=== PATIENT | female | born 1960 | race Caucasian/White ===

== ENCOUNTER → 2017-07-17 | Day surgery (SDC) | payer OTHER, MEDICAID, SELFPAY | END | disposition home or self-care (01) | PROVIDERS: Family Provider Family Medicine; PCP Family Medicine; Visit Provider Surgery | DX: Z12.11 Encounter for screening for malignant neoplasm of colon (principal); K57.30 Diverticulosis of large intestine without perforation or abscess without bleeding; K64.0 First degree hemorrhoids | CPT/HCPCS: 45378; 99152; 99153; J2250; J3010 ==

== ENCOUNTER → 2018-01-02 06:58 | Outpatient (CLI) | payer OTHER, MEDICAID, SELFPAY ==
[2018-01-02 08:19] LABS: Add Manual Diff / Slide Review NO; Basophils Percent Auto 0.8 % (0-2); Eosinophils Percent Auto 1.2 % (2-4); Hematocrit 39.1 % (36-46); Hemoglobin 13.4 g/dL (12.0-16.0); Lymphocytes Percent Auto 47.1 % (25-40); Mean Corpuscular HGB Conc 34.3 % (30-36); Mean Corpuscular Hemoglobin 33.6 PG (26-34); Mean Corpuscular Volume 97.9 fL (80-100); Monocytes Percent Auto 13.5 % (3-14); Neutrophils Absolute Auto 1300 /uL (3000-5900); Neutrophils Percent Auto 37.4 % (50-75); Platelet Count 150 X10^3/uL (150-400); Red Blood Cell Count 3.99 X10^6/uL (4.0-5.2); Red Cell Distribution Width 13.4 % (11.6-14.8); White Blood Cell Count 3.4 X10^3/uL (4.5-11.0)
[2018-01-02 09:14] LABS: Alanine Aminotransferase 34 IU/L (9-52); Albumin 4.7 g/dL (3.5-5.0); Albumin Globulin Ratio 1.7 (1.0-2.8); Alkaline Phosphatase 46 U/L (38-126); Aspartate Aminotransferase 26 IU/L (14-36); BUN Creatinine Ratio 41.4 (6-22); Bilirubin Total 0.5 mg/dL (0.2-1.3); Blood Urea Nitrogen 29 mg/dL (7-17); Calcium 9.4 mg/dL (8.4-10.2); Carbon Dioxide 27 mmol/L (22-32); Chloride 97 mmol/L (98-107); Cholesterol 160 mg/dL (140-199); Estimated Glomerular Filt Rate > 60.0 mL/min (>60); Globulin 2.7 g/dL (1.7-4.1); Glucose 91 mg/dL (70-100); HDL Cholesterol 70 mg/dL (40-60); HEMOLYSIS < 15 (0-50); LDL Cholesterol Calculated 76 mg/dL (<100); Potassium 4.2 mmol/L (3.4-5.1); Sodium 134 mmol/L (137-145); Total Protein 7.4 g/dL (6.3-8.2); Triglycerides 72 mg/dL (35-150)
[2018-01-02 09:57] LABS: Thyroid Stimulating Hormone 4.47 uIU/mL (0.47-4.68)
== END ==
PROVIDERS: PCP Family Medicine; Visit Provider Family Medicine
DX: R60.9 Edema, unspecified (principal)
CPT/HCPCS: 36415; 80053; 80061; 84443; 85025

== ENCOUNTER 2018-01-07 13:00 | Emergency (ER) | payer OTHER, MEDICAID, SELFPAY ==
[2018-01-07 13:03] VITALS: BP 143/82; PULSE 84; RESP 16; TEMP 37; O2SAT 98; BMI 19.5
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
--- NOTE | 2018-01-07 13:41 | PC.NURSE ---
rock worker aware of need for resources. Will be down shortly.
[2018-01-07 13:44] LABS: Add Manual Diff / Slide Review NO; Basophils Percent Auto 0.9 % (0-2); Eosinophils Percent Auto 0.7 % (2-4); Hematocrit 39.5 % (36-46); Hemoglobin 13.2 g/dL (12.0-16.0); Lymphocytes Percent Auto 35.3 % (25-40); Mean Corpuscular HGB Conc 33.3 % (30-36); Mean Corpuscular Hemoglobin 32.8 PG (26-34); Mean Corpuscular Volume 98.3 fL (80-100); Monocytes Percent Auto 16.7 % (3-14); Neutrophils Absolute Auto 1800 /uL (3000-5900); Neutrophils Percent Auto 46.4 % (50-75); Platelet Count 147 X10^3/uL (150-400); Red Blood Cell Count 4.02 X10^6/uL (4.0-5.2)
[2018-01-07 13:59] LABS: Acetaminophen < 10 ug/mL (10-30); Alanine Aminotransferase 57 IU/L (9-52); Albumin 4.5 g/dL (3.5-5.0); Albumin Globulin Ratio 1.6 (1.0-2.8); Alkaline Phosphatase 55 U/L (38-126); Aspartate Aminotransferase 73 IU/L (14-36); Bilirubin Total 0.3 mg/dL (0.2-1.3); Blood Urea Nitrogen 17 mg/dL (7-17); Calcium 8.3 mg/dL (8.4-10.2); Carbon Dioxide 29 mmol/L (22-32); Chloride 107 mmol/L (98-107); Estimated Glomerular Filt Rate > 60.0 mL/min (>60); Globulin 2.8 g/dL (1.7-4.1); Glucose 89 mg/dL (70-100); HEMOLYSIS < 15 (0-50); Potassium 3.9 mmol/L (3.4-5.1); Sodium 153 mmol/L (137-145); Total Protein 7.3 g/dL (6.3-8.2)
[2018-01-07 14:00] LABS: Salicylate < 1.0 mg/dL (<20)
[2018-01-07 14:12] LABS: Ethanol (ETOH) 467 mg/dL
--- NOTE | 2018-01-07 15:13 | PC.NURSE ---
director of social media marketing at bedside.
[2018-01-07] MEDS: MULTIVITAMIN 1 TABLET 1 TAB PO (15:28)
[2018-01-07] MEDS: THIAMINE 100 MG TABLET PO (15:28)
--- NOTE | 2018-01-07 16:35 | PC.NURSE ---
pt given food, and three cups of water.
--- NOTE | 2018-01-07 17:36 | PC.NURSE ---
Spoke w/ pt brother Silviano is coming to get patient and will take responsibility for her. She is ambulatory, speech is clear, taking po fluids / food. Tearful but easily calmed verbally.
[2018-01-07 17:43] VITALS: BP 132/77; PULSE 93; RESP 17; O2SAT 100
[2018-01-07 19:32] VITALS: BP 128/78; PULSE 78; RESP 14; O2SAT 98
--- NOTE | 2018-01-07 19:33 | PC.NURSE ---
Cleared for discharge. Pt clear mentation, steady gait, tolerating po fluids, clear speech. Home via cab.
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
== END 2018-01-07 19:35 | disposition home or self-care (01) ==
PROVIDERS: Emergency Provider Nurse Practitioner Family
DX: F10.929 Alcohol use, unspecified with intoxication, unspecified (principal)
CPT/HCPCS: 36415; 80053; 80320; 80329; 82075; 85025; 99283; G0480

== ENCOUNTER 2018-07-23 16:10 | Emergency (ER) | payer OTHER, MEDICAID, SELFPAY ==
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
--- NOTE | 2018-07-23 16:11 | DI.CT.S_ITS ---
PROCEDURE: CT CERVICAL SPINE WO CON INDICATIONS: ETOH right sided pain TECHNIQUE: Noncontrast 3 mm thick sections acquired from the skull base to the T4 level. Sagittal and coronal reformats were then constructed. For radiation dose reduction, the following was used: automated exposure control, adjustment of mA and/or kV according to patient size. COMPARISON: None. FINDINGS: Image quality: Excellent. Bones: No fractures or dislocations. Visualized superior ribs are intact. Spine degenerative disc disease and facet arthropathy. Soft tissues: Prevertebral soft tissues are normal in thickness. No paravertebral hematomas. No apical pneumothoraces. IMPRESSION: No fracture. No acute osseous lesion. If symptoms and/or clinical suspicion for pathology persists, evaluation with MRI may be helpful for further assessment. Dictated by: Juliane Harris MD, PhD on 07/23/2018 at 16:30 Approved by: Juliane Harris MD, PhD on 07/23/2018 at 16:45
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
[2018-07-23 16:17] VITALS: BP 140/89; PULSE 95; RESP 18; TEMP 36.6; O2SAT 97
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
[2018-07-23 16:34] VITALS: BP 140/89; PULSE 95; RESP 18; TEMP 36.6; O2SAT 97
--- NOTE | 2018-07-23 16:41 | PC.NURSE ---
eye ph tested. 7.0, neutral.
--- NOTE | 2018-07-23 17:24 | PC.NURSE ---
Pt ambulatory from ED. Per Doctor Leon, pt has been discharged. Pt left with out papers Primary RN notified.
--- NOTE | 2018-07-23 18:18 | PC.NURSE ---
cervical collar added on arrival, [address] head [address] neck [address]
== END 2018-07-23 18:19 | disposition home or self-care (01) ==
PROVIDERS: Emergency Provider Emergency Medicine; Family Provider Family Medicine; PCP Family Medicine
DX: S16.1XXA Strain of muscle, fascia and tendon at neck level, initial encounter (principal); V43.52XA Car driver injured in collision with other type car in traffic accident, initial encounter
CPT/HCPCS: 70450; 71045; 72125; 99282; 99284

== ENCOUNTER 2019-09-26 11:19 | Inpatient (IN) | payer OTHER, MEDICAID, SELFPAY ==
[2019-09-26] VITALS (38 sets, daily range): BP systolic 100–172; BP diastolic 64–94; PULSE 75–189; RESP 12–32; TEMP 36.5–37.3; O2SAT 88–100; BMI 19.9
--- NOTE | 2019-09-26 11:23 | ED.ALCOHOL ---
HPI - Alcohol General Chief Complaint: Trauma Stated Complaint: Detox Time Seen by Provider: 09/26/19 11:23 History of Present Illness HPI narrative: CC: alcohol intoxication, agitated questionable withdrawal HPI: The patient is a 59-year-old female who is a known chronic alcoholic. The patient just prior to arrival was found on the floor by her father and brother. The patient was initially unresponsive. The patient has become agitated since then flailing her arms around. With diffuse tremor. There has been no apparent seizure activity. It is unknown whether not the patient has had alcoholic delirium tremens or alcoholic withdrawal seizures in the past. She has multiple bruises over her right chin and face neck arms knees and legs. The patient is unable at this time to provide any history of her own. Because of the patient's flailing and agitation 2 mg of Ativan has been administered IV. The patient at this time does not appear to be having an active seizure but appears to be acutely delirious. Related Data Home Medications Medication Instructions Recorded Confirmed No Known Home Medications 12/12/17 11/06/18 Allergies Allergy/AdvReac Type Severity Reaction Status Date / Time No Known Allergies Allergy Verified 11/06/18 10:51 Review of Systems Review of Systems Narrative: At this time because of the patient's mental status we are unable to obtain review of systems. Patient History Medical History (Updated 09/26/19 @ 16:31 by Osmin Andrade DO) Alcohol abuse (Acute 06/05/15) Alcohol withdrawal delirium (Acute) Social History Smoking Status: Never smoker Smoking Status: Never smoker alcohol intake frequency: 0-2 drinks per day Substance Use Type: does not use Exam Narrative Exam Narrative: PHYSICAL EXAM: CONSTITUTIONAL: The patient is acutely delirious, thrashing about throwing her arms around. She does not answer any questions. She questionably may be seizing. She has rhythm at a cool motions of her eyes and her mouth. She is staring straight ahead. HEAD: AT/NC except for extensive bruising of her right cheek and chin and neck with a combination of violaceous and yellow brown bruising which questionably indicates more than at acute bruising. EENT: PERRL, NOSE:No epistaxis or nasal drainage MOUTH: The patient's has brownish discoloration around her lips. She does not cooperate or follow directions and open her mouth. NECK: Supple, no obvious JVD, Trachea is midline without stridor, no palpable LN. SPINE: Palpation of the cervical, Thoracic, Lumbar or Sacral spine reveals no gross deformity or tenderness. No CVA tenderness. No bruising of her chest costovertebral angle pelvis or sacrum on rolling the patient over. THORAX: No deformity, retractions, chest wall tenderness. LUNGS: Clear symmetrical spontaneous respirations. HEART: Regular rhythm and rate with distant heart tones no murmur. ABDOMEN: Soft, non-tender, no guarding, rebound, rigidity or palpable mass. LYMPHATIC: no palpable lymph nodes or spleen. EXTREMITIES: No edema, deformity, tenderness or cyanosis. The patient has multiple scattered bruises over her knee he says with a few abrasions over her anterior legs and her dorsal surface of her feet. SKIN: No rash, NEURO: Cranial nerves appear to be symmetrical without facial asymmetry. She moves all 4 extremities in withdrawal to noxious stimuli. The patient has been sedated with a total of 4 mg of Ativan IV and 500 mg of Keppra. MENTAL HEALTH: Acute delirium with agitation secondary to acute alcohol withdrawal. Initial Vital Signs Initial Vital Signs: Vital Signs Temperature 99.1 F 09/26/19 11:28 Pulse Rate 122 H 09/26/19 11:28 Respiratory Rate 22 09/26/19 11:28 Blood Pressure 157/84 H 09/26/19 11:28 Pulse Oximetry 96 09/26/19 11:28 Course Course Course Narrative: 1139: The patient was administered 2 mg of Ativan which partially helped to calm her agitation down. However now she is moving her jaw arithmetic Ce arm biting up and down as though she may be seizing. The other question is whether not this is a tardive dyskinetic motion. The patient will be administered 25 mg of Benadryl IV. 12:11 the patient's lactic acid is elevated at 5.5. She has a white blood count of 11.5. A cath urinalysis reveals that she has a urinary tract infection. Is the patient's lactic acid elevated because she is dehydrated, did she have a alcohol withdrawal seizure or is it elevated because she is septic secondary to urinary tract infection the patient has been ordered 2 L of normal saline as a bolus rehydration after which a repeat lactate will be checked. Do blood cultures have been ordered on the patient and she will be administered 2 g of cefepime. 1255: The patient's WBC is 11.5, hemoglobin 14.9, hematocrit 44.0, platelets 38103, protime 11.2, INR 1.0, PTT 26 seconds, sodium 147, potassium low at 3.3, chloride 104, CO2 21, BUN 61, glucose 115, creatinine 1.03, GFR 55. Lactic acid is 5.4, bilirubin is 2.4, AST 1 1116, ALT 316, alk-phos 75, urine drug screen is negative. CPK is 50,155 consistent with rhabdomyolysis troponin is 0.014. The patient's EtOH remains pending as well as serum ammonia. Chest x-ray reveals no acute cardiopulmonary pathology no evidence of aspiration. CT of the patient's cervical spine reveals no acute cervical spine fracture malalignment however there is cervical spondylosis. CT of the patient's head reveals greater than expected parenchymal volume loss. However there is no evidence of an acute stroke hemorrhage mass effect. The patient will need to be transferred to a facility that has dialysis capabilities. I will call [facility] to discuss transferring the patient. 1313: The patient's alcohol is 0. I believe the patient is going through alcohol withdrawal and it is unknown how long she was down on the floor in her residence. 1345: Serum ammonia is 11 1408: I discussed the patient with the automatic door mechanic on-call at [facility] and he felt that the patient does not need immediate transfer to be seen by a automatic door mechanic at this time her original creatinine was 0.5 with a normal GFR. Today her creatinine is 1.05 with a GFR of 55. He states that they would do nothing more than to continue to hydrate the patient for the next 24-48 hours and after that if her renal function deteriorated he would be more than willing to arm consult and except the patient in transfer. I am going to repeat the patient's creatinine and GFR as well as CPK and discuss the patient with the [facility] hospitalist on-call. 1468 I discussed the patient with the hospitalist Dr. Andrade who requested that I repeat the patient's liver function tests and obtain a salicylate level and acetaminophen level. To be sure that this is all secondary to acute alcohol withdrawal and acute alcoholism rather than a toxic exposure acetaminophen, salicylate or other drugs. 1500: After 2 L of fluid rehydration the patient's lactic acid is down to 0.7 from 5.5 suggesting that the patient may have had an alcohol withdrawal seizure. Her CPK is significantly improved and is down to 30,739. A salicylate level and acetaminophen level remain pending at this time. The rest of the patient's urine drug screen was negative for any other drugs. 1546: The patient has been admitted to the intensive care unit for delirium tremens and alcohol withdrawal to the care of . The patient's AST he has dropped to 706 ALT is 216 an acetaminophen is less than 10 and salicylate is 1. The patient's abnormal liver functions appear to be all secondary to her chronic alcoholism. Orders Ordered: ED Orders 09/26/19 11:05 Complete Blood Count AUTO DIFF Stat Comprehensive Metabolic Panel Stat Ethanol (ETOH) Stat Magnesium Stat Partial Thromboplastin Time Stat Prothrombin Time INR Stat Troponin & CK Cardiac Panel Stat 09/26/19 11:27 CT head/brain wo con Stat XR chest 1V Stat 09/26/19 11:29 CT cervical spine wo con Stat 09/26/19 11:35 Ictotest Urine Stat Lactate (Lactic Acid) Stat Type and Screen Stat Urinalysis and Microscopic Stat Urine Culture Stat Urine Drug Screen, Rapid Stat EKG-12 Lead Stat 09/26/19 11:45 Arterial Blood Gas Stat 09/26/19 12:45 Blood Culture Stat 09/26/19 13:20 Ammonia (NH3) Stat 09/26/19 14:20 Acetaminophen Stat CKMB Panel (CK + CKMB) Stat Creatinine & eGFR Stat Hepatic (Liver) Panel Stat Salicylate Stat Acetaminophen (Tylenol) 650 mg PO Q6HR PRN PRN Reason: Fever/Mild Pain (1-3) Folic Acid (Folic Acid) 1 mg PO DAILY INEZ Dextrose (Dextrose 5% Water) 1,000 mls @ 150 mls/hr IV CONT INEZ Last Admin: 09/26/19 16:42 Dose: 150 mls/hr Documented by: MSTEWART Ceftriaxone Sodium/Dextrose (Rocephin) 1 gm in 50 mls @ 100 mls/hr IV Q24H INEZ Lorazepam (Ativan) 0 mg IV CIWAPRN PRN; Protocol PRN Reason: Alcohol Withdrawal Multivitamins (Tab-A-Thompson) 1 tab PO DAILY INEZ Naloxone HCl (Narcan) 0.2 mg IV Q2MIN PRN PRN Reason: Opiate Reversal Ondansetron HCl (Zofran) 4 mg IV Q8HR PRN PRN Reason: Nausea And Vomiting Last Admin: 09/26/19 16:42 Dose: 4 mg Documented by: SAVANNA Discontinued Medications Diphenhydramine HCl (Benadryl) 25 mg IV NOW ONE Stop: 09/26/19 11:42 Last Admin: 09/26/19 11:52 Dose: 25 mg Documented by: DYAN Sodium Chloride (Normal Saline 0.9%) 1,000 mls @ 2,000 mls/hr IV BOLUS PRN PRN Reason: Fluid replacement Last Infusion: 09/26/19 13:35 Dose: 0 mls/hr Documented by: Admin: 09/26/19 11:41 Dose: 2,000 mls/hr Documented by: DYAN Levetiracetam 500 mg/ Sodium (Chloride) 105 mls @ 420 mls/hr IV NOW ONE Stop: 09/26/19 11:39 Last Infusion: 09/26/19 12:15 Dose: 0 mls/hr Documented by: Admin: 09/26/19 11:46 Dose: 420 mls/hr Documented by: DYAN Cefepime HCl 2 gm/ Sodium (Chloride) 100 mls @ 200 mls/hr IV NOW ONE Stop: 09/26/19 12:14 Last Infusion: 09/26/19 13:36 Dose: 0 mls/hr Documented by: Admin: 09/26/19 12:53 Dose: 200 mls/hr Documented by: WENDY Sodium Chloride (Normal Saline 0.9%) 1,000 mls @ 150 mls/hr IV CONT INEZ Last Infusion: 09/26/19 15:39 Dose: 0 mls/hr Documented by: Admin: 09/26/19 13:44 Dose: 150 mls/hr Documented by: WENDY Lorazepam (Ativan) 2 mg IV NOW ONE Stop: 09/26/19 11:24 Last Admin: 09/26/19 11:40 Dose: 2 mg Documented by: DYAN Lorazepam (Ativan) 2 mg IV NOW ONE Stop: 09/26/19 11:38 Last Admin: 09/26/19 12:47 Dose: Not Given Documented by: TAL Phenobarbital Sodium (Phenobarbital Sodium) 65 mg IV NOW ONE Stop: 09/26/19 16:16 Thiamine HCl (Vitamin B-1) 100 mg IV NOW ONE Stop: 09/26/19 11:31 Last Admin: 09/26/19 11:40 Dose: 100 mg Documented by: DYAN Vital Signs Vital signs: Vital Signs - 8 hr 09/26/19 11:28 09/26/19 11:35 09/26/19 11:50 Temperature 99.1 F Pulse Rate 122 H 96 H 92 H Respiratory Rate 22 18 19 Blood Pressure 157/84 H 151/70 H Pulse Oximetry 96 99 98 09/26/19 12:00 09/26/19 12:22 09/26/19 12:30 Temperature Pulse Rate 90 189 H 85 Respiratory Rate 20 20 32 H Blood Pressure 116/74 Pulse Oximetry 98 88 L 100 09/26/19 12:34 09/26/19 12:45 09/26/19 13:00 Temperature Pulse Rate 87 80 84 Respiratory Rate 24 18 19 Blood Pressure 170/93 H 143/86 H 147/89 H Pulse Oximetry 100 99 99 09/26/19 13:15 09/26/19 13:30 09/26/19 13:45 Temperature Pulse Rate 85 83 82 Respiratory Rate 17 15 12 Blood Pressure 125/76 121/72 134/75 Pulse Oximetry 98 99 100 09/26/19 14:00 09/26/19 14:15 09/26/19 14:36 Temperature Pulse Rate 82 80 95 H Respiratory Rate 15 14 21 Blood Pressure 125/74 125/72 172/94 H Pulse Oximetry 100 99 100 09/26/19 14:45 Temperature Pulse Rate 95 H Respiratory Rate 23 Blood Pressure 155/82 H Pulse Oximetry 99 MDM - Alcohol Medical Records Attestation: I reviewed the patient's medical records. Lab Data Attestation: I reviewed the patient's lab results. Result diagrams: 09/26/19 11:05 09/26/19 14:20 Labs: Lab Results 09/26/19 09/26/19 09/26/19 Range/Units 11:05 11:05 11:05 WBC 11.5 H (4.5-11.0) X10^3/uL RBC 4.48 (4.0-5.2) X10^6/uL Hgb 14.9 (12.0-16.0) g/dL Hct 44.3 (36-46) % MCV 98.8 (80-100) fL MCH 33.2 (26-34) PG MCHC 33.6 (30-36) % RDW 13.3 (11.6-14.8) % Plt Count 87 L (150-400) X10^3/uL Neut % (Auto) 78.3 H (50-75) % Lymph % (Auto) 7.2 L (25-40) % Allen % (Auto) 14.4 H (3-14) % Eos % (Auto) 0.0 L (2-4) % Baso % (Auto) 0.1 (0-2) % Neut # (Auto) 9000 H (0773-4474) /uL Lymph # (Auto) 800 L (7284-5610) /uL Allen # (Auto) 1700 H (0-900) /uL Eos # (Auto) 0 (0-450) /uL Baso # (Auto) 0 (0-100) /uL PT 11.2 (10.1-12.7) SECONDS INR 1.0 (0.9-1.3) APTT 26 L (26.4-36.2) SECONDS ABG pH (7.35-7.45) ABG pCO2 (35-45) mmHg ABG pO2 (80-100) mmHg ABG HCO3 (22-26) mmol/L ABG Total CO2 (21-31) mmol/L ABG O2 Saturation (95-100) % ABG Base Excess (-2-2) mmol/L FiO2 Sodium 147 H (137-145) mmol/L Potassium 3.3 L (3.4-5.1) mmol/L Chloride 104 (98-107) mmol/L Carbon Dioxide 21 L (22-32) mmol/L BUN 61 H (7-17) mg/dL Creatinine 1.03 (0.52-1.04) mg/dL Estimated GFR 55.0 L (>60) mL/min BUN/Creatinine Ratio 59.2 H (6-22) Glucose 115 H (70-100) mg/dL Lactate (0.7-2.1) mmol/L Calcium 11.1 H (8.4-10.2) mg/dL Magnesium (1.6-2.3) mg/dL Total Bilirubin 2.4 H (0.2-1.3) mg/dL Conjugated Bilirubin (0.0-0.3) md/dL Unconjugated Bilirubin (0.0-1.1) mg/dL AST 1116 H (14-36) IU/L ALT 316 H (<35) IU/L Alkaline Phosphatase 75 (38-126) U/L Ammonia (9-30) umol/L Total Creatine Kinase 87406 H (30-135) U/L CK-MB (CK-2) 32.90 H (<2.37) ng/mL CK-MB (CK-2) Rel Index 0.1 L (1.5-5.0) % Troponin I 0.014 (0.01-0.034) ng/mL Total Protein 9.4 H (6.3-8.2) g/dL Albumin 5.3 H (3.5-5.0) g/dL Globulin 4.1 (1.7-4.1) g/dL Albumin/Globulin Ratio 1.3 (1.0-2.8) Urine Color Urine Appearance Urine pH (4.5-8.0) Ur Specific [place] (1.000-1.035) Urine Protein (Negative) Urine Glucose (UA) (Negative) g/dL Urine Ketones (NEGATIVE) Urine Occult Blood (Negative) Urine Nitrate (Negative) Urine Bilirubin (NEGATIVE) Ur Bilirubin Confirm (Negative) Urine Urobilinogen (0.2) E.U./dL Ur Leukocyte Esterase (NEGATIVE) Urine RBC (0-5/HPF) Urine WBC (0-5/HPF) Urine Bacteria (None) Hyaline Casts (None) Urine Mucus (Negative) Ur Culture Indicated? Salicylates (<20) mg/dL U Opiates 300ng/mL cut (Negative) Ur Oxycodone Screen (Negative) Urine Methadone Screen (Negative) Acetaminophen (10-30) ug/mL Ur Barbiturates Screen (Negative) U Tricyclic Antidepress (Negative) Ur Phencyclidine Scrn (Negative) Ur Amphetamines Screen (Negative) U Methamphetamines Scrn (Negative) Ur MDMA Scrn (Ecstasy) (Negative) U Benzodiazepines Scrn (Negative) Urine Cocaine Screen (Negative) U Marijuana (THC) Screen (Negative) Ethyl Alcohol < 10 ( - 10) mg/dL COVID-19 PCR (Negative) Blood Type Antibody Screen 09/26/19 09/26/19 09/26/19 Range/Units 11:05 11:05 11:35 WBC (4.5-11.0) X10^3/uL RBC (4.0-5.2) X10^6/uL Hgb (12.0-16.0) g/dL Hct (36-46) % MCV (80-100) fL MCH (26-34) PG MCHC (30-36) % RDW (11.6-14.8) % Plt Count (150-400) X10^3/uL Neut % (Auto) (50-75) % Lymph % (Auto) (25-40) % Allen % (Auto) (3-14) % Eos % (Auto) (2-4) % Baso % (Auto) (0-2) % Neut # (Auto) (1337-9773) /uL Lymph # (Auto) (7941-5849) /uL Allen # (Auto) (0-900) /uL Eos # (Auto) (0-450) /uL Baso # (Auto) (0-100) /uL PT (10.1-12.7) SECONDS INR (0.9-1.3) APTT (26.4-36.2) SECONDS ABG pH (7.35-7.45) ABG pCO2 (35-45) mmHg ABG pO2 (80-100) mmHg ABG HCO3 (22-26) mmol/L ABG Total CO2 (21-31) mmol/L ABG O2 Saturation (95-100) % ABG Base Excess (-2-2) mmol/L FiO2 Sodium (137-145) mmol/L Potassium (3.4-5.1) mmol/L Chloride (98-107) mmol/L Carbon Dioxide (22-32) mmol/L BUN (7-17) mg/dL Creatinine (0.52-1.04) mg/dL Estimated GFR (>60) mL/min BUN/Creatinine Ratio (6-22) Glucose (70-100) mg/dL Lactate 5.4 H* (0.7-2.1) mmol/L Calcium (8.4-10.2) mg/dL Magnesium 2.5 H (1.6-2.3) mg/dL Total Bilirubin (0.2-1.3) mg/dL Conjugated Bilirubin (0.0-0.3) md/dL Unconjugated Bilirubin (0.0-1.1) mg/dL AST (14-36) IU/L ALT (<35) IU/L Alkaline Phosphatase (38-126) U/L Ammonia (9-30) umol/L Total Creatine Kinase (30-135) U/L CK-MB (CK-2) (<2.37) ng/mL CK-MB (CK-2) Rel Index (1.5-5.0) % Troponin I (0.01-0.034) ng/mL Total Protein (6.3-8.2) g/dL Albumin (3.5-5.0) g/dL Globulin (1.7-4.1) g/dL Albumin/Globulin Ratio (1.0-2.8) Urine Color Urine Appearance Urine pH (4.5-8.0) Ur Specific [place] (1.000-1.035) Urine Protein (Negative) Urine Glucose (UA) (Negative) g/dL Urine Ketones (NEGATIVE) Urine Occult Blood (Negative) Urine Nitrate (Negative) Urine Bilirubin (NEGATIVE) Ur Bilirubin Confirm (Negative) Urine Urobilinogen (0.2) E.U./dL Ur Leukocyte Esterase (NEGATIVE) Urine RBC (0-5/HPF) Urine WBC (0-5/HPF) Urine Bacteria (None) Hyaline Casts (None) Urine Mucus (Negative) Ur Culture Indicated? Salicylates (<20) mg/dL U Opiates 300ng/mL cut (Negative) Ur Oxycodone Screen (Negative) Urine Methadone Screen (Negative) Acetaminophen (10-30) ug/mL Ur Barbiturates Screen (Negative) U Tricyclic Antidepress (Negative) Ur Phencyclidine Scrn (Negative) Ur Amphetamines Screen (Negative) U Methamphetamines Scrn (Negative) Ur MDMA Scrn (Ecstasy) (Negative) U Benzodiazepines Scrn (Negative) Urine Cocaine Screen (Negative) U Marijuana (THC) Screen (Negative) Ethyl Alcohol Cancelled ( - 10) mg/dL COVID-19 PCR (Negative) Blood Type Antibody Screen 09/26/19 09/26/1909/25/20 Range/Units 11:35 11:35 11:35 WBC (4.5-11.0) X10^3/uL RBC (4.0-5.2) X10^6/uL Hgb (12.0-16.0) g/dL Hct (36-46) % MCV (80-100) fL MCH (26-34) PG MCHC (30-36) % RDW (11.6-14.8) % Plt Count (150-400) X10^3/uL Neut % (Auto) (50-75) % Lymph % (Auto) (25-40) % Allen % (Auto) (3-14) % Eos % (Auto) (2-4) % Baso % (Auto) (0-2) % Neut # (Auto) (1712-5456) /uL Lymph # (Auto) (5283-6866) /uL Allen # (Auto) (0-900) /uL Eos # (Auto) (0-450) /uL Baso # (Auto) (0-100) /uL PT (10.1-12.7) SECONDS INR (0.9-1.3) APTT (26.4-36.2) SECONDS ABG pH (7.35-7.45) ABG pCO2 (35-45) mmHg ABG pO2 (80-100) mmHg ABG HCO3 (22-26) mmol/L ABG Total CO2 (21-31) mmol/L ABG O2 Saturation (95-100) % ABG Base Excess (-2-2) mmol/L FiO2 Sodium (137-145) mmol/L Potassium (3.4-5.1) mmol/L Chloride (98-107) mmol/L Carbon Dioxide (22-32) mmol/L BUN (7-17) mg/dL Creatinine (0.52-1.04) mg/dL Estimated GFR (>60) mL/min BUN/Creatinine Ratio (6-22) Glucose (70-100) mg/dL Lactate (0.7-2.1) mmol/L Calcium (8.4-10.2) mg/dL Magnesium (1.6-2.3) mg/dL Total Bilirubin (0.2-1.3) mg/dL Conjugated Bilirubin (0.0-0.3) md/dL Unconjugated Bilirubin (0.0-1.1) mg/dL AST (14-36) IU/L ALT (<35) IU/L Alkaline Phosphatase (38-126) U/L Ammonia (9-30) umol/L Total Creatine Kinase (30-135) U/L CK-MB (CK-2) (<2.37) ng/mL CK-MB (CK-2) Rel Index (1.5-5.0) % Troponin I (0.01-0.034) ng/mL Total Protein (6.3-8.2) g/dL Albumin (3.5-5.0) g/dL Globulin (1.7-4.1) g/dL Albumin/Globulin Ratio (1.0-2.8) Urine Color Yellow Urine Appearance Sl cloudy Urine pH 6.5 (4.5-8.0) Ur Specific [place] 1.020 (1.000-1.035) Urine Protein 3+ H (Negative) Urine Glucose (UA) Negative (Negative) g/dL Urine Ketones 1+ H (NEGATIVE) Urine Occult Blood 3+ H (Negative) Urine Nitrate Positive H (Negative) Urine Bilirubin 1+ H (NEGATIVE) Ur Bilirubin Confirm Negative (Negative) Urine Urobilinogen 0.2 (0.2) E.U./dL Ur Leukocyte Esterase 1+ H (NEGATIVE) Urine RBC 1-5/hpf (0-5/HPF) Urine WBC 30-100/hpf H (0-5/HPF) Urine Bacteria Many (>30) H (None) Hyaline Casts 0-1/lpf (None) Urine Mucus 2+ H (Negative) Ur Culture Indicated? Specimen cultured Salicylates (<20) mg/dL U Opiates 300ng/mL cut Negative (Negative) Ur Oxycodone Screen Negative (Negative) Urine Methadone Screen Negative (Negative) Acetaminophen (10-30) ug/mL Ur Barbiturates Screen Negative (Negative) U Tricyclic Antidepress Negative (Negative) Ur Phencyclidine Scrn Negative (Negative) Ur Amphetamines Screen Negative (Negative) U Methamphetamines Scrn Negative (Negative) Ur MDMA Scrn (Ecstasy) Negative (Negative) U Benzodiazepines Scrn Negative (Negative) Urine Cocaine Screen Negative (Negative) U Marijuana (THC) Screen Negative (Negative) Ethyl Alcohol ( - 10) mg/dL COVID-19 PCR (Negative) Blood Type A Positive Antibody Screen Negative 09/26/19 09/26/19 09/26/19 Range/Units 11:45 13:20 13:35 WBC (4.5-11.0) X10^3/uL RBC (4.0-5.2) X10^6/uL Hgb (12.0-16.0) g/dL Hct (36-46) % MCV (80-100) fL MCH (26-34) PG MCHC (30-36) % RDW (11.6-14.8) % Plt Count (150-400) X10^3/uL Neut % (Auto) (50-75) % Lymph % (Auto) (25-40) % Allen % (Auto) (3-14) % Eos % (Auto) (2-4) % Baso % (Auto) (0-2) % Neut # (Auto) (9882-4717) /uL Lymph # (Auto) (9227-0693) /uL Allen # (Auto) (0-900) /uL Eos # (Auto) (0-450) /uL Baso # (Auto) (0-100) /uL PT (10.1-12.7) SECONDS INR (0.9-1.3) APTT (26.4-36.2) SECONDS ABG pH 7.38 (7.35-7.45) ABG pCO2 30.4 L (35-45) mmHg ABG pO2 84 (80-100) mmHg ABG HCO3 18 L (22-26) mmol/L ABG Total CO2 19 L (21-31) mmol/L ABG O2 Saturation 96 (95-100) % ABG Base Excess -7.0 L (-2-2) mmol/L FiO2 21 Sodium (137-145) mmol/L Potassium (3.4-5.1) mmol/L Chloride (98-107) mmol/L Carbon Dioxide (22-32) mmol/L BUN (7-17) mg/dL Creatinine (0.52-1.04) mg/dL Estimated GFR (>60) mL/min BUN/Creatinine Ratio (6-22) Glucose (70-100) mg/dL Lactate (0.7-2.1) mmol/L Calcium (8.4-10.2) mg/dL Magnesium (1.6-2.3) mg/dL Total Bilirubin (0.2-1.3) mg/dL Conjugated Bilirubin (0.0-0.3) md/dL Unconjugated Bilirubin (0.0-1.1) mg/dL AST (14-36) IU/L ALT (<35) IU/L Alkaline Phosphatase (38-126) U/L Ammonia 11 (9-30) umol/L Total Creatine Kinase (30-135) U/L CK-MB (CK-2) (<2.37) ng/mL CK-MB (CK-2) Rel Index (1.5-5.0) % Troponin I (0.01-0.034) ng/mL Total Protein (6.3-8.2) g/dL Albumin (3.5-5.0) g/dL Globulin (1.7-4.1) g/dL Albumin/Globulin Ratio (1.0-2.8) Urine Color Urine Appearance Urine pH (4.5-8.0) Ur Specific [place] (1.000-1.035) Urine Protein (Negative) Urine Glucose (UA) (Negative) g/dL Urine Ketones (NEGATIVE) Urine Occult Blood (Negative) Urine Nitrate (Negative) Urine Bilirubin (NEGATIVE) Ur Bilirubin Confirm (Negative) Urine Urobilinogen (0.2) E.U./dL Ur Leukocyte Esterase (NEGATIVE) Urine RBC (0-5/HPF) Urine WBC (0-5/HPF) Urine Bacteria (None) Hyaline Casts (None) Urine Mucus (Negative) Ur Culture Indicated? Salicylates (<20) mg/dL U Opiates 300ng/mL cut (Negative) Ur Oxycodone Screen (Negative) Urine Methadone Screen (Negative) Acetaminophen (10-30) ug/mL Ur Barbiturates Screen (Negative) U Tricyclic Antidepress (Negative) Ur Phencyclidine Scrn (Negative) Ur Amphetamines Screen (Negative) U Methamphetamines Scrn (Negative) Ur MDMA Scrn (Ecstasy) (Negative) U Benzodiazepines Scrn (Negative) Urine Cocaine Screen (Negative) U Marijuana (THC) Screen (Negative) Ethyl Alcohol ( - 10) mg/dL COVID-19 PCR Negative (Negative) Blood Type Antibody Screen 09/26/19 09/26/1909/25/20 Range/Units 14:00 14:20 14:20 WBC (4.5-11.0) X10^3/uL RBC (4.0-5.2) X10^6/uL Hgb (12.0-16.0) g/dL Hct (36-46) % MCV (80-100) fL MCH (26-34) PG MCHC (30-36) % RDW (11.6-14.8) % Plt Count (150-400) X10^3/uL Neut % (Auto) (50-75) % Lymph % (Auto) (25-40) % Allen % (Auto) (3-14) % Eos % (Auto) (2-4) % Baso % (Auto) (0-2) % Neut # (Auto) (8022-3603) /uL Lymph # (Auto) (7001-7325) /uL Allen # (Auto) (0-900) /uL Eos # (Auto) (0-450) /uL Baso # (Auto) (0-100) /uL PT (10.1-12.7) SECONDS INR (0.9-1.3) APTT (26.4-36.2) SECONDS ABG pH (7.35-7.45) ABG pCO2 (35-45) mmHg ABG pO2 (80-100) mmHg ABG HCO3 (22-26) mmol/L ABG Total CO2 (21-31) mmol/L ABG O2 Saturation (95-100) % ABG Base Excess (-2-2) mmol/L FiO2 Sodium (137-145) mmol/L Potassium (3.4-5.1) mmol/L Chloride (98-107) mmol/L Carbon Dioxide (22-32) mmol/L BUN (7-17) mg/dL Creatinine 0.78 (0.52-1.04) mg/dL Estimated GFR > 60.0 (>60) mL/min BUN/Creatinine Ratio (6-22) Glucose (70-100) mg/dL Lactate 0.7 (0.7-2.1) mmol/L Calcium (8.4-10.2) mg/dL Magnesium (1.6-2.3) mg/dL Total Bilirubin 1.3 (0.2-1.3) mg/dL Conjugated Bilirubin 0.0 (0.0-0.3) md/dL Unconjugated Bilirubin 1.1 (0.0-1.1) mg/dL AST 706 H (14-36) IU/L ALT 216 H (<35) IU/L Alkaline Phosphatase 38 (38-126) U/L Ammonia (9-30) umol/L Total Creatine Kinase 35101 H (30-135) U/L CK-MB (CK-2) 22.20 H (<2.37) ng/mL CK-MB (CK-2) Rel Index 0.1 L (1.5-5.0) % Troponin I (0.01-0.034) ng/mL Total Protein 6.3 (6.3-8.2) g/dL Albumin 3.5 (3.5-5.0) g/dL Globulin 2.8 (1.7-4.1) g/dL Albumin/Globulin Ratio 1.3 (1.0-2.8) Urine Color Urine Appearance Urine pH (4.5-8.0) Ur Specific [place] (1.000-1.035) Urine Protein (Negative) Urine Glucose (UA) (Negative) g/dL Urine Ketones (NEGATIVE) Urine Occult Blood (Negative) Urine Nitrate (Negative) Urine Bilirubin (NEGATIVE) Ur Bilirubin Confirm (Negative) Urine Urobilinogen (0.2) E.U./dL Ur Leukocyte Esterase (NEGATIVE) Urine RBC (0-5/HPF) Urine WBC (0-5/HPF) Urine Bacteria (None) Hyaline Casts (None) Urine Mucus (Negative) Ur Culture Indicated? Salicylates 1.0 (<20) mg/dL U Opiates 300ng/mL cut (Negative) Ur Oxycodone Screen (Negative) Urine Methadone Screen (Negative) Acetaminophen < 10 L (10-30) ug/mL Ur Barbiturates Screen (Negative) U Tricyclic Antidepress (Negative) Ur Phencyclidine Scrn (Negative) Ur Amphetamines Screen (Negative) U Methamphetamines Scrn (Negative) Ur MDMA Scrn (Ecstasy) (Negative) U Benzodiazepines Scrn (Negative) Urine Cocaine Screen (Negative) U Marijuana (THC) Screen (Negative) Ethyl Alcohol ( - 10) mg/dL COVID-19 PCR (Negative) Blood Type Antibody Screen 09/26/19 Range/Units 14:20 WBC (4.5-11.0) X10^3/uL RBC (4.0-5.2) X10^6/uL Hgb (12.0-16.0) g/dL Hct (36-46) % MCV (80-100) fL MCH (26-34) PG MCHC (30-36) % RDW (11.6-14.8) % Plt Count (150-400) X10^3/uL Neut % (Auto) (50-75) % Lymph % (Auto) (25-40) % [place] % (Auto) (3-14) % Eos % (Auto) (2-4) % Baso % (Auto) (0-2) % Neut # (Auto) (1407-8380) /uL Lymph # (Auto) (5198-2525) /uL Allen # (Auto) (0-900) /uL Eos # (Auto) (0-450) /uL Baso # (Auto) (0-100) /uL PT (10.1-12.7) SECONDS INR (0.9-1.3) APTT (26.4-36.2) SECONDS ABG pH (7.35-7.45) ABG pCO2 (35-45) mmHg ABG pO2 (80-100) mmHg ABG HCO3 (22-26) mmol/L ABG Total CO2 (21-31) mmol/L ABG O2 Saturation (95-100) % ABG Base Excess (-2-2) mmol/L FiO2 Sodium 149 H (137-145) mmol/L Potassium 3.6 (3.4-5.1) mmol/L Chloride 117 H (98-107) mmol/L Carbon Dioxide 22 (22-32) mmol/L BUN 48 H (7-17) mg/dL Creatinine 0.80 (0.52-1.04) mg/dL Estimated GFR > 60.0 (>60) mL/min BUN/Creatinine Ratio 60.0 H (6-22) Glucose 94 (70-100) mg/dL Lactate (0.7-2.1) mmol/L Calcium 8.4 (8.4-10.2) mg/dL Magnesium (1.6-2.3) mg/dL Total Bilirubin (0.2-1.3) mg/dL Conjugated Bilirubin (0.0-0.3) md/dL Unconjugated Bilirubin (0.0-1.1) mg/dL AST (14-36) IU/L ALT (<35) IU/L Alkaline Phosphatase (38-126) U/L Ammonia (9-30) umol/L Total Creatine Kinase (30-135) U/L CK-MB (CK-2) (<2.37) ng/mL CK-MB (CK-2) Rel Index (1.5-5.0) % Troponin I (0.01-0.034) ng/mL Total Protein (6.3-8.2) g/dL Albumin (3.5-5.0) g/dL Globulin (1.7-4.1) g/dL Albumin/Globulin Ratio (1.0-2.8) Urine Color Urine Appearance Urine pH (4.5-8.0) Ur Specific [place] (1.000-1.035) Urine Protein (Negative) Urine Glucose (UA) (Negative) g/dL Urine Ketones (NEGATIVE) Urine Occult Blood (Negative) Urine Nitrate (Negative) Urine Bilirubin (NEGATIVE) Ur Bilirubin Confirm (Negative) Urine Urobilinogen (0.2) E.U./dL Ur Leukocyte Esterase (NEGATIVE) Urine RBC (0-5/HPF) Urine WBC (0-5/HPF) Urine Bacteria (None) Hyaline Casts (None) Urine Mucus (Negative) Ur Culture Indicated? Salicylates (<20) mg/dL U Opiates 300ng/mL cut (Negative) Ur Oxycodone Screen (Negative) Urine Methadone Screen (Negative) Acetaminophen (10-30) ug/mL Ur Barbiturates Screen (Negative) U Tricyclic Antidepress (Negative) Ur Phencyclidine Scrn (Negative) Ur Amphetamines Screen (Negative) U Methamphetamines Scrn (Negative) Ur MDMA Scrn (Ecstasy) (Negative) U Benzodiazepines Scrn (Negative) Urine Cocaine Screen (Negative) U Marijuana (THC) Screen (Negative) Ethyl Alcohol ( - 10) mg/dL COVID-19 PCR (Negative) Blood Type Antibody Screen Point of Care Testing Glucose POC 103 ABG Data ABG results: The patient's ABGs on room air revealed a pH is 7.383 a pCO2 of 30.4 a PO2 of 84 and oxygen saturation of 96% a bicarb of 18.1 a total CO2 of 19 Attestation: I personally reviewed and interpreted this ABG as follows: ECG Data Attestation: I personally reviewed and interpreted this ECG as follows: Interpretation: 1155: The patient's EKG obtained at 11:5 2:31 a.m. reveals a sinus rhythm with what appears to be a short p.r. interval. The IN interval is 110 milliseconds. Ventricular rate is 91. QRS is normal duration at 84 milliseconds QTC is prolonged at 514 indicating the patient has a prolonged QT interval. [place] is normal. The patient has no acute diagnostic ST segment changes. T-wave is inverted in V1. The patient has nonspecific slight ST segment depressions in leads V3 through V6 and I. Discharge Plan Departure Patient Disposition: Admitted As Inpatient Clinical Impression: Alcohol dependence with withdrawal with complication, Alcohol abuse, Acute UTI, Acidosis, lactic, Abnormal liver function tests, Alcohol withdrawal delirium Rhabdomyolysis Qualifiers: Rhabdomyolysis type: traumatic Encounter type: initial encounter Qualified Code(s): T79.6XXA - Traumatic ischemia of muscle, initial encounter Discharge Date/Time: 09/26/19 15:40 Referrals: Javier Miles MD [Primary Care Provider] - Admit Date/Time: 09/26/19 15:09 Admit Provider: Osmin Andrade
--- NOTE | 2019-09-26 11:27 | DI.CT.S_ITS ---
PROCEDURE: CT HEAD/BRAIN WO CON INDICATIONS: multiple bruises, unwitnessed suspected fall, confused, alco TECHNIQUE: Noncontrast 4.5 mm thick angled axial sections acquired from the foramen magnum to the vertex, with coronal and sagittal reformats. For radiation dose reduction, the following was used: automated exposure control, adjustment of mA and/or kV according to patient size. COMPARISON: 07/23/18. FINDINGS: Image quality: Excellent. CSF spaces: Basal cisterns are patent. No extra-axial fluid collections. The ventricles are symmetric in size and shape. Brain: No intracranial bleeds or masses. Again noted is is greater than expected cerebral volume loss for age, with resultant ventricular and sulcal prominence. There are periventricular and deep white matter chronic small vessel ischemic changes. There is intracranial internal carotid artery atherosclerosis. Skull and face: Calvarium and visualized facial bones appear intact, without suspicious lesions. Sinuses: Visualized sinuses and mastoids are clear. IMPRESSION: 1. Greater than expected volume loss for patient age. 2. No evidence acute stroke, hemorrhage, or mass. Dictated by: Lamont Carmona M.D. on 09/26/2019 at 11:29 Approved by: Lamont Carmona M.D. on 09/26/2019 at 11:30
--- NOTE | 2019-09-26 11:27 | DI.RAD.S_ITS ---
PROCEDURE: XR CHEST 1V INDICATIONS: unresponsive, alcohol withdrawal, agitation TECHNIQUE: One view of the chest was acquired. COMPARISON: None. FINDINGS: Surgical changes and devices: None. Lungs and pleura: Lungs are clear. No pleural effusions or pneumothorax. Mediastinum: Mediastinal contours appear normal. Heart size is normal. Bones and chest wall: No suspicious bony lesions. Overlying soft tissues appear unremarkable. IMPRESSION: No evidence acute pulmonary process. Dictated by: Lamont Carmona M.D. on 09/26/2019 at 11:28 Approved by: Lamont Carmona M.D. on 09/26/2019 at 11:28
--- NOTE | 2019-09-26 11:29 | DI.CT.S_ITS ---
PROCEDURE: CT CERVICAL SPINE WO CON INDICATIONS: found on floor, multiple contusions and bruises TECHNIQUE: Noncontrast 3 mm thick sections acquired from the skull base to the T4 level. Sagittal and coronal reformats were then constructed. For radiation dose reduction, the following was used: automated exposure control, adjustment of mA and/or kV according to patient size. COMPARISON: 07/23/18. FINDINGS: Image quality: Patient motion artifact somewhat degrades image quality. Bones: No fractures or dislocations. Visualized superior ribs are intact. Again noted is diffuse cervical spondylitic change. Trace degenerative retrolisthesis of C5 on C6 and anterolisthesis of C3 on C4. Multilevel facet arthropathy. Right foraminal narrowing at C5-C6. Soft tissues: Prevertebral soft tissues are normal in thickness. No paravertebral hematomas. No apical pneumothoraces. IMPRESSION: 1. No evidence acute cervical fracture or dislocation. 2. Cervical spondylosis. Dictated by: Lamont Carmona M.D. on 09/26/2019 at 11:31 Approved by: Lamont Carmona M.D. on 09/26/2019 at 11:34
[2019-09-26] MEDS: LORazepam 2 MG/ML INJ (11:30)
[2019-09-26] MEDS: THIAMINE 200 MG/2 ML VIAL 100 MG IV (11:40)
[2019-09-26] MEDS: LORazepam 2 MG/ML INJ IV ×3 (11:40→23:34)
[2019-09-26] MEDS: SODIUM CHLORIDE 0.9% 1,000 ML 2000 ML IV (11:41)
[2019-09-26 11:43] LABS: Add Manual Diff / Slide Review NO; Basophils Absolute Auto 0 /uL (0-100); Basophils Percent Auto 0.1 % (0-2); Eosinophils Absolute Auto 0 /uL (0-450); Hematocrit 44.3 % (36-46); Hemoglobin 14.9 g/dL (12.0-16.0); Lymphocytes Absolute Auto 800 /uL (1100-4500); Lymphocytes Percent Auto 7.2 % (25-40); Mean Corpuscular HGB Conc 33.6 % (30-36); Mean Corpuscular Hemoglobin 33.2 PG (26-34); Mean Corpuscular Volume 98.8 fL (80-100); Monocytes Absolute Auto 1700 /uL (0-900); Monocytes Percent Auto 14.4 % (3-14); Neutrophils Absolute Auto 9000 /uL (1500-7000); Neutrophils Percent Auto 78.3 % (50-75); Platelet Count 87 X10^3/uL (150-400); Red Blood Cell Count 4.48 X10^6/uL (4.0-5.2); Red Cell Distribution Width 13.3 % (11.6-14.8); White Blood Cell Count 11.5 X10^3/uL (4.5-11.0)
[2019-09-26] MEDS: levETIRAcetam 500 MG in SODIUM CHLORIDE 0.9% 100 ML 420 ML IV (11:46)
[2019-09-26 11:49] LABS: Alanine Aminotransferase 316 IU/L (<35); Albumin 5.3 g/dL (3.5-5.0); Albumin Globulin Ratio 1.3 (1.0-2.8); Alkaline Phosphatase 75 U/L (38-126); BUN Creatinine Ratio 59.2 (6-22); Bilirubin Total 2.4 mg/dL (0.2-1.3); Blood Urea Nitrogen 61 mg/dL (7-17); Calcium 11.1 mg/dL (8.4-10.2); Carbon Dioxide 21 mmol/L (22-32); Chloride 104 mmol/L (98-107); Ethanol (ETOH) < 10 mg/dL; Globulin 4.1 g/dL (1.7-4.1); Glucose 115 mg/dL (70-100); Potassium 3.3 mmol/L (3.4-5.1); Sodium 147 mmol/L (137-145); Total Protein 9.4 g/dL (6.3-8.2)
[2019-09-26 11:50] LABS: Appearance Urine UA SL CLOUDY; Bilirubin Urine UA 1+ (NEGATIVE); Color Urine UA YELLOW; Glucose Urine UA NEGATIVE (Negative); Ketones Urine UA 1+ (NEGATIVE); Leukocyte Esterase Urine UA 1+ (NEGATIVE); Nitrite Urine UA POSITIVE (Negative); Occult Blood Urine UA 3+ (Negative); Protein Urine UA 3+ (Negative); Urobilinogen Urine UA 0.2 E.U./dL (0.2)
[2019-09-26] MEDS: diphenhydrAMINE 50 MG/ML VIAL 25 MG IV (11:52)
[2019-09-26 11:55] LABS: HEMOLYSIS < 15 (0-50)
[2019-09-26 11:56] LABS: Aspartate Aminotransferase 1116 IU/L (14-36)
[2019-09-26 11:57] LABS: UR Morphine/Opiate cutoff 300 Negative (Negative); Ur Creatinine Normal (Normal); Ur Specific Gravity Normal (Normal); Urine Amphetamines Negative (Negative); Urine Barbiturates Negative (Negative); Urine Benzodiazepines Negative (Negative); Urine Cocaine Negative (Negative); Urine MDMA Negative (Negative); Urine Methadone Negative (Negative); Urine Methamphetamines Negative (Negative); Urine Oxycodone Negative (Negative); Urine Phencyclidine Negative (Negative); Urine Tetrahydrocannabinol Negative (Negative); Urine Tricyclic Antidepressant Negative (Negative); Urine pH Normal (Normal)
[2019-09-26 11:58] LABS: pH Urine UA 6.5 (4.5-8.0)
[2019-09-26 12:00] LABS: Troponin I 0.014 ng/mL (0.01-0.034)
[2019-09-26 12:04] LABS: Prothrombin Time 11.2 SECONDS (10.1-12.7)
[2019-09-26 12:07] LABS: PTT Partial Thromboplastin Tim 26 SECONDS (26.4-36.2)
[2019-09-26 12:09] LABS: Ictotest Urine Negative (Negative); RBC Urine 1-5/HPF (0-5/HPF); WBC Urine 30-100/HPF (0-5/HPF)
[2019-09-26 12:10] LABS: Bacteria Urine Many (>30); Culture Indicated Urine Specimen Cultured; Hyaline Casts Urine 0-1/LPF; Mucus Urine 2+ (Negative)
[2019-09-26 12:13] LABS: Lactate (Lactic Acid) 5.4 mmol/L (0.7-2.1)
[2019-09-26 12:29] LABS: pH ABG 7.38 (7.35-7.45)
[2019-09-26 12:30] LABS: HCO3 ABG 18 mmol/L (22-26); PCO2 ABG 30.4 mmHg (35-45); PO2 ABG 84 mmHg (80-100); TCO2 ABG 19 mmol/L (21-31)
[2019-09-26 12:31] LABS: Fractionated Inspired Oxygen 21; Oxygen Saturation ABG 96 % (95-100)
[2019-09-26 12:33] LABS: Creatine Kinase 50155 U/L (30-135)
[2019-09-26 12:46] LABS: CKMB % Relative Index 0.1 % (1.5-5.0)
[2019-09-26] MEDS: CEFEPIME 2 GM in SODIUM CHLORIDE 0.9% 100 ML 200 ML IV (12:53)
[2019-09-26 13:03] LABS: Magnesium 2.5 mg/dL (1.6-2.3)
[2019-09-26 13:37] LABS: Ammonia (NH3) 11 umol/L (9-30)
[2019-09-26 13:42] LABS: Reflexed Lactate in 2 Hours Y
[2019-09-26] MEDS: SODIUM CHLORIDE 0.9% 1,000 ML 150 ML IV (13:44)
[2019-09-26 14:19] LABS: Lactate 2HR (Lactic Acid Rflx) 0.7 mmol/L (0.7-2.1)
[2019-09-26 14:40] LABS: COVID19 -Nasal RAPID Negative (Negative)
[2019-09-26 14:46] LABS: Creatine Kinase 30739 U/L (30-135)
[2019-09-26 14:47] LABS: Estimated Glomerular Filt Rate > 60.0 mL/min (>60)
[2019-09-26 14:54] LABS: CKMB % Relative Index 0.1 % (1.5-5.0)
[2019-09-26 15:02] LABS: Acetaminophen < 10 ug/mL (10-30); Alanine Aminotransferase 216 IU/L (<35); Albumin 3.5 g/dL (3.5-5.0); Albumin Globulin Ratio 1.3 (1.0-2.8); Alkaline Phosphatase 38 U/L (38-126); Aspartate Aminotransferase 706 IU/L (14-36); Bilirubin Total 1.3 mg/dL (0.2-1.3); Bilirubin Unconjugated 1.1 mg/dL (0.0-1.1); Globulin 2.8 g/dL (1.7-4.1); HEMOLYSIS < 15 (0-50); Total Protein 6.3 g/dL (6.3-8.2)
[2019-09-26 15:46] LABS: Blood Urea Nitrogen 48 mg/dL (7-17); Calcium 8.4 mg/dL (8.4-10.2); Carbon Dioxide 22 mmol/L (22-32); Chloride 117 mmol/L (98-107); Estimated Glomerular Filt Rate > 60.0 mL/min (>60); Glucose 94 mg/dL (70-100); HEMOLYSIS < 15 (0-50); Potassium 3.6 mmol/L (3.4-5.1); Sodium 149 mmol/L (137-145)
--- NOTE | 2019-09-26 15:49 | P.HP_ITS ---
History of Present Illness History of Present Illness Date Patient Seen: 09/26/19 Time Patient Seen: 15:49 Chief complaint: Detox Narrative: Markell Crow is a 59-year-old female with past medical history of alcohol abuse (prior documentation of liters of hard liquor daily, hx of DTs per chart review) who was found on the floor of her room naked by her father this morning. History was obtained via chart review as well as with discussion with the patient's father. During the interview, patient kept referring to various events throughout the year and was confused. She lives in the same house as her father, but has her own room. Her father is elderly and is unable to do much himself. He reports that Gracia has been an alcoholic for very long time. He had last seen her 2 days ago, but she frequently goes into her room and watches TV and does not come out for long periods of time. He began to get worried this morning when he had not heard anything over the prior 2 days and forced himself into her room this morning which is when he found her naked and laying on the floor with her clothes scattered about. He called his son to help, who found about 150 bottles of vodka underneath her bed after cleaning her room. He did not think that she had intentionally tried to stop drinking, but rather thinks that she may have run out and been unable to obtain more. In the emergency room, patient was initially hypertensive and tachycardic. Other vital signs were unremarkable. She was agitated and confused. She was given 2 mg of Ativan initially which partially helped to calm her down. After this 2 mg she began to have a possible seizure-like movements with rhythmic motion her jaw. She was given additional 2 mg of Ativan and Benadryl IV. [facility] evaluation showed despite concentrated labs a platelet count of 87, but otherwise unremarkable CBC. Her sodium was 147, potassium 3.3, creatinine 1.03 from a baseline of 0.5, glucose 115. Lactic acid initially was 5.4, and CK was 50,000. Her AST was markedly elevated at 1116, ALT of 316. Alcohol level is negative. Salicylates level is 1, and Tylenol level is negative. UA was grossly positive with 30-100 white blood cells, nitrites, and leuk esterase. Patient was given 2 L of normal saline bolus and put on a normal saline infusion. Her creatinine did down trend to 0.78, lactic acid improved to normal at 0.7. After IV fluids other labs began to improve as well with creat inine down to 0.78, CK down to 30,000, and AST down to 707. EKG showed sinus rhythm with a prolonged QTC at 514, and a short as needed interval. But no evidence of ischemia. Her chest x-ray is negative, head CT showed greater than expected volume loss, but no acute abnormalities. Neck CT was also negative. Upon arrival to the medicine floor, patient had a brief episode again of rhythmic contractions of her RUE as well as unresponsiveness, consistent with seizure activity. This stopped after a few seconds, but the patient was tremulous and had tongue fasciculation she was given additional Ativan which made her calm, sleepy, but arousable. Phenobarb is ordered if symptoms recur. She is admitted to the ICU with alcohol withdrawal with possible seizure and possible delirium tremens, as well as rhabdomyolysis, and hypernatremia. Patient History Medical History (Updated 09/26/19 @ 16:31 by Osmin Andrade DO) Alcohol abuse (Acute 06/05/15) Alcohol withdrawal delirium (Acute) Family & Social History Safety & Behavioral: Feels Safe in Current Unwilling to Answer Environment Been Physically Hurt or Unwilling to Answer Threatened By a Person Tobacco & Substance use: Smoking Status Never smoker alcohol intake frequency 0-2 drinks per day Substance Use Type does not use Meds Home Medications and Allergies Home Medications Medication Instructions Recorded Confirmed Type No Known Home Medications 12/12/17 11/06/18 History Allergies Allergy/AdvReac Type Severity Reaction Status Date / Time No Known Allergies Allergy Verified 11/06/18 10:51 Review of Systems Review of Systems ROS: Yes unobtainable due to mental status Exam Vital Signs (past 8 hours): - 09/26/19 11:28 09/26/19 11:35 09/26/19 11:50 Temperature 99.1 F Pulse Rate 122 H 96 H 92 H Respiratory Rate 22 18 19 Blood Pressure 157/84 H 151/70 H Pulse Oximetry 96 99 98 09/26/19 12:00 09/26/19 12:22 09/26/19 12:30 Temperature Pulse Rate 90 189 H 85 Respiratory Rate 20 20 32 H Blood Pressure 116/74 Pulse Oximetry 98 88 L 100 09/26/19 12:34 09/26/19 12:45 09/26/19 13:00 Temperature Pulse Rate 87 80 84 Respiratory Rate 24 18 19 Blood Pressure 170/93 H 143/86 H 147/89 H Pulse Oximetry 100 99 99 09/26/19 13:15 09/26/19 13:30 09/26/19 13:45 Temperature Pulse Rate 85 83 82 Respiratory Rate 17 15 12 Blood Pressure 125/76 121/72 134/75 Pulse Oximetry 98 99 100 09/26/19 14:00 09/26/19 14:15 09/26/19 14:36 Temperature Pulse Rate 82 80 95 H Respiratory Rate 15 14 21 Blood Pressure 125/74 125/72 172/94 H Pulse Oximetry 100 99 100 09/26/19 14:45 Temperature Pulse Rate 95 H Respiratory Rate 23 Blood Pressure 155/82 H Pulse Oximetry 99 Oxygen Delivery Method Room Air Narrative Exam Narrative: GENERAL APPEARANCE: Chronically ill-appearing, disheveled, female. Confused. SKIN: Inspection of the skin reveals no rashes, ulcerations or petechiae. There are scattered ecchymoses, largest over her right eye, there are some small scratch oakley on her bilateral lower extremities. HEENT: Normocephalic, extraocular muscles are intact, crusting over her lips, her oral mucosa is very dry. There is no evidence tongue bites. There is mild erythema over her neck, which the patient is scratching frequently. NECK: Supple and symmetric. There was no thyroid enlargement, and no tenderness, or masses were felt. CHEST: Normal AP diameter and normal contour without any kyphoscoliosis. LUNGS: Auscultation of the lungs revealed no wheezes, rhonchi, or rales. CARDIOVASCULAR: There was a regular rate and rhythm without any murmurs, gallops, rubs. Peripheral pulses were 2+ and symmetric. ABDOMEN: Soft and nontender with normal bowel sounds. No ascites was noted. MUSCULOSKELETAL: There was no tenderness or effusions noted. Muscle strength was normal, slight rigidity, but able to relax on command. EXTREMITIES: No cyanosis, clubbing or edema. muscle wasting in her lower extremities. NEUROLOGIC: Alert and oriented to name and hospital only. Tremulousness and + tongue fasciculations. Gait was not assessed. No focal deficits to sensation, or with weakness. Objective ECG Impression: Sinus rhythm, short TX interval, prolonged QTC. No ST or T-wave abnormalities. Imaging Chest x-ray: My impression: No acute cardiopulmonary process. Radiologist's impression: IMPRESSION: No evidence acute pulmonary process. CT scan - head: Radiologist's impression: CSF spaces: Basal cisterns are patent. No extra-axial fluid collections. The ventricles are symmetric in size and shape. Brain: No intracranial bleeds or masses. Again noted is is greater than expected cerebral volume loss for age, with resultant ventricular and sulcal prominence. There are periventricular and deep white matter chronic small vessel ischemic changes. There is intracranial internal carotid artery atherosclerosis. Skull and face: Calvarium and visualized facial bones appear intact, without suspicious lesions. Sinuses: Visualized sinuses and mastoids are clear. IMPRESSION: 1. Greater than expected volume loss for patient age. 2. No evidence acute stroke, hemorrhage, or mass. CT- C spine: Radiologist's impression: Image quality: Patient motion artifact somewhat degrades image quality. Bones: No fractures or dislocations. Visualized superior ribs are intact. Again noted is diffuse cervical spondylitic change. Trace degenerative retrolisthesis of C5 on C6 and anterolisthesis of C3 on C4. Multilevel facet arthropathy. Right foraminal narrowing at C5-C6. Soft tissues: Prevertebral soft tissues are normal in thickness. No paravertebral hematomas. No apical pneumothoraces. IMPRESSION: 1. No evidence acute cervical fracture or dislocati Labs Result Diagrams: 09/26/19 11:05 09/26/19 14:20 Labs: Laboratory Results - last 24 hr 09/26/19 09/26/19 09/26/19 11:05 11:05 11:05 WBC 11.5 H RBC 4.48 Hgb 14.9 Hct 44.3 MCV 98.8 MCH 33.2 MCHC 33.6 RDW 13.3 Plt Count 87 L Neut % (Auto) 78.3 H Lymph % (Auto) 7.2 L [place] % (Auto) 14.4 H Eos % (Auto) 0.0 L Baso % (Auto) 0.1 Neut # (Auto) 9000 H Lymph # (Auto) 800 L [place] # (Auto) 1700 H Eos # (Auto) 0 Baso # (Auto) 0 PT 11.2 INR 1.0 APTT 26 L ABG pH ABG pCO2 ABG pO2 ABG HCO3 ABG Total CO2 ABG O2 Saturation ABG Base Excess FiO2 Sodium 147 H Potassium 3.3 L Chloride 104 Carbon Dioxide 21 L BUN 61 H Creatinine 1.03 Estimated GFR 55.0 L BUN/Creatinine Ratio 59.2 H Glucose 115 H Lactate Calcium 11.1 H Magnesium Total Bilirubin 2.4 H Conjugated Bilirubin Unconjugated Bilirubin AST 1116 H ALT 316 H Alkaline Phosphatase 75 Ammonia Total Creatine Kinase 49558 H CK-MB (CK-2) 32.90 H CK-MB (CK-2) Rel Index 0.1 L Troponin I 0.014 Total Protein 9.4 H Albumin 5.3 H Globulin 4.1 Albumin/Globulin Ratio 1.3 Urine Color Urine Appearance Urine pH Ur Specific [place] Urine Protein Urine Glucose (UA) Urine Ketones Urine Occult Blood Urine Nitrate Urine Bilirubin Ur Bilirubin Confirm Urine Urobilinogen Ur Leukocyte Esterase Urine RBC Urine WBC Urine Bacteria Hyaline Casts Urine Mucus Ur Culture Indicated? Salicylates U Opiates 300ng/mL cut Ur Oxycodone Screen Urine Methadone Screen Acetaminophen Ur Barbiturates Screen U Tricyclic Antidepress Ur Phencyclidine Scrn Ur Amphetamines Screen U Methamphetamines Scrn Ur MDMA Scrn (Ecstasy) U Benzodiazepines Scrn Urine Cocaine Screen U Marijuana (THC) Screen Ethyl Alcohol < 10 COVID-19 PCR Blood Type Antibody Screen 09/26/19 09/26/19 09/26/19 11:05 11:05 11:35 WBC RBC Hgb Hct MCV MCH MCHC RDW Plt Count Neut % (Auto) Lymph % (Auto) [place] % (Auto) Eos % (Auto) Baso % (Auto) Neut # (Auto) Lymph # (Auto) [place] # (Auto) Eos # (Auto) Baso # (Auto) PT INR APTT ABG pH ABG pCO2 ABG pO2 ABG HCO3 ABG Total CO2 ABG O2 Saturation ABG Base Excess FiO2 Sodium Potassium Chloride Carbon Dioxide BUN Creatinine Estimated GFR BUN/Creatinine Ratio Glucose Lactate 5.4 H* Calcium Magnesium 2.5 H Total Bilirubin Conjugated Bilirubin Unconjugated Bilirubin AST ALT Alkaline Phosphatase Ammonia Total Creatine Kinase CK-MB (CK-2) CK-MB (CK-2) Rel Index Troponin I Total Protein Albumin Globulin Albumin/Globulin Ratio Urine Color Urine Appearance Urine pH Ur Specific [place] Urine Protein Urine Glucose (UA) Urine Ketones Urine Occult Blood Urine Nitrate Urine Bilirubin Ur Bilirubin Confirm Urine Urobilinogen Ur Leukocyte Esterase Urine RBC Urine WBC Urine Bacteria Hyaline Casts Urine Mucus Ur Culture Indicated? Salicylates U Opiates 300ng/mL cut Ur Oxycodone Screen Urine Methadone Screen Acetaminophen Ur Barbiturates Screen U Tricyclic Antidepress Ur Phencyclidine Scrn Ur Amphetamines Screen U Methamphetamines Scrn Ur MDMA Scrn (Ecstasy) U Benzodiazepines Scrn Urine Cocaine Screen U Marijuana (THC) Screen Ethyl Alcohol Cancelled COVID-19 PCR Blood Type Antibody Screen 09/26/19 09/26/19 09/26/19 11:35 11:35 11:35 WBC RBC Hgb Hct MCV MCH MCHC RDW Plt Count Neut % (Auto) Lymph % (Auto) [place] % (Auto) Eos % (Auto) Baso % (Auto) Neut # (Auto) Lymph # (Auto) [place] # (Auto) Eos # (Auto) Baso # (Auto) PT INR APTT ABG pH ABG pCO2 ABG pO2 ABG HCO3 ABG Total CO2 ABG O2 Saturation ABG Base Excess FiO2 Sodium Potassium Chloride Carbon Dioxide BUN Creatinine Estimated GFR BUN/Creatinine Ratio Glucose Lactate Calcium Magnesium Total Bilirubin Conjugated Bilirubin Unconjugated Bilirubin AST ALT Alkaline Phosphatase Ammonia Total Creatine Kinase CK-MB (CK-2) CK-MB (CK-2) Rel Index Troponin I Total Protein Albumin Globulin Albumin/Globulin Ratio Urine Color Yellow Urine Appearance Sl cloudy Urine pH 6.5 Ur Specific [place] 1.020 Urine Protein 3+ H Urine Glucose (UA) Negative Urine Ketones 1+ H Urine Occult Blood 3+ H Urine Nitrate Positive H Urine Bilirubin 1+ H Ur Bilirubin Confirm Negative Urine Urobilinogen 0.2 Ur Leukocyte Esterase 1+ H Urine RBC 1-5/hpf Urine WBC 30-100/hpf H Urine Bacteria Many (>30) H Hyaline Casts 0-1/lpf Urine Mucus 2+ H Ur Culture Indicated? Specimen cultured Salicylates U Opiates 300ng/mL cut Negative Ur Oxycodone Screen Negative Urine Methadone Screen Negative Acetaminophen Ur Barbiturates Screen Negative U Tricyclic Antidepress Negative Ur Phencyclidine Scrn Negative Ur Amphetamines Screen Negative U Methamphetamines Scrn Negative Ur MDMA Scrn (Ecstasy) Negative U Benzodiazepines Scrn Negative Urine Cocaine Screen Negative U Marijuana (THC) Screen Negative Ethyl Alcohol COVID-19 PCR Blood Type A Positive Antibody Screen Negative 09/26/19 09/26/19 09/26/19 11:45 13:20 13:35 WBC RBC Hgb Hct MCV MCH MCHC RDW Plt Count Neut % (Auto) Lymph % (Auto) [place] % (Auto) Eos % (Auto) Baso % (Auto) Neut # (Auto) Lymph # (Auto) [place] # (Auto) Eos # (Auto) Baso # (Auto) PT INR APTT ABG pH 7.38 ABG pCO2 30.4 L ABG pO2 84 ABG HCO3 18 L ABG Total CO2 19 L ABG O2 Saturation 96 ABG Base Excess -7.0 L FiO2 21 Sodium Potassium Chloride Carbon Dioxide BUN Creatinine Estimated GFR BUN/Creatinine Ratio Glucose Lactate Calcium Magnesium Total Bilirubin Conjugated Bilirubin Unconjugated Bilirubin AST ALT Alkaline Phosphatase Ammonia 11 Total Creatine Kinase CK-MB (CK-2) CK-MB (CK-2) Rel Index Troponin I Total Protein Albumin Globulin Albumin/Globulin Ratio Urine Color Urine Appearance Urine pH Ur Specific [place] Urine Protein Urine Glucose (UA) Urine Ketones Urine Occult Blood Urine Nitrate Urine Bilirubin Ur Bilirubin Confirm Urine Urobilinogen Ur Leukocyte Esterase Urine RBC Urine WBC Urine Bacteria Hyaline Casts Urine Mucus Ur Culture Indicated? Salicylates U Opiates 300ng/mL cut Ur Oxycodone Screen Urine Methadone Screen Acetaminophen Ur Barbiturates Screen U Tricyclic Antidepress Ur Phencyclidine Scrn Ur Amphetamines Screen U Methamphetamines Scrn Ur MDMA Scrn (Ecstasy) U Benzodiazepines Scrn Urine Cocaine Screen U Marijuana (THC) Screen Ethyl Alcohol COVID-19 PCR Negative Blood Type Antibody Screen 09/26/19 09/26/19 09/26/19 14:00 14:20 14:20 WBC RBC Hgb Hct MCV MCH MCHC RDW Plt Count Neut % (Auto) Lymph % (Auto) [place] % (Auto) Eos % (Auto) Baso % (Auto) Neut # (Auto) Lymph # (Auto) [place] # (Auto) Eos # (Auto) Baso # (Auto) PT INR APTT ABG pH ABG pCO2 ABG pO2 ABG HCO3 ABG Total CO2 ABG O2 Saturation ABG Base Excess FiO2 Sodium Potassium Chloride Carbon Dioxide BUN Creatinine 0.78 Estimated GFR > 60.0 BUN/Creatinine Ratio Glucose Lactate 0.7 Calcium Magnesium Total Bilirubin 1.3 Conjugated Bilirubin 0.0 Unconjugated Bilirubin 1.1 AST 706 H ALT 216 H Alkaline Phosphatase 38 Ammonia Total Creatine Kinase 48434 H CK-MB (CK-2) 22.20 H CK-MB (CK-2) Rel Index 0.1 L Troponin I Total Protein 6.3 Albumin 3.5 Globulin 2.8 Albumin/Globulin Ratio 1.3 Urine Color Urine Appearance Urine pH Ur Specific [place] Urine Protein Urine Glucose (UA) Urine Ketones Urine Occult Blood Urine Nitrate Urine Bilirubin Ur Bilirubin Confirm Urine Urobilinogen Ur Leukocyte Esterase Urine RBC Urine WBC Urine Bacteria Hyaline Casts Urine Mucus Ur Culture Indicated? Salicylates 1.0 U Opiates 300ng/mL cut Ur Oxycodone Screen Urine Methadone Screen Acetaminophen < 10 L Ur Barbiturates Screen U Tricyclic Antidepress Ur Phencyclidine Scrn Ur Amphetamines Screen U Methamphetamines Scrn Ur MDMA Scrn (Ecstasy) U Benzodiazepines Scrn Urine Cocaine Screen U Marijuana (THC) Screen Ethyl Alcohol COVID-19 PCR Blood Type Antibody Screen Assessment & Plan Assessment & Plan narrative: Markell Crow is a 59-year-old female with past medical history of alcohol abuse (prior documentation of liters of hard liquor daily, hx of DTs per chart review) who was found on the floor of her room naked by her father this morning. She is admitted to the ICU for likely alcohol withdrawal seizure with possible delirium tremens, hypernatremia, acute cystitis, rhabdomyolysis, and severely elevated liver enzymes. 1. Alcohol withdrawal seizure with possible delirium tremens, acute, present on admission -patient reportedly drinks over 1 L of hard liquor daily, prefers vodka. Patient was found with 150 bottles of vodka underneath her bed. She lives at home with her father who had not heard her move around for the previous 2 days, and decided to check on her which is when he found her on the floor. He does not think she was intentionally trying to stop drinking, but rather ran out of alcohol and was unable to obtain more. -patient's alcohol level on admission was negative. During previous ER visit she has been coherent with an alcohol level of greater than 400. -differential includes primary seizure, but this seems unlikely given presenting history. Further differential includes toxic metabolic enephalopathy (secondary to several possible factors including sepsis), acute hepatitis, or could be multifactorial secondary to a combination of all of these. Hepatic encephalopathy is deemed less likely at this time given ammonia of 11 on admission, however this does not completely rule out this is an etiology. -patient reportedly with a history of delirium tremens, but no known seizures. -patient currently with disorientation and confusion, unclear chronicity given history by her father. 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 -continue CIWA protocol with as needed Ativan and phenobarb. Seizure precautions. Requires ICU level of care at this time as she has had at least 2 seizures since arrival to the emergency room. -elevated lactate of 5.4 improved to 0.7 after fluid hydration may be indicative of seizure activity as well. -have ordered dietitian consultation -monitor end tidal CO2 given need for multiple doses of medications and possible seizure activity. 2. Hypernatremia, acute, present on admission -likely secondary to severe dehydration as evidence by concentrated labs and rhabdomyolysis. -patient's initial sodium of 147 increased to 149 after patient was given normal saline boluses in the emergency room. Have stopped normal saline, and switch to D5W at a rate of 150 at this time. -continue to follow BMP. 3. Rhabdomyolysis, acute, present on admission -admission CK over 50,000, improved after initial fluid resuscitation to 30,000 -continue IV fluids as noted above under hypernatremia -patient had mild TONY given that her baseline creatinine appears to be 0.5, on admission it was 1.0 and has already improved to 0.8. -likely nontraumatic, could be related to possible seizure, or severe dehyd ration given presenting history. 4. Acute kidney injury, present on admission, resolved -as noted above baseline creatinine of 0.5, admission creatinine was 1.0 and has improved to 0.8 after fluid resuscitation. -will continue IV fluids as noted above -abdominal ultrasound ordered as noted below. 5. Acute cystitis, present on admission -UA grossly positive on admission with 30-100 white blood cells, positive nitrates, and 1+ leuk esterase. Specimen was sent for culture. -patient was given cefepime in the emergency room. Will continue ceftriaxone 1 g every 24 hours starting this evening. -will adjust based on cultures -no other evidence of sepsis at this time given known alcoholism, but this is in the differential. She is not currently febrile. 6. Alcoholic hepatitis, acute, present on admission -severely elevated liver enzymes with an AST of 1116 on admission, ALT of 316. Both of these improved with fluid hydration to 707, and 216 respectively. Likely further elevation of AST in the setting of rhabdomyolysis as well. -initial bilirubin was 1.3, coags are currently pending. However do not expect to be significantly elevated, although will calculate a discriminant function a nd see if steroids are needed. -have ordered a complete abdominal ultrasound to evaluate her liver as well as spleen, and kidneys given TONY. -continue to follow liver enzymes -tylenol level negative. Salicylate level 1.0 (negative). urine drug screen unremarkable. 7. Thrombocytopenia, unknown chronicity, present on admission -likely secondary to chronic alcoholism, but cannot rule out sepsis as noted below given acute cystitis. Suspect that her platelet count of 78 is relatively increased given her severe dehydration upon admission. -continue to follow platelet count 8. Rule out sepsis -patient has acute cystitis, and multiple other reasons to have abnormal lab abnormalities, but this does not preclude sepsis at this time. -continue to monitor for fever, follow-up abdominal ultrasound, and urine cultures -patient was given fluid resuscitation, and antibiotics with cefepime upon arrival to the emergency room. Will continue ceftriaxone for acute cystitis as noted above. -severely elevated lactate of 5.4 on admission has improved very quickly to 0.7 after fluid resuscitation. -COVID-19 testing was negative in the emergency room. Chest x-ray was unremarkable. -blood cultures x2 were drawn in the ER. I spent 35 minutes providing critical care management this patient. This exclu sylvia time spent in performing separately billed procedures. Code: Full, unable to discuss directly with patient at this time. Father is a listed emergency contact. Dispo: Admit to the ICU DVT: Hold given thrombocytopenia
[2019-09-26] MEDS: ONDANSETRON 4 MG/2 ML INJ IV (16:42)
[2019-09-26] MEDS: DEXTROSE 5% WATER 1,000 ML 150 ML IV (16:42)
[2019-09-26] MEDS: LORazepam 2 MG/ML INJ 4 MG (16:42)
[2019-09-26 17:12] LABS: PTT Partial Thromboplastin Tim 24 SECONDS (26.4-36.2)
--- NOTE | 2019-09-26 18:17 | PC.NURSE ---
Addendum entered by Judy Wick R.N. 09/27/19 00:59: 0100 Recheck of glucose is 127, much improved from the 80 at 0000, will continue to monitor. Addendum entered by Judy Wick R.N. 09/27/19 00:21: 0000 Pt awake and able to have conversation, swallow study completed and pt passed. Helped pt to take ordered Librium (which she chewed then swallowed with water). FSBG measured at 80, Provider notified, quickly administered honey, then offered pt link crackers or chocolate pudding, assisted pt in finishing the pudding with sips of water (pt states that she loves ice water). Pt more comfortable drinking water from a cup with a sip lid than from a straw. Able to swallow with no difficulty, pt expresses her thankfulness for care and would like to be able to stop tremors. Administered 2 mg Ativan for CIWA score of 15. Head of bed elevated to 30 degrees per pt request. Fruit ordered with breakfast per request, pt made comfortable, no further needs at this time, bed low and locked, call light within reach, will continue to monitor. Original Note: Evening shift note: Pt arrived to unit at 1552 via gurney from ED, pt lethargic upon arrival, rouses to voice but unable to respond to questions at this time. Pt was moved to bed via slide board, connected to monitoring equipment and Dr Andrade was notified pt had arrived. Provider at bedside, pt able to rouse and talk to Dr. Andrade, able to provide information as to where she was, but not what day or time. Pupils showed sluggish reactions, pt was able to track my finger with both eyes. Pt continued to be tremulous and agitated, provider left room to place orders and pt began to have seizure activity (at 1610) which lasted approximately 75 seconds[address] By the time Dr Andrade arrived back in the room, the pt had already reach the postictal stage of the seizure like activity. Pt no longer able to track with eyes or make sensical responses. Verbal order given to administer 4mg Ativan, and provider to place other new orders. Ativan administered per order, D5% @ 150mL infusing, settled pt in room and allowed pt to sleep at this time. RT at bedside, will place pt on Tidal volume monitoring due to sedation from Ativan and other medications used to control the alcohol withdrawal symptoms, pt is relaxed and resting at this time, seizure pads are in place, bed low and locked, high visible bed is needed for monitoring, will continue to monitor.
[2019-09-26] MEDS: CEFTRIAXONE 1 GM/50 ML FROZ.PIGGY IV (20:00)
[2019-09-26] MEDS: THIAMINE 500 MG in SODIUM CHLORIDE 0.9% 50 ML 220 ML IV (21:59)
[2019-09-26 22:23] LABS: BUN Creatinine Ratio 49.2 (6-22); Blood Urea Nitrogen 31 mg/dL (7-17); Calcium 8.2 mg/dL (8.4-10.2); Carbon Dioxide 26 mmol/L (22-32); Chloride 113 mmol/L (98-107); Estimated Glomerular Filt Rate > 60.0 mL/min (>60); Glucose 139 mg/dL (70-100); HEMOLYSIS < 15 (0-50); Potassium 2.8 mmol/L (3.4-5.1); Sodium 145 mmol/L (137-145)
[2019-09-26] MEDS: SODIUM CHLORIDE 0.45% 1,000 ML 150 ML IV (22:56)
[2019-09-26] MEDS: POTASSIUM CHLORIDE 80 MEQ in SODIUM CHLORIDE 0.9% 1,000 ML 130 ML IV (23:20)
[2019-09-26] MEDS: chlordiazePOXIDE 25 MG CAPSULE 50 MG PO (23:34)
[2019-09-27] VITALS (56 sets, daily range): BP systolic 101–130; BP diastolic 62–84; PULSE 72–175; RESP 14–42; TEMP 36.6–37.1; O2SAT 77–100
[2019-09-27] MEDS: LORazepam 2 MG/ML INJ IV ×2 (03:15→05:48)
[2019-09-27 04:53] LABS: Add Manual Diff / Slide Review NO; Basophils Absolute Auto 0 /uL (0-100); Basophils Percent Auto 0.2 % (0-2); Eosinophils Absolute Auto 0 /uL (0-450); Eosinophils Percent Auto 0.8 % (2-4); Hemoglobin 11.3 g/dL (12.0-16.0); Lymphocytes Absolute Auto 800 /uL (1100-4500); Lymphocytes Percent Auto 15.2 % (25-40); Mean Corpuscular HGB Conc 33.4 % (30-36); Mean Corpuscular Hemoglobin 32.9 PG (26-34); Mean Corpuscular Volume 98.6 fL (80-100); Monocytes Absolute Auto 900 /uL (0-900); Monocytes Percent Auto 16.8 % (3-14); Neutrophils Absolute Auto 3500 /uL (1500-7000); Platelet Count 69 X10^3/uL (150-400); Red Blood Cell Count 3.45 X10^6/uL (4.0-5.2); Red Cell Distribution Width 13.3 % (11.6-14.8); White Blood Cell Count 5.2 X10^3/uL (4.5-11.0)
[2019-09-27 05:01] LABS: Alanine Aminotransferase 186 IU/L (<35); Albumin 3.2 g/dL (3.5-5.0); Albumin Globulin Ratio 1.2 (1.0-2.8); Alkaline Phosphatase 34 U/L (38-126); Aspartate Aminotransferase 468 IU/L (14-36); BUN Creatinine Ratio 39.3 (6-22); Bilirubin Total 1.2 mg/dL (0.2-1.3); Blood Urea Nitrogen 22 mg/dL (7-17); Calcium 8.1 mg/dL (8.4-10.2); Carbon Dioxide 26 mmol/L (22-32); Chloride 117 mmol/L (98-107); Estimated Glomerular Filt Rate > 60.0 mL/min (>60); Globulin 2.7 g/dL (1.7-4.1); Glucose 87 mg/dL (70-100); HEMOLYSIS 31 (0-50); Magnesium 1.9 mg/dL (1.6-2.3); Phosphorous 2.6 mg/dL (2.5-4.5); Potassium 3.8 mmol/L (3.4-5.1); Sodium 144 mmol/L (137-145); Total Protein 5.9 g/dL (6.3-8.2)
[2019-09-27 05:44] LABS: TSH w/ Reflex to FT4 1.93 uIU/mL (0.47-4.68)
[2019-09-27] MEDS: SODIUM CHLORIDE 0.45% 1,000 ML 150 ML IV (05:44)
[2019-09-27] MEDS: chlordiazePOXIDE 25 MG CAPSULE 50 MG PO ×3 (05:48→22:33)
[2019-09-27] MEDS: MULTIVITAMIN 1 TABLET 1 TAB PO (08:29)
[2019-09-27] MEDS: THIAMINE 500 MG in SODIUM CHLORIDE 0.9% 50 ML 220 ML IV ×3 (08:29→21:19)
[2019-09-27] MEDS: FOLIC ACID 1 MG TABLET PO (08:30)
--- NOTE | 2019-09-27 08:46 | PM.PN.1 ---
Subjective Subjective Date Patient Seen: 09/27/19 Interval history: Gracia Crow is a 59-year-old female with a past medical history significant for alcohol dependence with previous alcohol withdrawal and delirium tremens who presented to the ED after being found down by her father for unknown amount of time and was admitted for alcohol withdrawal with seizures and delirium tremens, rhabdomyolysis, and UTI. The patient is resting in bed comfortably. She is quite tremulous. Her last CIWA score was 7. She appears to have Wernicke's Korsakoff syndrome with confusion, confabulation, opthalmoplegia and ataxia. Plan to continue IV thiamine. She reports that her last drink was yesterday at midnight, however, she was hospitalized yesterday and she was in the hospital last night. Her alcohol level on admission was negative so it has likely been several days since her last drink. She is alert and oriented to person and place. She reports that the year is 2005 and then later changes her answer to 2016 when she is asked what year it is and informed her of the current date. She reports that she began drinking recently again after her mother and grandmother and that she had previously not drank alcohol for over a year. She reports that she has been drinking daily for approximately 10 years and drinks a pint of vodka per day. She reports that she does not want to go to AA or inpatient alcohol treatment as this only makes her want to drink more. Plan for [employer] consult. She endorses mild headache, intermittent lightheadedness, and tremulousness. She denies formication, hallucinations or delusions, paranoia, shortness of breath, chest pain, abdominal pain, nausea, vomiting, fever, chills, dysuria, diarrhea or constipation. She is voiding via Tolentino catheter which we will plan to remove today. Plan to get patient up and ambulating with physical and occupational therapy. Exam Vital Signs (past 8 hours): - 09/27/19 01:00 09/27/19 02:00 09/27/19 03:47 Temperature 97.9 F 97.9 F Pulse Rate 80 82 76 Respiratory Rate 18 17 16 Blood Pressure 118/68 101/65 104/68 Pulse Oximetry 98 98 98 09/27/19 03:56 09/27/19 04:00 09/27/19 04:08 Temperature Pulse Rate 76 76 Respiratory Rate 17 17 Blood Pressure 105/67 105/67 Pulse Oximetry 98 98 09/27/19 05:00 09/27/19 06:38 09/27/19 07:00 Temperature Pulse Rate 75 75 74 Respiratory Rate 22 18 17 Blood Pressure 106/70 117/73 113/71 Pulse Oximetry 98 100 09/27/19 08:00 09/27/19 08:32 Temperature 98.1 F Pulse Rate 72 Respiratory Rate 27 H 18 Blood Pressure 129/81 Pulse Oximetry 100 97 Oxygen Delivery Method Room Air Oxygen Flow Rate 0 Narrative Exam Narrative: General: Older female sitting in bed and in no acute distress, appears older than stated age, tremulous, slightly anxious, well-developed, well-nourished, slowed mentation with confabulation otherwise appropriately interactive. HEENT: Normocephalic, atraumatic. External ears without defect. Pupils equal, round, and reactive to light. Ophthalmoplegia and nystagmus. Anicteric sclerae, moist conjunctivae, and no lid lag. Oropharynx free of erythema and cobble stoning with moist mucosa. Large ecchymoses on right-sided chin and several small ecchymoses scattered over body. Neck: Supple with full range of motion. No jugular venous distension. No lymphadenopathy or thyromegaly. Cardiovascular: Regular rate and rhythm without murmurs, rubs, or gallops appreciated. Pulmonary: Clear to auscultation bilaterally without crackles, wheezes, or rhonchi. Normal respiratory effort with no use of accessory muscles. Abdomen: Soft, bowel sounds present, nontender, nondistended. No hepatosplenomegaly or masses appreciated. Extremities: No clubbing, cyanosis, or edema. Skin: Normal temperature, turgor, and texture; no rash, ulcers, or subcutaneous nodules appreciated. Neurological: Cranial nerves grossly intact. Wernicke-Korsakoff syndrome with ophthalmoplegia, nystagmus, confabulation and probable ataxia. Generalized weakness but no focal neurological deficits. Psychiatric: Depressed and mildly anxious mood and flat affect. Alert and oriented to person and place. Mentation slowed with confabulation. Mild cognitive impairment versus dementia with short and long-term memory recall deficit. Objective Labs Result Diagrams: 09/27/19 04:35 09/27/19 04:35 Labs: Laboratory Results - last 24 hr 0709/26/19 09/26/19 11:05 11:05 11:05 WBC 11.5 H RBC 4.48 Hgb 14.9 Hct 44.3 MCV 98.8 MCH 33.2 MCHC 33.6 RDW 13.3 Plt Count 87 L Neut % (Auto) 78.3 H Lymph % (Auto) 7.2 L [place] % (Auto) 14.4 H Eos % (Auto) 0.0 L Baso % (Auto) 0.1 Neut # (Auto) 9000 H Lymph # (Auto) 800 L [place] # (Auto) 1700 H Eos # (Auto) 0 Baso # (Auto) 0 PT 11.2 INR 1.0 APTT 26 L ABG pH ABG pCO2 ABG pO2 ABG HCO3 ABG Total CO2 ABG O2 Saturation ABG Base Excess FiO2 Sodium 147 H Potassium 3.3 L Chloride 104 Carbon Dioxide 21 L BUN 61 H Creatinine 1.03 Estimated GFR 55.0 L BUN/Creatinine Ratio 59.2 H Glucose 115 H Lactate Calcium 11.1 H Phosphorus Magnesium Total Bilirubin 2.4 H Conjugated Bilirubin Unconjugated Bilirubin AST 1116 H ALT 316 H Alkaline Phosphatase 75 Ammonia Total Creatine Kinase 32091 H CK-MB (CK-2) 32.90 H CK-MB (CK-2) Rel Index 0.1 L Troponin I 0.014 Total Protein 9.4 H Albumin 5.3 H Globulin 4.1 Albumin/Globulin Ratio 1.3 TSH Urine Color Urine Appearance Urine pH Ur Specific [place] Urine Protein Urine Glucose (UA) Urine Ketones Urine Occult Blood Urine Nitrate Urine Bilirubin Ur Bilirubin Confirm Urine Urobilinogen Ur Leukocyte Esterase Urine RBC Urine WBC Urine Bacteria Hyaline Casts Urine Mucus Ur Culture Indicated? Nasal Screen MRSA (PCR) Salicylates U Opiates 300ng/mL cut Ur Oxycodone Screen Urine Methadone Screen Acetaminophen Ur Barbiturates Screen U Tricyclic Antidepress Ur Phencyclidine Scrn Ur Amphetamines Screen U Methamphetamines Scrn Ur MDMA Scrn (Ecstasy) U Benzodiazepines Scrn Urine Cocaine Screen U Marijuana (THC) Screen Ethyl Alcohol < 10 COVID-19 PCR Blood Type Antibody Screen 09/26/19 09/26/19 09/26/19 11:05 11:05 11:35 WBC RBC Hgb Hct MCV MCH MCHC RDW Plt Count Neut % (Auto) Lymph % (Auto) [place] % (Auto) Eos % (Auto) Baso % (Auto) Neut # (Auto) Lymph # (Auto) [place] # (Auto) Eos # (Auto) Baso # (Auto) PT INR APTT ABG pH ABG pCO2 ABG pO2 ABG HCO3 ABG Total CO2 ABG O2 Saturation ABG Base Excess FiO2 Sodium Potassium Chloride Carbon Dioxide BUN Creatinine Estimated GFR BUN/Creatinine Ratio Glucose Lactate 5.4 H* Calcium Phosphorus Magnesium 2.5 H Total Bilirubin Conjugated Bilirubin Unconjugated Bilirubin AST ALT Alkaline Phosphatase Ammonia Total Creatine Kinase CK-MB (CK-2) CK-MB (CK-2) Rel Index Troponin I Total Protein Albumin Globulin Albumin/Globulin Ratio TSH Urine Color Urine Appearance Urine pH Ur Specific [place] Urine Protein Urine Glucose (UA) Urine Ketones Urine Occult Blood Urine Nitrate Urine Bilirubin Ur Bilirubin Confirm Urine Urobilinogen Ur Leukocyte Esterase Urine RBC Urine WBC Urine Bacteria Hyaline Casts Urine Mucus Ur Culture Indicated? Nasal Screen MRSA (PCR) Salicylates U Opiates 300ng/mL cut Ur Oxycodone Screen Urine Methadone Screen Acetaminophen Ur Barbiturates Screen U Tricyclic Antidepress Ur Phencyclidine Scrn Ur Amphetamines Screen U Methamphetamines Scrn Ur MDMA Scrn (Ecstasy) U Benzodiazepines Scrn Urine Cocaine Screen U Marijuana (THC) Screen Ethyl Alcohol Cancelled COVID-19 PCR Blood Type Antibody Screen 09/26/19 09/26/19 09/26/19 11:35 11:35 11:35 WBC RBC Hgb Hct MCV MCH MCHC RDW Plt Count Neut % (Auto) Lymph % (Auto) [place] % (Auto) Eos % (Auto) Baso % (Auto) Neut # (Auto) Lymph # (Auto) [place] # (Auto) Eos # (Auto) Baso # (Auto) PT INR APTT ABG pH ABG pCO2 ABG pO2 ABG HCO3 ABG Total CO2 ABG O2 Saturation ABG Base Excess FiO2 Sodium Potassium Chloride Carbon Dioxide BUN Creatinine Estimated GFR BUN/Creatinine Ratio Glucose Lactate Calcium Phosphorus Magnesium Total Bilirubin Conjugated Bilirubin Unconjugated Bilirubin AST ALT Alkaline Phosphatase Ammonia Total Creatine Kinase CK-MB (CK-2) CK-MB (CK-2) Rel Index Troponin I Total Protein Albumin Globulin Albumin/Globulin Ratio TSH Urine Color Yellow Urine Appearance Sl cloudy Urine pH 6.5 Ur Specific [place] 1.020 Urine Protein 3+ H Urine Glucose (UA) Negative Urine Ketones 1+ H Urine Occult Blood 3+ H Urine Nitrate Positive H Urine Bilirubin 1+ H Ur Bilirubin Confirm Negative Urine Urobilinogen 0.2 Ur Leukocyte Esterase 1+ H Urine RBC 1-5/hpf Urine WBC 30-100/hpf H Urine Bacteria Many (>30) H Hyaline Casts 0-1/lpf Urine Mucus 2+ H Ur Culture Indicated? Specimen cultured Nasal Screen MRSA (PCR) Salicylates U Opiates 300ng/mL cut Negative Ur Oxycodone Screen Negative Urine Methadone Screen Negative Acetaminophen Ur Barbiturates Screen Negative U Tricyclic Antidepress Negative Ur Phencyclidine Scrn Negative Ur Amphetamines Screen Negative U Methamphetamines Scrn Negative Ur MDMA Scrn (Ecstasy) Negative U Benzodiazepines Scrn Negative Urine Cocaine Screen Negative U Marijuana (THC) Screen Negative Ethyl Alcohol COVID-19 PCR Blood Type A Positive Antibody Screen Negative 09/26/19 09/26/19 09/26/19 11:45 13:20 13:35 WBC RBC Hgb Hct MCV MCH MCHC RDW Plt Count Neut % (Auto) Lymph % (Auto) [place] % (Auto) Eos % (Auto) Baso % (Auto) Neut # (Auto) Lymph # (Auto) [place] # (Auto) Eos # (Auto) Baso # (Auto) PT INR APTT ABG pH 7.38 ABG pCO2 30.4 L ABG pO2 84 ABG HCO3 18 L ABG Total CO2 19 L ABG O2 Saturation 96 ABG Base Excess -7.0 L FiO2 21 Sodium Potassium Chloride Carbon Dioxide BUN Creatinine Estimated GFR BUN/Creatinine Ratio Glucose Lactate Calcium Phosphorus Magnesium Total Bilirubin Conjugated Bilirubin Unconjugated Bilirubin AST ALT Alkaline Phosphatase Ammonia 11 Total Creatine Kinase CK-MB (CK-2) CK-MB (CK-2) Rel Index Troponin I Total Protein Albumin Globulin Albumin/Globulin Ratio TSH Urine Color Urine Appearance Urine pH Ur Specific [place] Urine Protein Urine Glucose (UA) Urine Ketones Urine Occult Blood Urine Nitrate Urine Bilirubin Ur Bilirubin Confirm Urine Urobilinogen Ur Leukocyte Esterase Urine RBC Urine WBC Urine Bacteria Hyaline Casts Urine Mucus Ur Culture Indicated? Nasal Screen MRSA (PCR) Salicylates U Opiates 300ng/mL cut Ur Oxycodone Screen Urine Methadone Screen Acetaminophen Ur Barbiturates Screen U Tricyclic Antidepress Ur Phencyclidine Scrn Ur Amphetamines Screen U Methamphetamines Scrn Ur MDMA Scrn (Ecstasy) U Benzodiazepines Scrn Urine Cocaine Screen U Marijuana (THC) Screen Ethyl Alcohol COVID-19 PCR Negative Blood Type Antibody Screen 09/26/19 09/26/19 09/26/19 14:00 14:20 14:20 WBC RBC Hgb Hct MCV MCH MCHC RDW Plt Count Neut % (Auto) Lymph % (Auto) [place] % (Auto) Eos % (Auto) Baso % (Auto) Neut # (Auto) Lymph # (Auto) [place] # (Auto) Eos # (Auto) Baso # (Auto) PT INR APTT ABG pH ABG pCO2 ABG pO2 ABG HCO3 ABG Total CO2 ABG O2 Saturation ABG Base Excess FiO2 Sodium Potassium Chloride Carbon Dioxide BUN Creatinine 0.78 Estimated GFR > 60.0 BUN/Creatinine Ratio Glucose Lactate 0.7 Calcium Phosphorus Magnesium Total Bilirubin 1.3 Conjugated Bilirubin 0.0 Unconjugated Bilirubin 1.1 AST 706 H ALT 216 H Alkaline Phosphatase 38 Ammonia Total Creatine Kinase 22400 H CK-MB (CK-2) 22.20 H CK-MB (CK-2) Rel Index 0.1 L Troponin I Total Protein 6.3 Albumin 3.5 Globulin 2.8 Albumin/Globulin Ratio 1.3 TSH Urine Color Urine Appearance Urine pH Ur Specific [place] Urine Protein Urine Glucose (UA) Urine Ketones Urine Occult Blood Urine Nitrate Urine Bilirubin Ur Bilirubin Confirm Urine Urobilinogen Ur Leukocyte Esterase Urine RBC Urine WBC Urine Bacteria Hyaline Casts Urine Mucus Ur Culture Indicated? Nasal Screen MRSA (PCR) Salicylates 1.0 U Opiates 300ng/mL cut Ur Oxycodone Screen Urine Methadone Screen Acetaminophen < 10 L Ur Barbiturates Screen U Tricyclic Antidepress Ur Phencyclidine Scrn Ur Amphetamines Screen U Methamphetamines Scrn Ur MDMA Scrn (Ecstasy) U Benzodiazepines Scrn Urine Cocaine Screen U Marijuana (THC) Screen Ethyl Alcohol COVID-19 PCR Blood Type Antibody Screen 09/26/19 09/26/19 09/26/19 14:20 16:50 18:05 WBC RBC Hgb Hct MCV MCH MCHC RDW Plt Count Neut % (Auto) Lymph % (Auto) [place] % (Auto) Eos % (Auto) Baso % (Auto) Neut # (Auto) Lymph # (Auto) [place] # (Auto) Eos # (Auto) Baso # (Auto) PT 12.0 INR 1.0 APTT 24 L D ABG pH ABG pCO2 ABG pO2 ABG HCO3 ABG Total CO2 ABG O2 Saturation ABG Base Excess FiO2 Sodium 149 H Potassium 3.6 Chloride 117 H Carbon Dioxide 22 BUN 48 H Creatinine 0.80 Estimated GFR > 60.0 BUN/Creatinine Ratio 60.0 H Glucose 94 Lactate Calcium 8.4 Phosphorus Magnesium Total Bilirubin Conjugated Bilirubin Unconjugated Bilirubin AST ALT Alkaline Phosphatase Ammonia Total Creatine Kinase CK-MB (CK-2) CK-MB (CK-2) Rel Index Troponin I Total Protein Albumin Globulin Albumin/Globulin Ratio TSH Urine Color Urine Appearance Urine pH Ur Specific [place] Urine Protein Urine Glucose (UA) Urine Ketones Urine Occult Blood Urine Nitrate Urine Bilirubin Ur Bilirubin Confirm Urine Urobilinogen Ur Leukocyte Esterase Urine RBC Urine WBC Urine Bacteria Hyaline Casts Urine Mucus Ur Culture Indicated? Nasal Screen MRSA (PCR) Negative for mrsa Salicylates U Opiates 300ng/mL cut Ur Oxycodone Screen Urine Methadone Screen Acetaminophen Ur Barbiturates Screen U Tricyclic Antidepress Ur Phencyclidine Scrn Ur Amphetamines Screen U Methamphetamines Scrn Ur MDMA Scrn (Ecstasy) U Benzodiazepines Scrn Urine Cocaine Screen U Marijuana (THC) Screen Ethyl Alcohol COVID-19 PCR Blood Type Antibody Screen 09/26/19 09/26/19 09/26/19 22:00 22:00 22:00 WBC RBC Hgb Hct MCV MCH MCHC RDW Plt Count Neut % (Auto) Lymph % (Auto) [place] % (Auto) Eos % (Auto) Baso % (Auto) Neut # (Auto) Lymph # (Auto) [place] # (Auto) Eos # (Auto) Baso # (Auto) PT INR APTT ABG pH ABG pCO2 ABG pO2 ABG HCO3 ABG Total CO2 ABG O2 Saturation ABG Base Excess FiO2 Sodium 145 Potassium 2.8 L Chloride 113 H Carbon Dioxide 26 BUN 31 H Creatinine 0.63 Estimated GFR > 60.0 BUN/Creatinine Ratio 49.2 H Glucose 139 H Lactate Calcium 8.2 L Phosphorus Magnesium 2.0 Total Bilirubin Conjugated Bilirubin Unconjugated Bilirubin AST ALT Alkaline Phosphatase Ammonia Cancelled Total Creatine Kinase CK-MB (CK-2) CK-MB (CK-2) Rel Index Troponin I Total Protein Albumin Globulin Albumin/Globulin Ratio TSH Urine Color Urine Appearance Urine pH Ur Specific [place] Urine Protein Urine Glucose (UA) Urine Ketones Urine Occult Blood Urine Nitrate Urine Bilirubin Ur Bilirubin Confirm Urine Urobilinogen Ur Leukocyte Esterase Urine RBC Urine WBC Urine Bacteria Hyaline Casts Urine Mucus Ur Culture Indicated? Nasal Screen MRSA (PCR) Salicylates U Opiates 300ng/mL cut Ur Oxycodone Screen Urine Methadone Screen Acetaminophen Ur Barbiturates Screen U Tricyclic Antidepress Ur Phencyclidine Scrn Ur Amphetamines Screen U Methamphetamines Scrn Ur MDMA Scrn (Ecstasy) U Benzodiazepines Scrn Urine Cocaine Screen U Marijuana (THC) Screen Ethyl Alcohol COVID-19 PCR Blood Type Antibody Screen 09/27/19 09/27/19 09/27/19 04:35 04:35 04:35 WBC 5.2 D RBC 3.45 L Hgb 11.3 L Hct 34.0 L MCV 98.6 MCH 32.9 MCHC 33.4 RDW 13.3 Plt Count 69 L Neut % (Auto) 67.0 Lymph % (Auto) 15.2 L [place] % (Auto) 16.8 H Eos % (Auto) 0.8 L Baso % (Auto) 0.2 Neut # (Auto) 3500 Lymph # (Auto) 800 L [place] # (Auto) 900 Eos # (Auto) 0 Baso # (Auto) 0 PT INR APTT ABG pH ABG pCO2 ABG pO2 ABG HCO3 ABG Total CO2 ABG O2 Saturation ABG Base Excess FiO2 Sodium 144 Potassium 3.8 Chloride 117 H Carbon Dioxide 26 BUN 22 H Creatinine 0.56 Estimated GFR > 60.0 BUN/Creatinine Ratio 39.3 H Glucose 87 Lactate Calcium 8.1 L Phosphorus 2.6 Magnesium 1.9 Total Bilirubin 1.2 Conjugated Bilirubin 0.0 Unconjugated Bilirubin 1.0 AST 468 H ALT 186 H Alkaline Phosphatase 34 L Ammonia Total Creatine Kinase CK-MB (CK-2) CK-MB (CK-2) Rel Index Troponin I Total Protein 5.9 L Albumin 3.2 L Globulin 2.7 Albumin/Globulin Ratio 1.2 TSH 1.93 Urine Color Urine Appearance Urine pH Ur Specific [place] Urine Protein Urine Glucose (UA) Urine Ketones Urine Occult Blood Urine Nitrate Urine Bilirubin Ur Bilirubin Confirm Urine Urobilinogen Ur Leukocyte Esterase Urine RBC Urine WBC Urine Bacteria Hyaline Casts Urine Mucus Ur Culture Indicated? Nasal Screen MRSA (PCR) Salicylates U Opiates 300ng/mL cut Ur Oxycodone Screen Urine Methadone Screen Acetaminophen Ur Barbiturates Screen U Tricyclic Antidepress Ur Phencyclidine Scrn Ur Amphetamines Screen U Methamphetamines Scrn Ur MDMA Scrn (Ecstasy) U Benzodiazepines Scrn Urine Cocaine Screen U Marijuana (THC) Screen Ethyl Alcohol COVID-19 PCR Blood Type Antibody Screen Assessment & Plan Assessment & Plan narrative: rGacia Crow is a 59-year-old female with a past medical history significant for alcohol dependence with previous alcohol withdrawal and delirium tremens who presented to the ED after being found down by her father for unknown amount of time and was admitted for alcohol withdrawal with seizures and delirium tremens, rhabdomyolysis, and UTI. 1. Acute alcohol withdrawal, alcohol withdrawal seizure, and DTs, secondary to alcohol dependence, present on admission. Improving. -Patient reportedly drinks over 1 L of hard liquor daily and prefers vodka. Patient was found with 150 bottles of vodka underneath her bed. She lives at home with her father who reportedly had not heard movement from her in 2 days and when he checked on her found her down and minimally responsive. Her father does not believe she was intentionally trying to stop drinking alcohol but rather ran out of alcohol and was unable to obtain more due to weakness. Patient has a history of alcohol withdrawal with DTs. No history of seizure activity previously. -CT brain without contrast demonstrated greater than expected cerebral volume loss for age, with resultant ventricular and sulcal prominence and periventricular and deep white matter chronic small vessel ischemic changes with intracranial internal carotid artery atherosclerosis. -Alcohol level was undetectable at < 10 on admission. During previous ED visits, the patient has been coherent with an alcohol level of greater than 400. -Continue alcohol withdrawal/CIWA protocol. Continue seizure precautions as patient had likely two seizures in ED and patient received Keppra 500 mg IV x1 in ED which will not be continued as treating alcohol withdrawal. Continue Librium 50 mg every 8 hours and lorazepam as needed per CIWA score. 2. Wernicke-Korsakoff syndrome, likely chronic, present on admission. Active. -Patient has confusion, confabulation, opthalmoplegia, nystagmus and ataxia. -CT brain without contrast demonstrated greater than expected cerebral volume loss for age, with resultant ventricular and sulcal prominence and periventricular and deep white matter chronic small vessel ischemic changes with intracranial internal carotid artery atherosclerosis. Could consider MRI to assess mammilary body degeneration. -Ammonia level negative at 11. -Continue thiamine 500 mg IV 3 times daily for 2-3 days then will transition to thiamine 100 mg PO 3 times daily for 1-2 weeks and then 100 mg PO daily thereafter. -Continue physical and occupational therapy evaluation and treatment. 3. Acute rhabdomyolysis, present on admission. Resolving. -Possibly traumatic from fall and being down for unknown period of time. Patient with seizure activity that likely contributed. -Initial total creatinine kinase 50,155. Total creatinine kinase trending downward now [id number]. -Continue IV fluids with 0.45 normal saline at 100 mL/hr. Continue to encourage p.o. intake of fluids. 4. Acute kidney injury, present on admission. Resolved. -Secondary to prerenal azotemia from severe dehydration, rhabdomyolysis and urinary tract infection. -Initial creatinine 1.0. Baseline creatinine 0.5. Creatinine trending down now 0.56 with IV fluid resuscitation. -Continue IV fluids as noted above. -Avoid nephrotoxic agents. -Abdominal ultrasound did not demonstrate any abnormalities of kidneys. -Continue to monitor creatinine daily. 5. Acute urinary tract infection, present on admission. Resolving. -Urinalysis appears grossly infected with urine culture preliminarily growing gram-negative bacilli. -Received cefepime 2 g IV x1 in the ED. Continue ceftriaxone 1 g IV daily pending urine culture identification and sensitivities. 6. Acute likely on chronic alcoholic hepatitis, present on admission. Resolving. -Initial LFTs severely elevated in alcoholic induced pattern of 2:1 AST:ALT with: Total bili elevated at 2.4, AST severely elevated at 1116, ALT elevated at 316 and alk-phos normal at 75. LFTs improving with IV fluid hydration and will continue as IV fluids as above. -Abdominal ultrasound demonstrated normal liver size and homogeneous in echotexture. -Acetaminophen level negative at < 10 and salicylate level negative at 1.0. Urine drug screen negative. Alcohol level undetectable < 10. -Ordered acute hepatitis panel which is a send out and pending. -Continue to monitor LFTs daily. 7. Acute hypernatremia, present on admission. Resolved. -Secondary to severe dehydration as evidence by concentrated labs and rhabdomyolysis. -Initial sodium level 147 and increased to 149 after 1 L NS bolus in ED. Sodium level normalized with IV fluid hydration now 144. Continue IV fluid hydration as above. -Continue to monitor sodium level daily. 8. Thrombocytopenia, unclear acuity but likely chronic, present on admission. Active. -Secondary to chronic alcohol dependence and bone marrow suppression. -Initial platelet level low at 87 and trended down now 69 likely due to IV fluid hydration. Held chemical VTE prophylaxis. No overt signs of bleeding. -Continue to monitor platelet count daily. 9. Ruled out sepsis. -COVID-19 negative. Chest x-ray did not demonstrate any acute cardiopulmonary process. Afebrile. Blood cultures have no growth to date. -Patient's lactate was elevated at 5.4 and quickly resolved with IV fluid resuscitation. Patient's lactic acid was elevated due to seizures and being found down for unknown likely prolonged period of time. -Patient has urinary tract infection but does not appear septic and will continue to treat urinary tract infection as above. Code status: Full code VTE prophylaxis: SCDs, chemical prophylaxis but bleed contraindicated due to thrombocytopenia Disposition: Patient remains inpatient for treatment of alcohol withdrawal, Wernicke-Korsakoff syndrome, rhabdomyolysis, and urinary tract infection.
[2019-09-27 12:09] LABS: Creatine Kinase 15345 U/L (30-135)
--- NOTE | 2019-09-27 12:19 | DIET.PN ---
Dietary Progress Note Assessment: Ms. Crow is a 59-year-old female with past medical history of alcohol abuse (prior documentation of liters of hard liquor daily) who was found by her father yesterday morning on the floor of her room naked. She was admitted to the ICU for likely alcohol withdrawal seizure with possible delirium tremens, hypernatremia, acute cystitis, rhabdomyolysis, and severely elevated liver enzymes. Patient was eating a fruit bowl during my assessment reporting improved appetite. She provided food hx of turkey, chicken, eggs, cottage cheese, cereal and oatmeal. She also drinks ensure, takes a multivitamin and vit B12. She does not report any recent unintentional weight loss. HT: 167.64cm WT: 56kg BMI: 19.9 Labs: Chl: 117 BUN: 22 Ca: 8.1 AST: 468 (1116 @ admit) ALT: 186 (316 @ admit) Ammonia: [id number] MNA: na Tani: 16 Nutrition Diagnosis: Inadequate energy intake r/t psychological causes such as depression aeb failure to maintain appropriate weight, energy intake from diet less than EER, excessive consumption of alcohol. Interventions: 1. Education on high tiarra/high protein nutrition therapy. Provided education on and importance of thiamine rich foods. 2. ONS Ensure BID. Pt agreeable. Coupons provided. Diet Order: General EER: 1600 tiarra (30cal/kg); Pro: 67-78g (1.2-1.4g/kg) malnutrition Monitoring/Evaluations: weight, PO's, ONS acceptance, assessment of malnutrition
[2019-09-27] MEDS: POTASSIUM CHLORIDE 20 MEQ TAB 40 MEQ PO (12:22)
[2019-09-27] MEDS: MAGNESIUM CHLORIDE 64 MG TABLET 128 MG PO (12:22)
[2019-09-27] MEDS: SODIUM CHLORIDE 0.45% 1,000 ML 100 ML IV ×2 (12:23→22:33)
--- NOTE | 2019-09-27 12:41 | PT.IIE ---
Medical History (Last Reviewed 09/26/19 @ 16:31 by Osmin Andrade DO) Alcohol abuse (Acute 06/05/15) Alcohol withdrawal delirium (Acute) Physical Therapy Inpatient Evaluation/Re-Eval M1 PT/OT-IP Prior Functional Status Start: 09/27/19 10:23 Freq: NEEDED Status: Active Protocol: Document 09/27/19 11:59 AW (Rec: 09/27/19 12:41 AW [id number]) Medical Review Prior Functional Status Medical History Reviewed Yes Communication Pt is able to make needs known . Mobility and Gait Pt states she is independent with all functional mobility at baseline. She denies use of any assistive device. Activities of Daily Living and IADL's Pt states she is independent with all ADL's. She does not drive. Social History Household Members family Number of Floors (Floors) Two Floors Number of Stairs To Enter/Railing? Pt is unable to describe how she enters her part of the house. She lives with her 85 yo father, Nirav. Pt states she lives on the bottom level and that there are 24 steps between downstairs and upstairs. Home Environment Standard Height Toilet,Walk in Shower,Built-In Shower Seat Home Equipment Hand Held Shower Employment Status Unemployed Additional Social History Comment Pt lives with her 85 yo father , Nirav. She states she does not provide any care for him. M2 PT-IP Current Condition Start: 09/27/19 10:23 Freq: NEEDED Status: Active Protocol: Document 09/27/19 11:59 AW (Rec: 09/27/19 12:41 AW [id number]) Physical Therapy Current Condition Current Condition Evaluation Date 09/27/19 Treatment Diagnosis alcohol withdrawal seizure; impaired mobility with ataxic gait Onset Date 09/26/19 Precautions Other Precautions seizure precautions M3 PT-IP Subjective Start: 09/27/19 10:23 Freq: NEEDED Status: Active Protocol: Document 09/27/19 11:59 AW (Rec: 09/27/19 12:41 AW [id number]) Subjective Physical Therapy Visit Type Type Initial Evaluation Visit Start Time 10:44 Visit Stop Time 11:32 Total Visit Minutes 48 Physical Therapy Visit Comments Patient Comments Pt is difficult to rouse but is willing to participate with therapy. Therapy Pain Assessment Pain When Pain Assessed During Mobility Pain Present Pain Present Pain Reported Location lower abdomen/groin Scale Used pt unable to quantify Description With Movement Pain Behaviors Guarding,Restlessness,Wincing Pain Management Techniques Distraction M4 PT-IP Mobility and Gait Start: 09/27/19 10:23 Freq: NEEDED Status: Active Protocol: Document 09/27/19 11:59 AW (Rec: 09/27/19 12:41 AW [id number]) PT-Bed Mobility Assessment Rolling Type of Rolling Roll to Right Level of Assist Moderate Assistance Supine to Sit Supine to Sit Maximum Assistance,1 Person Assistance,Bedrails Scooting Scooting to Edge of Bed Minimal Assistance PT-Transfer Assessment Sit to and From Stand Sit to and from Stand Moderate Assistance,Maximum Assistance,1 Person Assistance ,Use of Upper Extremities Equipment Transfer Assistive Device Gait Belt,Front Wheeled Walker Transfers Transfer Destination Chair,Bedside Commode Transfer Technique Stand Step Pivot Transfer Ability Level of Assist Maximum Assistance,1 Person Assistance Comments Mobility Comments Pt was reclined in the bed when PT arrived. She was difficult to rouse and was disoriented. With HOB flat, she had difficulty moving her legs toward the edge of the bed. She was cued to roll to her right side, requiring mod assist. She completed sidelying to sit transition with max A x 1. In sitting, she required CGA at all times due to uncontrolled posterior lean. Pt was cued to stand and required max A x 1 and max cues for quad activation to stand with FWW. In standing, she exhibited strong retropulsive tendencies of which she was aware but unable to correct without assist. Pt had difficulty shifting her weight in order to advance each leg, requiring max cues for weight shift and max A x 1 for balance and walker management. She transferred to the [facility] via step pivot transfer and was able to void. She again required max A x 1 to stand from the [facility] and to transfer 90 degrees to the chair. Pt had poor control of her movement during the transfer and landed sitting close to the right side of the chair. She was able to minimally scoot toward the middle of the chair where she was left in reclined position with chair alarm activated and RN attending. BP was steady throughout session (124/72 prior to activity and 130/69 after). HR was 70-80 at rest and 90-100 during activity. Gait Assessment Gait Gait Assistance Required: Maximum Assistance,1 Person Assist Assistive Devices Assistive Device Gait Belt,Front Wheeled Walker Gait Deviations General Gait Pattern Ataxic,Decreased Stride Length ,Decreased Feet Clearance, Flexed Trunk,Wide Based Gait Factors Limiting Gait Function Factors Limiting Gait Function Decreased Activity Tolerance, Decreased Sensation,Decreased Strength,Difficulty Following Directions,Incoordination,Pain ,Poor Balance,Poor Safety Awareness Comments Gait Comments Transfers only. See mobility comments for details. Stair Climbing Assessment Comments Stair Climbing Comments Not assessed. Pt unable at this time. PT-Balance Assessment Sitting Balance and Reactions Static Sitting Balance Ability Poor Dynamic Sitting Balance Ability Poor Standing Balance and Reactions Static Standing Balance Ability Poor Dynamic Standing Balance Ability Poor Device Used FWW Balance Tests Single Limb Standing unable M5 PT-IP Objective Assessments Start: 09/27/19 10:23 Freq: NEEDED Status: Active Protocol: Document 09/27/19 11:59 AW (Rec: 09/27/19 12:41 AW [id number]) Orientation Orientation/Cognition Level of Alertness Confusional State Orientation Name,Place Language Function Ability Word Finding Difficulties Safety Awareness Decreased Safety Awareness Memory Description Short Term Impaired Comments Pt was oriented to self and place only. She had word finding difficulty and had significant challenges attending to task. She had difficulty following single- step instructions. Gross Range of Motion Lower Extremity ROM Assessment Bilaterally Impaired Impairments B ankles lack dorsiflexion past neutral. Strength Lower Extremity Strength Assessment Bilaterally Impaired Hip 3-/5 Knee 4-/5 Ankle 4-/5 Coordination Assessment Gross Coordination Gross Coordination Impaired Assessment Finger to Nose Test Severe Impairment Pronation/Supination Test Activity Impossible Foot Tapping Test Severe Impairment Coordination Comments Ataxic gait. Impaired motor planning and execution. Sensation Assessment Sensation Gross Sensation Right UE Impaired,Left UE Impaired,Right LE Impaired, Left LE Impaired Light Touch Impaired Proprioception (Position) Impaired Comments Sensation Comments Proprioception impaired with testing of bilateral ankles Muscle Tone Muscle Tone WNL No Muscle Tone Location Bilateral Lower Extremity Type of Tone Hypertonicity Severity of Tone Moderate Manifistation of Tone Resting Tremors,Ataxia M6 PT-IP Treatment Start: 09/27/19 10:23 Freq: NEEDED Status: Active Protocol: Document 09/27/19 11:59 AW (Rec: 09/27/19 12:41 AW [id number]) Physical Therapy Treatment Education Education Provided Precautions,Safety Other Treatments Other Treatment Performed Provided education on role of PT, plan of care, benefits of out of bed activity for alertness and for maintaining/ improving strength. M7 PT-IP Assessment and Plan Start: 09/27/19 10:23 Freq: NEEDED Status: Active Protocol: Document 09/27/19 11:59 AW (Rec: 09/27/19 12:41 AW [id number]) PT Summary Assessment and Plan Potential Rehabilitation Potential Fair Status of Condition at Evaluation Evolving Summary Impairments Pain,ROM,Strength,Balance, Coordination,Sensation, Cognition,Bed Mobility, Transfers,Gait,Activity Tolerance Assessment Summary Gracia is a 59 yo woman seen for acute PT evaluation one day after being admitted with likely alcohol withdrawal seizure, delirium tremens, and rhabdomyolysis. She reports independent mobility and ADL's at baseline but is a challenging historian. On evaluation, she required max assist for bed mobility and transfers with FWW. She presents with impaired proprioception, ataxic gait, decreased strength, and impaired coordination. She will require SNF rehab at discharge. Goals Bed Mobility Goal Standby Assistance Transfer Goal Contact Guard Assistance,Front Wheeled Walker Gait Goal Contact Guard Assistance,Front Wheel Walker Gait Distance 75 Other Goals - up/down 12 steps SBA Days to Meet Goals 20 Frequency of Treatment Frequency Of Treatment Once a Day Treatment Plan Physical Therapy Treatment Plan Bed Mobility Training,Transfer Training,Gait Training, Therapeutic Exercise,Balance Retraining,Discharge Planning, Neuromuscular Re-ed, Coordination Retraining Other Recommendations and Next Treatment bed mobility, transfers Focus Recommendations To Nursing Amount of Assist Needed 2 Person Assist Discharge Recommendations PT Discharge Recommendations SNF Rehab Transportation Needs at Discharge Wheelchair/Cabulance,Stretcher /Ambulance
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
--- NOTE | 2019-09-27 14:17 | OT.IP.EVAL ---
Past Medical History (Last Reviewed 09/26/19 @ 16:31 by Osmin Andrade DO) Alcohol abuse (Acute 06/05/15) Alcohol withdrawal delirium (Acute) Occupational Therapy Inpatient Evaluation/Re-Eval M1 PT/OT-IP Prior Functional Status Start: 09/27/19 10:23 Freq: NEEDED Status: Active Protocol: Document 09/27/19 14:42 CGR (Rec: 09/27/19 15:00 CGR [id number]) Medical Review Prior Functional Status Medical History Reviewed Yes Communication Pt is able to make needs known . Mobility and Gait Pt states she is independent with all functional mobility at baseline. She denies use of any assistive device. Activities of Daily Living and IADL's Pt states she is independent with all ADL's. She does not drive. Social History Household Members family Living Arrangements House Number of Floors (Floors) Two Floors Number of Stairs To Enter/Railing? Per pt, pt lives on the bottom floor. Unable to obtain further information on stairs. Home Environment Standard Height Toilet,Walk in Shower,Built-In Shower Seat Home Equipment Hand Held Shower Employment Status Unemployed Additional Social History Comment Per chart and pt, pt lives in a 2 story house with her 85 y. o. father. She does not provide care for her father. M2 OT-IP Current Condition Start: 09/27/19 14:41 Freq: Status: Active Protocol: Document 09/27/19 14:42 CGR (Rec: 09/27/19 15:00 CGR [email or web address]) Occupational Therapy Current Condition Current Condition Evaluation Date 09/27/19 Treatment Diagnosis ETOH withdrawl Diagnosis Onset Date 09/26/19 M3 OT- IP Subjective and Pain Start: 09/27/19 14:41 Freq: Status: Active Protocol: Document 09/27/19 14:42 CGR (Rec: 09/27/19 15:00 CGR [email or web address]) OT- Subjective Occupational Therapy Visit Type Type Initial Evaluation Visit Start Time 19:59 Visit Stop Time 14:17 Total Visit Minutes 18 OT Pain Assessment Pain When Pain Assessed At Rest Pain Present Pain Present Denied Pain M4 OT- IP ADL's Start: 09/27/19 14:41 Freq: Status: Active Protocol: Document 09/27/19 14:42 CGR (Rec: 09/27/19 15:00 CGR [id number]) OT [id number] Comments OT Self-Feeding Comments Not meal time OT ADL-Grooming General Evaluation Grooming Ability Moderate Assistance Areas Needing Assistance Retrieving/Set-up of Grooming Items,Face Washing Comments OT Grooming Comments seated in chair for face washing and for applying lip balm. OT ADL-Oral Care General Eval Oral Care Ability Moderate Assistance Areas of Assistance Brushing Teeth,Retrieving/Set- Up of Items Comments Oral Care Comments performed seated in chair. Pt needed assist with opening tooth paste, applying it, and assist with holding container for spitting after brushing her teeth. OT ADL-Dressing General Eval Lower Body Dressing Ability Maximum Assistance Areas Needing Assistance Socks Comments OT Dressing Comments Pt unable to coordinate foot to knee for doffing or donning socks but perseverated on this task till teeth brushing items placed in front of her. OT ADL-Toileting Comments OT Toileting Comments not performed OT ADL-Bathing Comments OT Bathing Comments not performed M5 OT- IP IADL's Start: 09/27/19 14:41 Freq: Status: Active Protocol: Document 09/27/19 14:42 CGR (Rec: 09/27/19 15:00 CGR [email or web address]) OT-Instrumental Activities of Daily Living Deficits IADL Deficits Identified Deficits Home Safety Awareness Awareness of Need for Assistance at Home Decreased Awareness Ability to Problem Solve Emergency Unable to Problem Solve Situations M6 OT- IP Functional Cognition Start: 09/27/19 14:41 Freq: Status: Active Protocol: Document 09/27/19 14:42 CGR (Rec: 09/27/19 15:00 CGR [email or web address]) Cognitive Factors Limiting Selfcare Function Cognitive Ability Level of Alertness Alert,Confusional State Patient Orientation Name,Place Attention Span Ability Unable to Focus,Unable to Sustain Attention Ability to Follow Commands Able to Follow One Step Commands with Increased Time, Able to Follow One Step Commands with Repetition Cognitive Comments Cognitive Assessment Comments MD requesting SLUMS. Pt is not appropriate for cog assessment at this time d/t actively in ETOH withdrawl. Pt states the date is August 11, 2020. Pt would benefit from formal cog assessment when she clears from ETOH withdrawl. OT- Vision and Hearing OT- Hearing Assessment OT- Hearing Assessment WFL OT- Vision Assessment Vision Assessment Comments Pt had difficulty following commands to perform M7 OT- IP Mobility and Balance Start: 09/27/19 14:41 Freq: Status: Active Protocol: Document 09/27/19 14:42 CGR (Rec: 09/27/19 15:00 CGR [email or web address]) OT- Bed Mobility Assessment Sit to Supine Sit to Supine Assist Maximum Assistance Scooting Scooting to Edge of Bed Moderate Assistance OT-Transfer Assessment Sit to and From Stand Sit to and from Stand Moderate Assistance,Maximum Assistance,1 Person Assistance Transfers Transfer Ability Moderate Assistance,Maximum Assistance,1 Person Assistance Technique Transfer Destination Bed,Chair Transfer Technique Stand Step Pivot Devices Transfer Assistive Devices Gait Belt,Front Wheeled Walker Comments Mobility Comments First attempted tranfer with walker but pt was only able to weight shift, unable to lift feet for steps. Pt then returned to sitting in chair and stand pivot with gait belt and therapist in front of pt for transer and pt was able to takes steps to bed. Pt needed mod to max a for sit to supine and straightening out in bed. Pt asleep in bed before therapist left the room . OT- Balance Assessment Sitting Balance and Reactions Static Sitting Balance Ability Fair Dynamic Sitting Balance Ability Poor M8 OT- IP Objective Assessments Start: 09/27/19 14:41 Freq: Status: Active Protocol: Document 09/27/19 14:42 CGR (Rec: 09/27/19 15:00 CGR [email or web address]) OT Gross Range of Motion Upper Extremity Range of Motion Assessment Within Functional Limits OT Strength Upper Extremity Strength Assessment Within Functional Limits Comments Strength Comments 4/5 OT- Coordination Assessment Upper Extremity Finger to Nose Test Within Functional Limits Finger Tapping Test Within Functional Limits OT-Muscle Tone Assessment Muscle Tone WNL Yes M9 OT- IP Assessment and Plan Start: 09/27/19 14:41 Freq: Status: Active Protocol: Document 09/27/19 14:42 CGR (Rec: 09/27/19 15:00 CGR [email or web address]) OT Summary Assessment and Plan Potential Rehabilitation Potential Good Analytic Complexity at Evaluation Low Summary OT Impairments Strength,Balance,Coordination, Functional Cognition, Functional Mobility,Self- Feeding,Grooming,Dressing, Toileting,Bathing,Toilet Transfers,Shower Transfers, Activity Tolerance Progress Towards Goals Slow Progress due to Medical Issues,Slow Progress due to Activity Tolerance,Slow Progress due to Cognition Assessment Summary Pt presents as a low complexity evalution s/p admit for ETOH withdrawl, found down. Pt currently needing significant assist for all ADLs and functional mobility. Pt is likely to clear and be safe physically for discharge home, however, at this time pt would need STR if medically ready for discharge. Pt would benefit from a formal cog assessment once back to baseline after ETOH withdraw symptoms are cleared. Goals Self-Feeding Goal Independent Grooming Goal Independent Dressing Goal Independent Toileting Goal Independent Bathing Goal Independent Toilet Transfer Goal Independent Shower Transfer Goal Independent Days to Meet Goals 10 Frequency of Treatment Frequency Of Treatment Once a Day Treatment Plan OT Treatment Plan ADL Training,Functional Cognition Training,Functional Mobility,Patient/Family Education,Discharge Planning Other Treatment Recommendations and Next cog assessment when cleared of Treatment Focus ETOH withdrawl, ADLs seated vs standing Discharge Recommendations OT Discharge Recommendations SNF Rehab Other Discharge Recommendations Pt león to progress quickly to d/c home with family. Home Equipment Needs TBD Transportation Needs at Discharge Wheelchair/Cabulance
--- NOTE | 2019-09-27 14:26 | PC.NURSE ---
PT WITH VARYING CIWA SCORES 5-9- MEDICATED WITH ONLY PO LIBRIUM THIS SHIFT BUT DID MEDICATE WITH IV LORAZEPAM ON NOC SHIFT MOSTLY DUE TO TREMORS WHICH WERE SIGNIFICANT- SHE WORKED WITH BOTH PT/OT AND REQUIRES MUCH HELP- 2 PERSON TO TRANSFER, AND PT ATTEMPTS TO FEED SELF AND MAKES HUGE MESS WHILE DOING SO- TOLERATING DIET AND THIN LIQUIDS OK- NSR PER TELE, SCD'S IN PLACE AND BED ALARM ON
--- NOTE | 2019-09-27 15:53 | DI.US.S_ITS ---
PROCEDURE: US ABDOMEN COMPLETE INDICATIONS: ELEVATED LFTS, TONY TECHNIQUE: Real-time scanning was performed of the abdominal and retroperitoneal organs, with image documentation. COMPARISON: [facility], [place], ABDOMEN COMPLETE, 06/02/2015, 10:06. FINDINGS: Liver: Liver is normal in size and homogeneous in echotexture. Gallbladder: The gallbladder wall measures 0.8 mm in diameter. Subcentimeter nonobstructing calculi are present near the gallbladder neck. Biliary ducts: Intrahepatic bile ducts are non-dilated. Extrahepatic bile duct caliber measures 4.3 mm. Normal is 6-7 mm or less in diameter, or 10 mm or less post-cholecystectomy. Pancreas: The pancreas is nonvisualized. Spleen: Spleen is normal in size and homogeneous in echotexture. Kidneys: Kidneys are normal in size and echotexture. Right kidney measures 11.2 cm long; left kidney measures 9.7 cm long. No hydronephrosis or nephrolithiasis. No solid masses. Aorta: Visualized aorta is normal in caliber at less than 3 cm. Iliacs: Proximal common iliac arteries are normal in caliber at less than 2.5 cm. IVC: Intrahepatic inferior vena cava is patent. Miscellaneous: No free abdominal fluid. IMPRESSION: 1. Cholelithiasis. No findings to suggest choledocholithiasis or acute cholecystitis. Dictated by: Karen Cortes M.D. on 09/27/2019 at 8:56 Approved by: Karen Cortes M.D. on 09/27/2019 at 9:05
[2019-09-27] MEDS: CEFTRIAXONE 1 GM/50 ML FROZ.PIGGY IV (20:34)
[2019-09-28] VITALS (11 sets, daily range): BP systolic 103–149; BP diastolic 63–84; PULSE 79–98; RESP 16–22; TEMP 36.6–37.6; O2SAT 97–100
[2019-09-28 04:36] LABS: HBsAg Screen Negative (Negative); Hepatitis A Antibody IgM Negative (Negative); Hepatitis B Core Antibody IgM Negative (Negative); Hepatitis C Antibody <0.1 s/co ratio (0.0-0.9)
[2019-09-28 05:12] LABS: Add Manual Diff / Slide Review NO; Basophils Absolute Auto 0 /uL (0-100); Basophils Percent Auto 0.3 % (0-2); Eosinophils Absolute Auto 100 /uL (0-450); Eosinophils Percent Auto 1.3 % (2-4); Hematocrit 35.9 % (36-46); Hemoglobin 11.9 g/dL (12.0-16.0); Lymphocytes Absolute Auto 1000 /uL (1100-4500); Lymphocytes Percent Auto 16.8 % (25-40); Mean Corpuscular HGB Conc 33.1 % (30-36); Mean Corpuscular Hemoglobin 32.8 PG (26-34); Mean Corpuscular Volume 98.9 fL (80-100); Monocytes Absolute Auto 900 /uL (0-900); Monocytes Percent Auto 15.6 % (3-14); Neutrophils Absolute Auto 3800 /uL (1500-7000); Platelet Count 86 X10^3/uL (150-400); Red Blood Cell Count 3.63 X10^6/uL (4.0-5.2); Red Cell Distribution Width 13.2 % (11.6-14.8); White Blood Cell Count 5.7 X10^3/uL (4.5-11.0)
[2019-09-28 05:20] LABS: Magnesium 1.6 mg/dL (1.6-2.3)
[2019-09-28 05:21] LABS: Alanine Aminotransferase 164 IU/L (<35); Albumin 3.5 g/dL (3.5-5.0); Albumin Globulin Ratio 1.3 (1.0-2.8); Alkaline Phosphatase 49 U/L (38-126); Aspartate Aminotransferase 369 IU/L (14-36); BUN Creatinine Ratio 24.5 (6-22); Bilirubin Total 0.9 mg/dL (0.2-1.3); Blood Urea Nitrogen 12 mg/dL (7-17); Calcium 9.1 mg/dL (8.4-10.2); Carbon Dioxide 28 mmol/L (22-32); Chloride 108 mmol/L (98-107); Estimated Glomerular Filt Rate > 60.0 mL/min (>60); Globulin 2.6 g/dL (1.7-4.1); Glucose 112 mg/dL (70-100); HEMOLYSIS < 15 (0-50); Potassium 3.5 mmol/L (3.4-5.1); Sodium 140 mmol/L (137-145); Total Protein 6.1 g/dL (6.3-8.2)
[2019-09-28 05:38] LABS: Creatine Kinase 8725 U/L (30-135)
--- NOTE | 2019-09-28 06:17 | PC.NURSE ---
Legal Summer Intern Note-Patient has dozed intermittently, CIWA is 5-6, mostly for moderate tremors and disorientation to date, no additional Ativan needed overnight, receiving scheduled Librium. Up to BSC frequently with 1-2 person assist. Says my appetite is back requesting Ensure and protien drinks. SR, VSS, SpO2 97% on RA.
[2019-09-28] MEDS: chlordiazePOXIDE 25 MG CAPSULE 50 MG PO ×2 (07:18→21:05)
[2019-09-28] MEDS: THIAMINE 500 MG in SODIUM CHLORIDE 0.9% 50 ML 220 ML IV ×3 (07:42→21:06)
[2019-09-28] MEDS: MULTIVITAMIN 1 TABLET 1 TAB PO (07:43)
[2019-09-28] MEDS: FOLIC ACID 1 MG TABLET PO (07:43)
[2019-09-28] MEDS: SODIUM CHLORIDE 0.9% 1,000 ML 80 ML IV ×2 (07:43→22:20)
[2019-09-28] MEDS: MAGNESIUM SULFATE 2 GM/50 ML PIGGYBACK IV (07:49)
[2019-09-28] MEDS: POTASSIUM CHLORIDE 30 MEQ in SODIUM CHLORIDE 0.9% 250 ML 88.333 ML IV (10:02)
--- NOTE | 2019-09-28 11:11 | P.PN_ITS ---
Subjective Subjective Date Patient Seen: 09/28/19 Interval history: Gracia Crow is a 59-year-old female with a past medical history significant for alcohol dependence with previous alcohol withdrawal and delirium tremens who presented to the ED after being found down by her father for unknown amount of time and was admitted for alcohol withdrawal with seizures and delirium tremens, rhabdomyolysis, and UTI. The patient is resting in bed comfortably. Her tremulousness has improved significantly. Last CIWA score 5. She has Wernicke's Korsakoff syndrome with confusion, confabulation, opthalmoplegia and ataxia which is improving with IV thiamine repletion. She continues to refuse inpatient alcohol treatment and outpatient AA meetings because she reports that this makes her alcohol use worse. She reports that she is not planning on using alcohol ever again. She is interested in outpatient counseling and returning home with home health for physical therapy, occupational therapy and nursing. She has no complaints and denies headache, lightheadedness or dizziness, formication, hallucinations, delusions, paranoia, chest pain, shortness of breath, abdominal pain, nausea, vomiting, fever, chills, dysuria, diarrhea constipation. She is voiding and eliminating without difficulty. She is up ambulating with assistance. Exam Vital Signs (past 8 hours): - 09/28/19 04:27 09/28/19 04:44 09/28/19 08:00 Temperature 98.7 F Pulse Rate 79 Respiratory Rate 16 Blood Pressure 127/82 Pulse Oximetry 100 98 98 09/28/19 08:07 Temperature 99.6 F Pulse Rate 98 H Respiratory Rate 21 Blood Pressure 123/63 Pulse Oximetry 98 Oxygen Delivery Method Room Air Oxygen Flow Rate 0 Narrative Exam Narrative: General: Older female sitting in bed and in no acute distress, appears older than stated age, well-developed, well-nourished, slowed mentation with c onfabulation otherwise appropriately interactive. HEENT: Normocephalic, atraumatic. External ears without defect. Pupils equal, round, and reactive to light. Ophthalmoplegia and nystagmus improving. Anicteric sclerae, moist conjunctivae, and no lid lag. Oropharynx free of erythema and cobble stoning with moist mucosa. Large ecchymoses on right-sided chin and several small ecchymoses scattered over body. Neck: Supple with full range of motion. No lymphadenopathy or thyromegaly. Cardiovascular: Regular rate and rhythm without murmurs, rubs, or gallops appreciated. Pulmonary: Clear to auscultation bilaterally without crackles, wheezes, or rhonchi. Normal respiratory effort with no use of accessory muscles. Abdomen: Soft, bowel sounds present, nontender, nondistended. No hepatosplenomegaly or masses appreciated. Extremities: No clubbing, cyanosis, or edema. Skin: Normal temperature, turgor, and texture; no rash, ulcers, or subcutaneous nodules appreciated. Neurological: Cranial nerves grossly intact. Wernicke-Korsakoff syndrome with ophthalmoplegia, nystagmus, confabulation and ataxia, improving. Generalized weakness but no focal neurological deficits. Psychiatric: Normal mood and flat and slightly anxious affect. Alert and oriented to person and place. Mentation slowed with confabulation. Mild cognitive impairment versus dementia with short and long-term memory recall d eficit. Objective Labs Result Diagrams: 09/28/19 04:55 09/28/19 04:55 Labs: Laboratory Results - last 24 hr 09/27/19 09/27/19 09/28/19 04:35 04:35 04:55 WBC RBC Hgb Hct MCV MCH MCHC RDW Plt Count Neut % (Auto) Lymph % (Auto) Forrest % (Auto) Eos % (Auto) Baso % (Auto) Neut # (Auto) Lymph # (Auto) Forrest # (Auto) Eos # (Auto) Baso # (Auto) Sodium 140 Potassium 3.5 Chloride 108 H Carbon Dioxide 28 BUN 12 Creatinine 0.49 L Estimated GFR > 60.0 BUN/Creatinine Ratio 24.5 H Glucose 112 H Calcium 9.1 Magnesium Total Bilirubin 0.9 AST 369 H ALT 164 H Alkaline Phosphatase 49 Total Creatine Kinase 88021 H D 8725 H D Total Protein 6.1 L Albumin 3.5 Globulin 2.6 Albumin/Globulin Ratio 1.3 Hepatitis A IgM Ab Negative Hep Bs Antigen Negative Hep B Core IgM Ab Negative Hepatitis C Antibody <0.1 Hep C Ab Signal/Cutoff Comment 09/28/19 09/28/19 04:55 04:55 WBC 5.7 RBC 3.63 L Hgb 11.9 L Hct 35.9 L MCV 98.9 MCH 32.8 MCHC 33.1 RDW 13.2 Plt Count 86 L Neut % (Auto) 66.0 Lymph % (Auto) 16.8 L Forrest % (Auto) 15.6 H Eos % (Auto) 1.3 L Baso % (Auto) 0.3 Neut # (Auto) 3800 Lymph # (Auto) 1000 L Forrest # (Auto) 900 Eos # (Auto) 100 Baso # (Auto) 0 Sodium Potassium Chloride Carbon Dioxide BUN Creatinine Estimated GFR BUN/Creatinine Ratio Glucose Calcium Magnesium 1.6 Total Bilirubin AST ALT Alkaline Phosphatase Total Creatine Kinase Total Protein Albumin Globulin Albumin/Globulin Ratio Hepatitis A IgM Ab Hep Bs Antigen Hep B Core IgM Ab Hepatitis C Antibody Hep C Ab Signal/Cutoff Assessment & Plan Assessment & Plan narrative: Gracia Crow is a 59-year-old female with a past medical history significant for alcohol dependence with previous alcohol withdrawal and delirium tremens who presented to the ED after being found down by her father for unknown amount of time and was admitted for alcohol withdrawal with seizures and delirium tremens, rhabdomyolysis, and UTI. 1. Acute alcohol withdrawal, alcohol withdrawal seizure, and DTs, secondary to alcohol dependence, present on admission. Resolving. -Patient reportedly drinks over 1 L of hard liquor daily and prefers vodka. Patient was found with 150 bottles of vodka underneath her bed. She lives at home with her father who reportedly had not heard movement from her in 2 days and when he checked on her found her down and minimally responsive. Her father does not believe she was intentionally trying to stop drinking alcohol but rather ran out of alcohol and was unable to obtain more due to weakness. Patient has a history of alcohol withdrawal with DTs. No history of seizure activity previously. -CT brain without contrast demonstrated greater than expected cerebral volume loss for age, with resultant ventricular and sulcal prominence and periven tricular and deep white matter chronic small vessel ischemic changes with intracranial internal carotid artery atherosclerosis. -Alcohol level was undetectable at < 10 on admission. During previous ED visits, the patient has been coherent with an alcohol level of greater than 400. -Continue alcohol withdrawal/CIWA protocol. Continue seizure precautions as patient had likely two seizures in ED and patient received Keppra 500 mg IV x1 in ED which will not be continued as treating alcohol withdrawal. Continue Librium taper and decreased from 50 mg every 8 hours to twice daily. Continue lorazepam as needed per CIWA score. -Continue to monitor electrolytes and replete as necessary. 2. Wernicke-Korsakoff syndrome, likely chronic, present on admission. Improving. -Patient has confusion, confabulation, opthalmoplegia, nystagmus and ataxia. -CT brain without contrast demonstrated greater than expected cerebral volume loss for age, with resultant ventricular and sulcal prominence and periven tricular and deep white matter chronic small vessel ischemic changes with intracranial internal carotid artery atherosclerosis. Could consider MRI to assess mammilary body degeneration. -Ammonia level negative at 11. -Continue thiamine 500 mg IV 3 times daily for 2-3 days then will transition to thiamine 100 mg PO 3 times daily for 1-2 weeks and then 100 mg PO daily thereafter. -Continue physical and occupational therapy evaluation and treatment. 3. Acute rhabdomyolysis, present on admission. Resolving. -Possibly traumatic from fall and being down for unknown period of time. Patient with seizure activity that likely contributed. -Initial total creatinine kinase 50,155. Total creatinine kinase trending downward now 27107. -Continue IV fluids with normal saline at 80 mL/hr. Continue to encourage PO intake of fluids. 4. Acute kidney injury, present on admission. Resolved. -Secondary to prerenal azotemia from severe dehydration, rhabdomyolysis and urinary tract infection. -Initial creatinine 1.0. Baseline creatinine 0.5. Creatinine trending down now 0.56 with IV fluid resuscitation. -Continue IV fluids as noted above. -Avoid nephrotoxic agents. -Abdominal ultrasound did not demonstrate any abnormalities of kidneys. -Continue to monitor creatinine daily. 5. Acute E coli urinary tract infection, present on admission. Resolving. -Urine culture grew E coli resistant to ampicillin and sulbactam. -Received cefepime 2 g IV x1 in the ED. Continue ceftriaxone 1 g IV daily until time of discharge. 6. Acute likely on chronic alcoholic hepatitis, present on admission. Resolvi ng. -Initial LFTs severely elevated in alcoholic induced pattern of 2:1 AST:ALT with: Total bili elevated at 2.4, AST severely elevated at 1116, ALT elevated at 316 and alk-phos normal at 75. LFTs improving with IV fluid hydration and will continue as IV fluids as above. -Abdominal ultrasound demonstrated normal liver size and homogeneous in echotexture. -Acetaminophen level negative at < 10 and salicylate level negative at 1.0. Urine drug screen negative. Alcohol level undetectable < 10. -Acute hepatitis panel negative. -Continue to monitor LFTs daily. 7. Acute hypernatremia, present on admission. Resolved. -Secondary to severe dehydration as evidence by concentrated labs and rhabdomyo lysis. -Initial sodium level 147 and increased to 149 after 1 L NS bolus in ED. Sodium level normalized with IV fluid hydration now 144. Continue IV fluid hydration as above. -Continue to monitor sodium level daily. 8. Thrombocytopenia, unclear acuity but likely chronic, present on admission. Active. -Secondary to chronic alcohol dependence and bone marrow suppression. -Initial platelet level low at 87 and trended down to 69 and now trending up to 86. Held chemical VTE prophylaxis. No overt signs of bleeding. -Continue to monitor platelet count daily. 9. Ruled out sepsis. -COVID-19 negative. Chest x-ray did not demonstrate any acute cardiopulmonary process. Afebrile. Blood cultures have no growth to date. -Patient's lactate was elevated at 5.4 and quickly resolved with IV fluid re suscitation. Patient's lactic acid was elevated due to seizures and being found down for unknown likely prolonged period of time. -Patient has urinary tract infection but does not appear septic and will continue to treat urinary tract infection as above. Code status: Full code VTE prophylaxis: SCDs, chemical prophylaxis relatively contraindicated due to thrombocytopenia Disposition: Patient will likely discharge in next 1-2 days likely home with home health with outpatient alcohol treatment versus inpatient alcohol treatment once mobilizing well.
[2019-09-28] MEDS: ENOXAPARIN 40 MG/0.4 ML SYRINGE SUBCUT (13:54)
[2019-09-28] MEDS: POTASSIUM CHLORIDE 30 MEQ in SODIUM CHLORIDE 0.9% 250 ML 88.33 ML IV (13:54)
--- NOTE | 2019-09-28 14:33 | PT.IPTN ---
Current Diagnoses Alcohol dependence with withdrawal delirium (09/26/19) Physical Therapy Treatment Note M2 PT-IP Current Condition Start: 09/27/19 10:23 Freq: NEEDED Status: Active Protocol: Document 09/27/19 11:59 AW (Rec: 09/27/19 12:41 AW [id number]) Physical Therapy Current Condition Current Condition Evaluation Date 09/27/19 Treatment Diagnosis alcohol withdrawal seizure; impaired mobility with ataxic gait Onset Date 09/26/19 Precautions Other Precautions seizure precautions M3 PT-IP Subjective Start: 09/27/19 10:23 Freq: NEEDED Status: Active Protocol: Document 09/28/19 14:18 CLB (Rec: 09/28/19 15:14 CLB [email or web address]) Subjective Physical Therapy Visit Type Type Treatment Note Visit Start Time 14:18 Visit Stop Time 14:33 Total Visit Minutes 15 Notes Co-treat with OT Number of ENVIRONMENTAL PROTECTION GEOLOGIST Visits 1 Physical Therapy Visit Comments Patient Comments Pt willing to participate with therapy M4 PT-IP Mobility and Gait Start: 09/27/19 10:23 Freq: NEEDED Status: Active Protocol: Document 09/28/19 14:18 CLB (Rec: 09/28/19 15:14 CLB [email or web address]) PT-Bed Mobility Assessment Supine to Sit Supine to Sit Contact Guard Assistance,Head of Bed Elevated Scooting Scooting to Edge of Bed Contact Guard Assistance PT-Transfer Assessment Sit to and From Stand Sit to and from Stand Contact Guard Assistance,1 Person Assistance Equipment Transfer Assistive Device Gait Belt,Front Wheeled Walker Transfers Transfer Destination Toilet,Bedside Commode Transfer Technique Stand Step Pivot Transfer Ability Level of Assist Moderate Assistance,2 Person Assistance Comments Mobility Comments Pt required CGA for bed mobility and sit-stand from bed, pt then required Mod A x2 with cues for sequencing and taking bigger steps as pt ambulated to BR. Pt required assist with walker management and Mod A x2 due to posterior lean. Pt required cues and walker management during turning to position pt in front of toilet. Pt able to doff brief requiring cues and extra time. Pt required assist with pericare provided by OT. Pt then stood from toilet with CGA and transferred to [facility] in shower with Mod A x2 and IT ARCHITECT. Pt was given cues to reach back for arms of commode for safety but sat w/o comprehending cues. Pt left in shower with OT and REGISTRATION REPRESENTATIVE present. Gait Assessment Gait Gait Assistance Required: Moderate Assistance,2 Person Assist Assistive Devices Assistive Device Gait Belt,Front Wheeled Walker Gait Deviations General Gait Pattern Ataxic,Decreased Stride Length ,Decreased Feet Clearance, Flexed Trunk,Wide Based Gait Factors Limiting Gait Function Factors Limiting Gait Function Decreased Activity Tolerance, Decreased Sensation,Decreased Strength,Difficulty Following Directions,Incoordination,Pain ,Poor Balance,Poor Safety Awareness Comments Gait Comments See mobility comments for details. Stair Climbing Assessment Comments Stair Climbing Comments Not assessed. Pt unable at this time. PT-Balance Assessment Sitting Balance and Reactions Static Sitting Balance Ability Poor Dynamic Sitting Balance Ability Poor Standing Balance and Reactions Static Standing Balance Ability Poor Dynamic Standing Balance Ability Poor Device Used FWW M5 PT-IP Objective Assessments Start: 09/27/19 10:23 Freq: NEEDED Status: Active Protocol: Document 09/27/19 11:59 AW (Rec: 09/27/19 12:41 AW [id number]) Orientation Orientation/Cognition Level of Alertness Confusional State Orientation Name,Place Language Function Ability Word Finding Difficulties Safety Awareness Decreased Safety Awareness Memory Description Short Term Impaired Comments Pt was oriented to self and place only. She had word finding difficulty and had significant challenges attending to task. She had difficulty following single- step instructions. Gross Range of Motion Lower Extremity ROM Assessment Bilaterally Impaired Impairments B ankles lack dorsiflexion past neutral. Strength Lower Extremity Strength Assessment Bilaterally Impaired Hip 3-/5 Knee 4-/5 Ankle 4-/5 Coordination Assessment Gross Coordination Gross Coordination Impaired Assessment Finger to Nose Test Severe Impairment Pronation/Supination Test Activity Impossible Foot Tapping Test Severe Impairment Coordination Comments Ataxic gait. Impaired motor planning and execution. Sensation Assessment Sensation Gross Sensation Right UE Impaired,Left UE Impaired,Right LE Impaired, Left LE Impaired Light Touch Impaired Proprioception (Position) Impaired Comments Sensation Comments Proprioception impaired with testing of bilateral ankles Muscle Tone Muscle Tone WNL No Muscle Tone Location Bilateral Lower Extremity Type of Tone Hypertonicity Severity of Tone Moderate Manifistation of Tone Resting Tremors,Ataxia M6 PT-IP Treatment Start: 09/27/19 10:23 Freq: NEEDED Status: Active Protocol: Document 09/27/19 11:59 AW (Rec: 09/27/19 12:41 AW [id number]) Physical Therapy Treatment Education Education Provided Precautions,Safety Other Treatments Other Treatment Performed Provided education on role of PT, plan of care, benefits of out of bed activity for alertness and for maintaining/ improving strength. M7 PT-IP Assessment and Plan Start: 09/27/19 10:23 Freq: NEEDED Status: Active Protocol: Document 09/28/19 14:18 CLB (Rec: 09/28/19 15:14 CLB [email or web address]) PT Summary Assessment and Plan Potential Rehabilitation Potential Fair Status of Condition at Evaluation Evolving Summary Impairments Pain,ROM,Strength,Balance, Coordination,Sensation, Cognition,Bed Mobility, Transfers,Gait,Activity Tolerance Assessment Summary Pt has improved with bed mobility yet still continues to required Mod A x2 for ambulation with FWW. Pt represents with lateral lean and requires Max cuing for step sequencing and requires assist managing walker during gait. Pt is unsafe during gait and transfers at this time and will require further PT while in acute care and will benefit from SNF rehab at discharge. Goals Bed Mobility Goal Standby Assistance Transfer Goal Contact Guard Assistance,Front Wheeled Walker Gait Goal Contact Guard Assistance,Front Wheel Walker Gait Distance 75 Other Goals - up/down 12 steps SBA Days to Meet Goals 20 Frequency of Treatment Frequency Of Treatment Once a Day Treatment Plan Physical Therapy Treatment Plan Bed Mobility Training,Transfer Training,Gait Training, Therapeutic Exercise,Balance Retraining,Discharge Planning, Neuromuscular Re-ed, Coordination Retraining Other Recommendations and Next Treatment bed mobility, transfers, gait Focus if able Recommendations To Nursing Amount of Assist Needed 2 Person Assist Discharge Recommendations PT Discharge Recommendations SNF Rehab Transportation Needs at Discharge Wheelchair/Cabulance,Stretcher /Ambulance
--- NOTE | 2019-09-28 14:47 | OT.IP.TRT ---
Current Diagnoses Alcohol dependence with withdrawal delirium (09/26/19) Occupational Therapy Treatment Note M2 OT-IP Current Condition Start: 09/27/19 14:41 Freq: Status: Active Protocol: Document 09/27/19 14:42 CGR (Rec: 09/27/19 15:00 CGR [email or web address]) Occupational Therapy Current Condition Current Condition Evaluation Date 09/27/19 Treatment Diagnosis ETOH withdrawl Diagnosis Onset Date 09/26/19 M3 OT- IP Subjective and Pain Start: 09/27/19 14:41 Freq: Status: Active Protocol: Document 09/28/19 14:17 [facility] (Rec: 09/28/19 16:01 [facility] [id number]) OT- Subjective Occupational Therapy Visit Type Type Treatment Note Visit Start Time 14:17 Visit Stop Time 14:47 Total Visit Minutes 30 Occupational Therapy Visit Comments Patient Comments Pt agreeable to shower. PLANT ETIOLOGIST and nursing aid present to assist due to pt needing two person for mobility . OT Pain Assessment Pain When Pain Assessed At Rest Pain Present Pain Present Denied Pain M4 OT- IP ADL's Start: 09/27/19 14:41 Freq: Status: Active Protocol: Document 09/28/19 14:17 [facility] (Rec: 09/28/19 16:01 [facility] [id number]) OT ADL-Toileting General Evaluation Toileting Ability Moderate Assistance Areas Needing Assistance Manage Clothing,Perform Perineal Hygiene Comments OT Toileting Comments MODA for completeness for hygiene. OT ADL-Bathing Bathing Type Bathing Type Shower General Evaluation Bathing Ability Maximal Assistance Areas Needing Assistance Wash/Dry Back,Wash/Dry Perineal Area,Wash/Dry Lower Extremities Devices Bathing Equipment Hand Held Shower Sprayer, Shower Chair with Arms,Grab Bars Comments OT Bathing Comments Pt needing assist to wash her back, assist for pericare needs and to wash her lower legs due to unable to reach at this time. Pt needing heavy use of grab bars to stand and MODA x1 to stand while therapist able to assist for hygiene needs as well. M5 OT- IP IADL's Start: 09/27/19 14:41 Freq: Status: Active Protocol: Document 09/27/19 14:42 CGR (Rec: 09/27/19 15:00 CGR [email or web address]) OT-Instrumental Activities of Daily Living Deficits IADL Deficits Identified Deficits Home Safety Awareness Awareness of Need for Assistance at Home Decreased Awareness Ability to Problem Solve Emergency Unable to Problem Solve Situations M6 OT- IP Functional Cognition Start: 09/27/19 14:41 Freq: Status: Active Protocol: Document 09/28/19 14:17 [facility] (Rec: 09/28/19 16:01 [facility] [id number]) Cognitive Factors Limiting Selfcare Function Cognitive Ability Level of Alertness Alert Patient Orientation Name Attention Span Ability Capable of Focused Attention, Capable of Sustained Attention Ability to Follow Commands Able to Follow One Step Commands with Increased Time, Able to Follow One Step Commands with Repetition Safety Awareness Decreased Ability to Apply Precautions,Underestimates Need for Assistance Cognitive Comments Cognitive Assessment Comments Pt able to follow step by step commands for showering needs and needing assist to help sequence through the task for completeness. M7 OT- IP Mobility and Balance Start: 09/27/19 14:41 Freq: Status: Active Protocol: Document 09/28/19 14:17 [facility] (Rec: 09/28/19 16:01 [facility] [id number]) OT- Bed Mobility Assessment Rolling Type of Rolling Roll to Right Level of Assistance Minimal Assistance,Bedrails OT-Transfer Assessment Sit to and From Stand Sit to and from Stand Moderate Assistance,2 Person Assistance Transfers Transfer Ability Moderate Assistance,2 Person Assistance Technique Transfer Destination Bed,Shower Stall,Toilet Transfer Technique Stand Step Pivot Devices Transfer Assistive Devices Gait Belt,Front Wheeled Walker Comments Mobility Comments Pt needing assist for weight shifting, assist to guide FWW, and vc to take larger steps. Pt tends to lean backwards when upright. Therefore pt needing MODA X 2 for mobility at this time. Pt just needing ANJEL to assist with her legs to get out of the bed with HOB up and use of bed rails. OT- Balance Assessment Sitting Balance and Reactions Static Sitting Balance Ability Good Dynamic Sitting Balance Ability Fair Standing Balance and Reactions Static Standing Balance Ability Poor Dynamic Standing Balance Ability Poor M8 OT- IP Objective Assessments Start: 09/27/19 14:41 Freq: Status: Active Protocol: Document 09/27/19 14:42 CGR (Rec: 09/27/19 15:00 CGR [email or web address]) OT Gross Range of Motion Upper Extremity Range of Motion Assessment Within Functional Limits OT Strength Upper Extremity Strength Assessment Within Functional Limits Comments Strength Comments 4/5 OT- Coordination Assessment Upper Extremity Finger to Nose Test Within Functional Limits Finger Tapping Test Within Functional Limits OT-Muscle Tone Assessment Muscle Tone WNL Yes M9 OT- IP Assessment and Plan Start: 09/27/19 14:41 Freq: Status: Active Protocol: Document 09/28/19 14:17 [facility] (Rec: 09/28/19 16:01 [facility] [id number]) OT Summary Assessment and Plan Potential Rehabilitation Potential Good Analytic Complexity at Evaluation Low Summary OT Impairments Strength,Balance,Coordination, Functional Cognition, Functional Mobility,Self- Feeding,Grooming,Dressing, Toileting,Bathing,Toilet Transfers,Shower Transfers, Activity Tolerance Progress Towards Goals Progressing Toward Goals Assessment Summary Pt following directions better and able to participate in a shower, however still needing cues to sequence through the task. Pt still unsteady on her feet and requiring two person assist for mobility needs. Pt would benefit from skilled rehab prior to going home as pts current level to great for her 85 year old father to take care of. Goals Self-Feeding Goal Independent Grooming Goal Independent Dressing Goal Independent Toileting Goal Independent Bathing Goal Independent Toilet Transfer Goal Independent Shower Transfer Goal Independent Days to Meet Goals 9 Frequency of Treatment Frequency Of Treatment Once a Day Treatment Plan OT Treatment Plan ADL Training,Functional Cognition Training,Functional Mobility,Patient/Family Education,Discharge Planning Other Treatment Recommendations and Next SLUMS when cleared of ETOH Treatment Focus Discharge Recommendations OT Discharge Recommendations SNF Rehab Other Discharge Recommendations Pending progress and caregiver training, possible to go home . Home Equipment Needs TBD Transportation Needs at Discharge Wheelchair/Cabulance
--- NOTE | 2019-09-28 15:21 | CM.DPC ---
DCP/continued: Reviewed chart. Spoke with Dr. Santana this AM. She anticipates that patient will be medically cleared for discharge tomorrow 09-29-19? Met with patient explained role. Patient appears much more alert today. Notified patient that BASE FILLER spoke with her Father yesterday. Notified patient that her Father reports that her car is fine and in the garage. Patient reports that she is relieved to hear this? Patient continues to indicate that her car and her Father's was taken at gun point. Father reports that this is not true. Patient indicates to BASE FILLER that she plans to d/c home with her Father when medically stable. Patient refusing inpatient treatment of any kind. Patient has no desire to go to treatment for alcoholism or SNF for physical rehabilitation. Therapy following. Patient also does not want Home Health. Patient believes that it usually takes her 3-5dys to detox. Once completed patient does not anticipate any issues with going home. Patient not interested in A.A. meetings states makes me want to drink. Patient is agreeable to counseling but prefers 1 on 1 rather than group. Provided patient with [facility] brochure and informed her that she can call anytime and set up services. Also notified her that BASE FILLER can hopefully follow up tomorrow 09-29-19. Patient appreciative. Patient denies any suicidal or homicidal thoughts. P: Anticipate home with Father when stable. Patient refusing any other services at this time. Resources provided. If BASE FILLER can follow up tomorrow and assist in scheduling first appointment as outpatient that would be helpful. LAURA Henriquez
[2019-09-28] MEDS: FAMOTIDINE 20 MG TABLET 40 MG PO (18:15)
[2019-09-28] MEDS: CALCIUM CARBONATE 500 MG TAB PO (18:15)
[2019-09-28] MEDS: CEFTRIAXONE 1 GM/50 ML FROZ.PIGGY IV (19:55)
[2019-09-29] VITALS (9 sets, daily range): BP systolic 117–156; BP diastolic 66–87; PULSE 78–92; RESP 15–20; TEMP 35.8–37.2; O2SAT 95–100
[2019-09-29 04:59] LABS: Add Manual Diff / Slide Review NO; Basophils Absolute Auto 0 /uL (0-100); Basophils Percent Auto 0.5 % (0-2); Eosinophils Absolute Auto 100 /uL (0-450); Eosinophils Percent Auto 1.9 % (2-4); Hematocrit 33.3 % (36-46); Hemoglobin 11.2 g/dL (12.0-16.0); Lymphocytes Absolute Auto 600 /uL (1100-4500); Lymphocytes Percent Auto 15.9 % (25-40); Mean Corpuscular HGB Conc 33.5 % (30-36); Mean Corpuscular Hemoglobin 33.2 PG (26-34); Mean Corpuscular Volume 98.9 fL (80-100); Monocytes Absolute Auto 700 /uL (0-900); Monocytes Percent Auto 19.9 % (3-14); Neutrophils Absolute Auto 2300 /uL (1500-7000); Neutrophils Percent Auto 61.8 % (50-75); Platelet Count 91 X10^3/uL (150-400); Red Blood Cell Count 3.37 X10^6/uL (4.0-5.2); Red Cell Distribution Width 13.1 % (11.6-14.8); White Blood Cell Count 3.8 X10^3/uL (4.5-11.0)
[2019-09-29 05:09] LABS: Alanine Aminotransferase 153 IU/L (<35); Albumin 3.2 g/dL (3.5-5.0); Albumin Globulin Ratio 1.2 (1.0-2.8); Alkaline Phosphatase 44 U/L (38-126); Aspartate Aminotransferase 290 IU/L (14-36); BUN Creatinine Ratio 20.8 (6-22); Bilirubin Total 0.6 mg/dL (0.2-1.3); Blood Urea Nitrogen 10 mg/dL (7-17); Calcium 8.6 mg/dL (8.4-10.2); Carbon Dioxide 31 mmol/L (22-32); Chloride 106 mmol/L (98-107); Estimated Glomerular Filt Rate > 60.0 mL/min (>60); Globulin 2.6 g/dL (1.7-4.1); Glucose 116 mg/dL (70-100); HEMOLYSIS < 15 (0-50); Magnesium 1.6 mg/dL (1.6-2.3); Potassium 3.6 mmol/L (3.4-5.1); Sodium 138 mmol/L (137-145); Total Protein 5.8 g/dL (6.3-8.2)
[2019-09-29 05:26] LABS: Creatine Kinase 6065 U/L (30-135)
[2019-09-29] MEDS: MAGNESIUM CHLORIDE 64 MG TABLET 128 MG PO (09:39)
[2019-09-29] MEDS: THIAMINE 500 MG in SODIUM CHLORIDE 0.9% 50 ML 220 ML IV ×2 (09:40→16:24)
[2019-09-29] MEDS: POTASSIUM CHLORIDE 20 MEQ TAB 40 MEQ PO (09:45)
[2019-09-29] MEDS: FOLIC ACID 1 MG TABLET PO (09:45)
[2019-09-29] MEDS: MULTIVITAMIN 1 TABLET 1 TAB PO (09:45)
[2019-09-29] MEDS: chlordiazePOXIDE 25 MG CAPSULE PO ×2 (09:45→20:23)
--- NOTE | 2019-09-29 10:20 | OT.IP.TRT ---
Current Diagnoses Alcohol dependence with withdrawal delirium (09/26/19) Occupational Therapy Treatment Note M2 OT-IP Current Condition Start: 09/27/19 14:41 Freq: Status: Active Protocol: Document 09/27/19 14:42 CGR (Rec: 09/27/19 15:00 CGR [email or web address]) Occupational Therapy Current Condition Current Condition Evaluation Date 09/27/19 Treatment Diagnosis ETOH withdrawl Diagnosis Onset Date 09/26/19 M3 OT- IP Subjective and Pain Start: 09/27/19 14:41 Freq: Status: Active Protocol: Document 09/29/19 10:37 CGR (Rec: 09/29/19 11:00 CGR [email or web address]) OT- Subjective Occupational Therapy Visit Type Type Progress Note Visit Start Time 09:55 Visit Stop Time 10:20 Total Visit Minutes 25 Occupational Therapy Visit Comments Patient Comments My daddy is suppose to bring my purse so that I can put on some make up. OT Pain Assessment Pain When Pain Assessed At Rest Pain Present Pain Present Denied Pain M4 OT- IP ADL's Start: 09/27/19 14:41 Freq: Status: Active Protocol: Document 09/29/19 10:37 CGR (Rec: 09/29/19 11:00 CGR [email or web address]) OT [id number] Comments OT Self-Feeding Comments Not meal time OT ADL-Grooming Comments OT Grooming Comments Pt declined, states that her father is to bring her purse with her sink care items, tooth brush, and a comb and she would prefer to use her own. OT ADL-Oral Care Comments Oral Care Comments Pt declined, states that her father is to bring her purse with her sink care items, tooth brush, and a comb and she would prefer to use her own. OT ADL-Dressing Comments OT Dressing Comments Not performed OT ADL-Toileting General Evaluation Toileting Ability Contact Guard Assistance Areas Needing Assistance Manage Clothing Comments OT Toileting Comments Pt was able to perform toileting with contact guard assist but needed VC for pt to sequence through the tasks. OT ADL-Bathing Comments OT Bathing Comments Not performed M5 OT- IP IADL's Start: 09/27/19 14:41 Freq: Status: Active Protocol: Document 09/27/19 14:42 CGR (Rec: 09/27/19 15:00 CGR [email or web address]) OT-Instrumental Activities of Daily Living Deficits IADL Deficits Identified Deficits Home Safety Awareness Awareness of Need for Assistance at Home Decreased Awareness Ability to Problem Solve Emergency Unable to Problem Solve Situations M6 OT- IP Functional Cognition Start: 09/27/19 14:41 Freq: Status: Active Protocol: Document 09/29/19 10:37 CGR (Rec: 09/29/19 11:00 CGR [email or web address]) Cognitive Factors Limiting Selfcare Function Cognitive Ability Level of Alertness Alert Patient Orientation Name,Day of Week,Place Cognitive Tests UMS Pt participated in UMS on this date. Pt scored 1430. Pt missed the year, stating 2020 . She was unable to do simple subtraction, named 10 animals in 1 minute (full score requires 15+), remembered 3 of the 5 objects for STM, was unable to perform any of the working memory tasks, was unable to correctly lable a clock, and was able to answer 2 of the 4 listening comprehension questions. Cognitive Comments Cognitive Assessment Comments on the SLUMS indicates a significant cognitive deficit . Pt is likley to perform better as she continues to cognitively clear but it is likley that her baseline cognition has been impacted by her lifestyle. OT- Vision and Hearing OT- Hearing Assessment OT- Hearing Assessment WFL OT- Vision Assessment Vision Assessment Comments Pt had difficulty following commands to perform M7 OT- IP Mobility and Balance Start: 09/27/19 14:41 Freq: Status: Active Protocol: Document 09/29/19 10:37 CGR (Rec: 09/29/19 11:00 CGR [email or web address]) OT-Transfer Assessment Sit to and From Stand Sit to and from Stand Contact Guard Assistance, Minimal Assistance Transfers Transfer Ability Contact Guard Assistance, Minimal Assistance Technique Transfer Destination Chair,Toilet Transfer Technique Stand Step Pivot Devices Transfer Assistive Devices Gait Belt,Front Wheeled Walker Comments Mobility Comments Pt initially stood from chair with quick but uncoordiated movements and required max VC and min a to maintain safety with mobility. Pt then ambulated into the bathroom but again had difficulty using the walker safely to turn and sit on the toilet. OT- Gait Assessment Gait Gait Assistance Required: Contact Guard Assist,Minimum Assistance Assistive Devices Assistive Device Gait Belt,Front Wheeled Walker OT- Balance Assessment Sitting Balance and Reactions Static Sitting Balance Ability Good Dynamic Sitting Balance Ability Fair M8 OT- IP Objective Assessments Start: 09/27/19 14:41 Freq: Status: Active Protocol: Document 09/27/19 14:42 CGR (Rec: 09/27/19 15:00 CGR [email or web address]) OT Gross Range of Motion Upper Extremity Range of Motion Assessment Within Functional Limits OT Strength Upper Extremity Strength Assessment Within Functional Limits Comments Strength Comments 4/5 OT- Coordination Assessment Upper Extremity Finger to Nose Test Within Functional Limits Finger Tapping Test Within Functional Limits OT-Muscle Tone Assessment Muscle Tone WNL Yes M9 OT- IP Assessment and Plan Start: 09/27/19 14:41 Freq: Status: Active Protocol: Document 09/29/19 10:37 CGR (Rec: 09/29/19 11:00 CGR [email or web address]) OT Summary Assessment and Plan Potential Rehabilitation Potential Good Analytic Complexity at Evaluation Low Summary OT Impairments Strength,Balance,Coordination, Functional Cognition, Functional Mobility,Self- Feeding,Grooming,Dressing, Toileting,Bathing,Toilet Transfers,Shower Transfers, Activity Tolerance Progress Towards Goals Progressing Toward Goals Assessment Summary Pt is progressing with therapy but still requires physical assist for safe mobiltiy and Vc for sequencing activities at this time. Pt would benefit from SNF. Goals Self-Feeding Goal Independent Grooming Goal Independent Dressing Goal Independent Toileting Goal Independent Bathing Goal Independent Toilet Transfer Goal Independent Shower Transfer Goal Independent Days to Meet Goals 8 Frequency of Treatment Frequency Of Treatment Once a Day Treatment Plan OT Treatment Plan ADL Training,Functional Cognition Training,Functional Mobility,Patient/Family Education,Discharge Planning Other Treatment Recommendations and Next Functional ADLs with mobility. Treatment Focus SLUMS again in a few days. Discharge Recommendations OT Discharge Recommendations SNF Rehab Other Discharge Recommendations Pending progress and caregiver training, possible to go home . Home Equipment Needs TBD Transportation Needs at Discharge Private Vehicle
[2019-09-29] MEDS: ENOXAPARIN 40 MG/0.4 ML SYRINGE SUBCUT (10:44)
--- NOTE | 2019-09-29 11:35 | PT.IPTN ---
Addendum entered and electronically signed by Taya Hernandez, LISETTE 09/29/19 13:23: DC needs: SNF vs. required need of 14/10 physical assist and HHPT Original Note: Current Diagnoses Alcohol dependence with withdrawal delirium (09/26/19) Physical Therapy Treatment Note M2 PT-IP Current Condition Start: 09/27/19 10:23 Freq: NEEDED Status: Active Protocol: Document 09/27/19 11:59 AW (Rec: 09/27/19 12:41 AW [id number]) Physical Therapy Current Condition Current Condition Evaluation Date 09/27/19 Treatment Diagnosis alcohol withdrawal seizure; impaired mobility with ataxic gait Onset Date 09/26/19 Precautions Other Precautions seizure precautions M3 PT-IP Subjective Start: 09/27/19 10:23 Freq: NEEDED Status: Active Protocol: Document 09/29/19 11:11 SP (Rec: 09/29/19 13:20 SP [email or web address]) Subjective Physical Therapy Visit Type Type Treatment Note Visit Start Time 11:11 Visit Stop Time 11:35 Total Visit Minutes 24 Number of RECYCLING SORTER Visits 2 Physical Therapy Visit Comments Patient Comments Pt willing to participate with PT. Therapy Pain Assessment Pain Present Pain Present Denied Pain M4 PT-IP Mobility and Gait Start: 09/27/19 10:23 Freq: NEEDED Status: Active Protocol: Document 09/29/19 11:11 SP (Rec: 09/29/19 13:20 SP [email or web address]) PT-Bed Mobility Assessment Rolling Type of Rolling Roll to Right,Roll to Left Level of Assist Standby Assistance Sit to Supine Sit to Supine Contact Guard Assistance, Bedrails Scooting Scooting to Edge of Bed Contact Guard Assistance PT-Transfer Assessment Sit to and From Stand Sit to and from Stand Contact Guard Assistance, Minimal Assistance,1 Person Assistance,Use of Upper Extremities Equipment Transfer Assistive Device Bed Rail,Front Wheeled Walker Transfers Transfer Destination Bed,Chair,Toilet Transfer Technique Pt ambulated using FWW Transfer Ability Level of Assist Moderate Assistance,1 Person Assistance,Use of Upper Extremities Comments Mobility Comments Pt was seated in chair when arrived, chair alarm armed. Sit to stand CGA- min A with use of BUE, unsteady retro COG over SOFIA on feet requiring Mod A for support and cuing for wt shift forward, initally using SPC and difficulty with understanding proper patterning with cues so changed to using FWW. Pt was able to ambulate using FWW chair to toilet approx 8 ft with Min-Mod A of 1 person and Max cuing for body COG forward, R foot clearance with support to recover from continuous retro and R lean and FWW obstacle mgt of doorway during gait for safety . Pt required Max cuing and assist for FWW pivot turning in bathroom, backing up to toilet fully then using grab bar for self balance support before using other hand to complete brief mgt, Min A for balance support throught gait belt required to slow descent to sit on toilet. Pt required SBA durign seated on toilet due little unsteady sitting balance on toilet and cued for continued use of R grab bar for self support. Pt was able to complete self hygiene mgt in sitting herself. Sit to stand Min A of 1 using R grab bar and LUE on FWW to complete upright posture then brief mgt LUE. Pt required Min- Mod A to walk to the sink and maintain balance at sink with 1 UE heavy industrial equipment mechanic on sink for self support and Max cuing for forward posture within FWW and positioning forward to sink. Pt required TORRES MARTINEZ with cuing for how to use the soap and water dispenser and Mod A for standing balance. Pt was able to 180 deg pivot turn using FWW to walk from sink to w/c in hallway Mod A for balance recovery control: wide base and difficulty RLE foot clearance and stride with retrol lean approx 10 ft, provided cues but no change in gait deviations. RECYCLING SORTER wheeled patient down to stairs to assess for ability to complete 24 stairs has at home to go down to her bedroom. Pt completed 12/15 stairs before BUE/ BUE became shaky requiring sitting rest due to decreased strength and endurance. Pt used BHR with Min A x1 step to gait leading RLE intially with noted difficulty hip/ knee flexion to place on next step ascending, R knee buckled x1 with Mod A for recovery so educated to lead LLE step to gait with improvement, RLE leading step to patterning descending Min A. Pt required seated rest in w/c after 9 stairs due to shakiness in BUE / BLE with flexion trunk posture. RECYCLING SORTER wheeled patient back to room and patient was able to sit to stand and walk approx 5 ft to side of the bed Min- Mod A to counteract retro leaning and decrease R foot clearance gait usign FWW with cuing for obstacle mgt around and side of bed. Sit to supine SBA with cuing cuing for centering herself in bed for safety away from EOB. Pt had call light and all needs in reach, bed alarm armed before left. RECYCLING SORTER discussed amount of physical support required during tx with patient, nurse, Dr. Santana and recommending SNF at this time. Pt would benefit from skilled therapy to improved strength, balance in standing, is requiring FWW and Mod A during standing mobilty at this time . Pt does not have a FWW at home and will need one if required at time of and safe DC home when medically stable. Gait Assessment Gait Gait Assistance Required: Moderate Assistance,1 Person Assist Distance (Feet) 20 Able to Maintain Weight Bearing Status Yes During Gait Assistive Devices Assistive Device Gait Belt,Front Wheeled Walker Gait Deviations General Gait Pattern Ataxic,Decreased Stride Length ,Decreased Feet Clearance, Flexed Trunk,Wide Based Gait Factors Limiting Gait Function Factors Limiting Gait Function Decreased Activity Tolerance, Decreased Sensation,Decreased Strength,Difficulty Following Directions,Incoordination,Pain ,Poor Balance,Poor Safety Awareness Comments Gait Comments See mobility comments for details. Stair Climbing Assessment Evaluation Level of Assist On Stairs Minimal Assistance,Moderate Assistance,1 Person Assistance Devices Stair Climbing Assistive Devices Left Railing,Right Railing Technique/Endurance Stair Climbing Direction Ascend and Descend Stair Climbing Technique Step to Step Number of Steps Climbed 3 Stair Climbing Set # Repetitions (reps) 3 Comments Stair Climbing Comments Pt only able to complete 12/15 stairs Min A of 1. See mobility comments. PT-Balance Assessment Sitting Balance and Reactions Static Sitting Balance Ability Fair Dynamic Sitting Balance Ability Poor Standing Balance and Reactions Static Standing Balance Ability Poor Dynamic Standing Balance Ability Poor Device Used FWW M5 PT-IP Objective Assessments Start: 09/27/19 10:23 Freq: NEEDED Status: Active Protocol: Document 09/27/19 11:59 AW (Rec: 09/27/19 12:41 AW [id number]) Orientation Orientation/Cognition Level of Alertness Confusional State Orientation Name,Place Language Function Ability Word Finding Difficulties Safety Awareness Decreased Safety Awareness Memory Description Short Term Impaired Comments Pt was oriented to self and place only. She had word finding difficulty and had significant challenges attending to task. She had difficulty following single- step instructions. Gross Range of Motion Lower Extremity ROM Assessment Bilaterally Impaired Impairments B ankles lack dorsiflexion past neutral. Strength Lower Extremity Strength Assessment Bilaterally Impaired Hip 3-/5 Knee 4-/5 Ankle 4-/5 Coordination Assessment Gross Coordination Gross Coordination Impaired Assessment Finger to Nose Test Severe Impairment Pronation/Supination Test Activity Impossible Foot Tapping Test Severe Impairment Coordination Comments Ataxic gait. Impaired motor planning and execution. Sensation Assessment Sensation Gross Sensation Right UE Impaired,Left UE Impaired,Right LE Impaired, Left LE Impaired Light Touch Impaired Proprioception (Position) Impaired Comments Sensation Comments Proprioception impaired with testing of bilateral ankles Muscle Tone Muscle Tone WNL No Muscle Tone Location Bilateral Lower Extremity Type of Tone Hypertonicity Severity of Tone Moderate Manifistation of Tone Resting Tremors,Ataxia M6 PT-IP Treatment Start: 09/27/19 10:23 Freq: NEEDED Status: Active Protocol: Document 09/29/19 11:11 SP (Rec: 09/29/19 13:20 SP [email or web address]) Physical Therapy Treatment Education Education Provided Precautions,Safety M7 PT-IP Assessment and Plan Start: 09/27/19 10:23 Freq: NEEDED Status: Active Protocol: Document 09/29/19 11:11 SP (Rec: 09/29/19 13:20 SP [email or web address]) PT Summary Assessment and Plan Potential Rehabilitation Potential Fair Status of Condition at Evaluation Evolving Summary Impairments Pain,ROM,Strength,Balance, Coordination,Sensation, Cognition,Bed Mobility, Transfers,Gait,Activity Tolerance Assessment Summary Pt has improved with bed mobility SBA yet still continues to required Mod A x1 for ambulation with FWW. Pt represents with lateral and retro lean, requires Max cuing for step sequencing, foot clearance and requires assist managing walker during gait. Pt is unsafe during gait and transfers at this time and will require further PT while in acute care and will benefit from SNF rehab at discharge. Goals Bed Mobility Goal Standby Assistance Transfer Goal Contact Guard Assistance,Front Wheeled Walker Gait Goal Contact Guard Assistance,Front Wheel Walker Gait Distance 75 Other Goals - up/down 12 steps SBA Days to Meet Goals 20 Frequency of Treatment Frequency Of Treatment Once a Day Treatment Plan Physical Therapy Treatment Plan Bed Mobility Training,Transfer Training,Gait Training, Therapeutic Exercise,Balance Retraining,Discharge Planning, Neuromuscular Re-ed, Coordination Retraining Other Recommendations and Next Treatment bed mobility, transfers, gait, Focus 12-24 stair mgt Recommendations To Nursing Amount of Assist Needed 1 Person Assist Discharge Recommendations PT Discharge Recommendations Home with 14/10 Assist,Home Health,SNF Rehab Other Discharge Recommendations At this time recommending SNF vs 14/10 physical assistance support at home required at this time Equipment Needed for Home Before FWW Discharge Transportation Needs at Discharge Wheelchair/Cabulance,Stretcher /Ambulance
--- NOTE | 2019-09-29 13:43 | PM.PN.1 ---
Subjective Subjective Date Patient Seen: 09/29/19 Interval history: Gracia Crow is a 59-year-old female with a past medical history significant for alcohol dependence with previous alcohol withdrawal and delirium tremens who presented to the ED after being found down by her father for unknown amount of time and was admitted for alcohol withdrawal with seizures and delirium tremens, rhabdomyolysis, and UTI. The patient is resting in bed comfortably. She no longer exhibit signs of alcohol withdrawal her last CIWA score was 0. Her Wernicke's Korsakoff syndrome is improving with repletion of thiamine IV and her confusion with anterograde/retrograde amnesia and confabulation are resolving, opthalmoplegia is nearly resolved, and ataxia is improving. She continues to refuse inpatient alcohol treatment and outpatient AA meetings because she reports they make her want to drink alcohol more. She reports that she will never drink alcohol again. She is now open to going to penit[facility]iary facility for continued physical rehabilitation. She remains interested in outpatient counseling and would like to return home with home health after physical rehabilitation at a penitentiary facility. She has no complaints and denies headache, lightheadedness or dizziness, formication, hallucinations, delusions, paranoia, chest pain, shortness of breath, abdominal pain, nausea, vomiting, fever, chills, dysuria, diarrhea constipation. She is voiding and eliminating without difficulty. She is up ambulating with assistance. Exam Vital Signs (past 8 hours): - 09/29/19 07:28 09/29/19 11:31 09/29/19 12:00 Temperature 97.8 F 98.9 F Pulse Rate 92 H 86 Respiratory Rate 20 20 Blood Pressure 156/79 H 117/66 Pulse Oximetry 100 95 100 Oxygen Delivery Method Room Air Oxygen Flow Rate 0 Narrative Exam Narrative: General: Older female sitting in bed and in no acute distress, appears older than stated age, well-developed, well-nourished, slowed mentation with confabulation otherwise appropriately interactive. HEENT: Normocephalic, atraumatic. External ears without defect. Pupils equal, round, and reactive to light. Ophthalmoplegia and nystagmus nearly resolved. Anicteric sclerae, moist conjunctivae, and no lid lag. Oropharynx free of erythema and cobble stoning with moist mucosa. Large ecchymoses on right-sided chin and several small ecchymoses scattered over body. Neck: Supple with full range of motion. No lymphadenopathy or thyromegaly. Cardiovascular: Regular rate and rhythm without murmurs, rubs, or gallops appreciated. Pulmonary: Clear to auscultation bilaterally without crackles, wheezes, or rhonchi. Normal respiratory effort with no use of accessory muscles. Abdomen: Soft, bowel sounds present, nontender, nondistended. No hepatosplenomegaly or masses appreciated. Extremities: No clubbing, cyanosis, or edema. Skin: Normal temperature, turgor, and texture; no rash, ulcers, or subcutaneous nodules appreciated. Neurological: Cranial nerves grossly intact. Wernicke-Korsakoff syndrome with ophthalmoplegia, nystagmus, confusion with anterograde/retrograde amnesia and confabulation and ataxia, resolving. Generalized weakness but no focal neurological deficits. Psychiatric: Normal mood and flat and slightly anxious affect. Alert and oriented to person and place. Mentation slowed but improved. Mild cognitive impairment. Objective Labs Result Diagrams: 09/29/19 04:35 09/29/19 04:35 Labs: Laboratory Results - last 24 hr 09/29/19 09/29/19 04:35 04:35 WBC 3.8 L RBC 3.37 L Hgb 11.2 L Hct 33.3 L MCV 98.9 MCH 33.2 MCHC 33.5 RDW 13.1 Plt Count 91 L Neut % (Auto) 61.8 Lymph % (Auto) 15.9 L [place] % (Auto) 19.9 H Eos % (Auto) 1.9 L Baso % (Auto) 0.5 Neut # (Auto) 2300 Lymph # (Auto) 600 L [place] # (Auto) 700 Eos # (Auto) 100 Baso # (Auto) 0 Sodium 138 Potassium 3.6 Chloride 106 Carbon Dioxide 31 BUN 10 Creatinine 0.48 L Estimated GFR > 60.0 BUN/Creatinine Ratio 20.8 Glucose 116 H Calcium 8.6 Magnesium 1.6 Total Bilirubin 0.6 AST 290 H ALT 153 H Alkaline Phosphatase 44 Total Creatine Kinase 6065 H Total Protein 5.8 L Albumin 3.2 L Globulin 2.6 Albumin/Globulin Ratio 1.2 Assessment & Plan Assessment & Plan narrative: Gracia Crow is a 59-year-old female with a past medical history significant for alcohol dependence with previous alcohol withdrawal and delirium tremens who presented to the ED after being found down by her father for unknown amount of time and was admitted for alcohol withdrawal with seizures and delirium tremens, rhabdomyolysis, and UTI. 1. Acute alcohol withdrawal, alcohol withdrawal seizure, and DTs, secondary to alcohol dependence, present on admission. Resolved. -Patient reportedly drinks over 1 L of hard liquor daily and prefers vodka. Patient was found with 150 bottles of vodka underneath her bed. She lives at home with her father who reportedly had not heard movement from her in 2 days and when he checked on her found her down and minimally responsive. Her father does not believe she was intentionally trying to stop drinking alcohol but rather ran out of alcohol and was unable to obtain more due to weakness. Patient has a history of alcohol withdrawal with DTs. No history of seizure activity previously. -CT brain without contrast demonstrated greater than expected cerebral volume loss for age, with resultant ventricular and sulcal prominence and periventricular and deep white matter chronic small vessel ischemic changes with intracranial internal carotid artery atherosclerosis. -Alcohol level was undetectable at < 10 on admission. During previous ED visits, the patient has been coherent with an alcohol level of greater than 400. -Continue alcohol withdrawal/CIWA protocol. Continue seizure precautions as patient had likely two seizures in ED and patient received Keppra 500 mg IV x1 in ED which will not be continued as treating alcohol withdrawal that cause seizure. Continue Librium taper and decreased from 50 mg twice daily to 25 mg twice daily. Continue lorazepam as needed per CIWA score. -Continue to monitor electrolytes and replete as necessary. 2. Wernicke-Korsakoff syndrome, unclear acuity, present on admission. Improving. -Patient has confusion with anterograde/retrograde amnesia and confabulation, opthalmoplegia, nystagmus and ataxia. -CT brain without contrast demonstrated greater than expected cerebral volume loss for age, with resultant ventricular and sulcal prominence and periventricular and deep white matter chronic small vessel ischemic changes with intracranial internal carotid artery atherosclerosis. Could consider MRI to assess mammilary body degeneration. -Ammonia level negative at 11. -Continue thiamine 500 mg IV 3 times daily until time of discharge and then will transition to thiamine 100 mg PO 3 times daily for 2 weeks and then 100 mg PO daily thereafter. -Continue physical and occupational therapy evaluation and treatment. 3. Acute rhabdomyolysis, present on admission. Resolving. -Possibly traumatic from fall and being down for unknown period of time. Patient with seizure activity that likely contributed. -Initial total creatinine kinase 50,155. Total creatinine kinase trending downward now 6065. -Discontinue IV fluids after today and continue to encourage PO intake of fluids. 4. Acute kidney injury, present on admission. Resolved. -Secondary to prerenal azotemia from severe dehydration, rhabdomyolysis and urinary tract infection. -Initial creatinine 1.0. Baseline creatinine 0.5. Creatinine trending down now 0.56 with IV fluid resuscitation. -Continue IV fluids as noted above. -Avoid nephrotoxic agents. -Abdominal ultrasound did not demonstrate any abnormalities of kidneys. -Continue to monitor creatinine daily. 5. Acute E. coli urinary tract infection, present on admission. Resolving. -Urine culture grew E coli resistant to ampicillin and sulbactam. -Received cefepime 2 g IV x1 in the ED. Continue ceftriaxone 1 g IV daily until time of discharge. 6. Acute likely on chronic alcoholic hepatitis, present on admission. Resolving. -Initial LFTs severely elevated in alcoholic induced pattern of 2:1 AST:ALT with: Total bili elevated at 2.4, AST severely elevated at 1116, ALT elevated at 316 and alk-phos normal at 75. LFTs improving with IV fluid hydration and will continue as IV fluids as above. -Abdominal ultrasound demonstrated normal liver size and homogeneous in echotexture. -Acetaminophen level negative at < 10 and salicylate level negative at 1.0. Urine drug screen negative. Alcohol level undetectable < 10. -Acute hepatitis panel negative. -Continue to monitor LFTs daily. 7. Acute hypernatremia, present on admission. Resolved. -Secondary to severe dehydration as evidence by concentrated labs and rhabdomyolysis. -Initial sodium level 147 and increased to 149 after 1 L NS bolus in ED. Sodium level normalized with IV fluid hydration now 144. Continue IV fluid hydration as above. -Continue to monitor sodium level daily. 8. Thrombocytopenia, unclear acuity but likely chronic, present on admission. Active. -Secondary to chronic alcohol dependence and bone marrow suppression and possibly infection with UTI as above. -Initial platelet level low at 87 and trended down to 69 and now trending up to 91. No overt signs of bleeding. -Continue to monitor platelet count daily. 9. Ruled out sepsis. -COVID-19 negative. Chest x-ray did not demonstrate any acute cardiopulmonary process. Afebrile. Blood cultures have no growth to date. -Patient's lactate was elevated at 5.4 and quickly resolved with IV fluid resuscitation. Patient's lactic acid was elevated due to seizures and being found down for unknown likely prolonged period of time. -Patient has urinary tract infection but does not appear septic and will continue to treat urinary tract infection as above. Code status: Full code VTE prophylaxis: Enoxaparin, SCDs Disposition: Patient will discharge in next 1-2 days either to penitentiary facility for continued rehabilitation or home with home health.
--- NOTE | 2019-09-29 15:10 | PC.NURSE ---
A&O X3 with some confusion and slow processing; gait unstable with leaning; 1-mod asst with gait belt and fww; VSS; CIWA 0; d/c pending SNF placement
--- NOTE | 2019-09-29 16:21 | CM.DPNOTE ---
DCP Cont Dr Santana suggests patient DC to SNF for continued PT/OT strengthening and patient agreeable to such, no facility preference. Patient understands finding a SNF will be dependent on who can accept her [facility] (?) Therapy team continue to recommend SNF at DC. Dr Santana hopeful patient can DC to SNF tomorrow. Attempted [facility], they are not contracted w/[facility]. Attempted [facility] and they do not have beds available Attempted [facility] and they do not have beds available Attempted [facility], have not heard back yet on bed availability, will attempt tomorrow. DC likely back home w/HH. This ACQUISITIONS EDITOR following closely and will need to review DCP w/ patient, her father and possibly her brother (?) to see how much assist is available at this time. HH referral still needed. LAURA Loja
[2019-09-29] MEDS: CEFTRIAXONE 1 GM/50 ML FROZ.PIGGY IV (20:23)
[2019-09-30 04:30] VITALS: BP 156/88; PULSE 85; RESP 18; O2SAT 99
[2019-09-30 04:55] VITALS: TEMP 36.5
[2019-09-30 05:06] LABS: Add Manual Diff / Slide Review NO; Basophils Absolute Auto 0 /uL (0-100); Basophils Percent Auto 0.7 % (0-2); Eosinophils Absolute Auto 100 /uL (0-450); Hematocrit 36.4 % (36-46); Hemoglobin 12.1 g/dL (12.0-16.0); Lymphocytes Absolute Auto 800 /uL (1100-4500); Lymphocytes Percent Auto 23.2 % (25-40); Mean Corpuscular HGB Conc 33.2 % (30-36); Mean Corpuscular Hemoglobin 32.8 PG (26-34); Mean Corpuscular Volume 98.7 fL (80-100); Monocytes Absolute Auto 900 /uL (0-900); Monocytes Percent Auto 25.2 % (3-14); Neutrophils Absolute Auto 1600 /uL (1500-7000); Neutrophils Percent Auto 47.9 % (50-75); Platelet Count 118 X10^3/uL (150-400); Red Blood Cell Count 3.69 X10^6/uL (4.0-5.2); Red Cell Distribution Width 13.1 % (11.6-14.8); White Blood Cell Count 3.4 X10^3/uL (4.5-11.0)
[2019-09-30 05:10] LABS: Alanine Aminotransferase 139 IU/L (<35); Albumin 3.5 g/dL (3.5-5.0); Albumin Globulin Ratio 1.3 (1.0-2.8); Alkaline Phosphatase 45 U/L (38-126); Aspartate Aminotransferase 182 IU/L (14-36); BUN Creatinine Ratio 22.9 (6-22); Bilirubin Total 0.5 mg/dL (0.2-1.3); Blood Urea Nitrogen 11 mg/dL (7-17); Calcium 9.8 mg/dL (8.4-10.2); Carbon Dioxide 31 mmol/L (22-32); Chloride 106 mmol/L (98-107); Estimated Glomerular Filt Rate > 60.0 mL/min (>60); Globulin 2.8 g/dL (1.7-4.1); Glucose 97 mg/dL (70-100); HEMOLYSIS < 15 (0-50); Magnesium 1.7 mg/dL (1.6-2.3); Potassium 4.1 mmol/L (3.4-5.1); Sodium 142 mmol/L (137-145); Total Protein 6.3 g/dL (6.3-8.2)
--- NOTE | 2019-09-30 06:29 | PC.NURSE ---
Dial [facility] Note-Allowed patient to sleep undisturbed until lab draw at 0500. Ambulated to BR with SBA, gait still slightly unsteady, no tremors, CIWA =1, denies pain, anxiety, or nausea.
[2019-09-30 07:54] VITALS: BP 163/81; PULSE 93; RESP 18; TEMP 37.1; O2SAT 100
--- NOTE | 2019-09-30 07:58 | P.DS_ITS ---
History of Present Illness History of Present Illness Date Patient Seen: 09/26/19 Chief complaint: Detox Narrative: Written by Dr. Andrade: Markell Crow is a 59-year-old female with past medical history of alcohol abuse (prior documentation of liters of hard liquor daily, hx of DTs per chart review) who was found on the floor of her room naked by her father this morning. History was obtained via chart review as well as with discussion with the patient's father. During the interview, patient kept referring to various events throughout the year and was confused. She lives in the same house as her father, but has her own room. Her father is elderly and is unable to do much himself. He reports that Gracia has been an alcoholic for very long time. He had last seen her 2 days ago, but she frequently goes into her room and watches TV and does not come out for long periods of time. He began to get worried this morning when he had not heard anything over the prior 2 days and forced himself into her room this morning which is when he found her naked and laying on the floor with her clothes scattered about. He called his son to help, who found about 150 bottles of vodka underneath her bed after cleaning her room. He did not think that she had intentionally tried to stop drinking, but rather thinks that she may have run out and been unable to obtain more. In the emergency room, patient was initially hypertensive and tachycardic. Other vital signs were unremarkable. She was agitated and confused. She was given 2 mg of Ativan initially which partially helped to calm her down. After this 2 mg she began to have a possible seizure-like movements with rhythmic motion her jaw. She was given additional 2 mg of Ativan and Benadryl IV. Initial laboratory evaluation showed despite concentrated labs a platelet count of 87, but otherwise unremarkable CBC. Her sodium was 147, potassium 3.3, creatinine 1.03 from a baseline of 0.5, glucose 115. Lactic acid initially was 5.4, and CK was 50,000. Her AST was markedly elevated at 1116, ALT of 316. Al cohol level is negative. Salicylates level is 1, and Tylenol level is negative. UA was grossly positive with 30-100 white blood cells, nitrites, and leuk esterase. Patient was given 2 L of normal saline bolus and put on a normal saline infusion. Her creatinine did down trend to 0.78, lactic acid improved to normal at 0.7. After IV fluids other labs began to improve as well with creatinine down to 0.78, CK down to 30,000, and AST down to 707. EKG showed sinus rhythm with a prolonged QTC at 514, and a short as needed interval. But no evidence of ischemia. Her chest x-ray is negative, head CT showed greater than expected volume loss, but no acute abnormalities. Neck CT was also negative. Upon arrival to the medicine floor, patient had a brief episode again of rhythmic contractions of her RUE as well as unresponsiveness, consistent with seizure activity. This stopped after a few seconds, but the patient was tremulous and had tongue fasciculation she was given additional Ativan which made her calm, sleepy, but arousable. Phenobarb is ordered if symptoms recur. She is admitted to the ICU with alcohol withdrawal with possible seizure and possible delirium tremens, as well as rhabdomyolysis, and hypernatremia. Discharge Providers Provider Date of admission: 09/26/19 15:09 Discharge Date: 09/30/19 Primary care physician: Javier Miles MD Consults: 09/26/19 16:04 Consult to [facility] [facility] [employer] Data Acquisition Technician Routine Comment: 09/26/19 16:50 Consult to Dietitian, Adult Routine Comment: Reason For Exam: malnutrition, alcoholism 09/27/19 08:42 Consult to Occupational Therapy Evaluate & Treat Comment: SLUMS as well Physician Instructions: Evaluate and treat Consult to Physical Therapy Evaluate & Treat Comment: Physician Instructions: Evaluate and Treat Discharge provider: Renetta Santana DO Summary Hospital Course Discharge Diagnosis: 1. Acute alcohol withdrawal, alcohol withdrawal seizure, and DTs, secondary to alcohol dependence, present on admission. Resolved. 2. Wernicke-Korsakoff syndrome, unclear acuity, present on admission. Improving. 3. Acute rhabdomyolysis, present on admission. Resolving. 4. Acute kidney injury, present on admission. Resolved. 5. Acute E. coli urinary tract infection, present on admission. Resolved. 6. Acute likely on chronic alcoholic hepatitis, present on admission. Resolving. 7. Thrombocytopenia, unclear acuity, present on admission. Resolving. 8. Acute hypernatremia, present on admission. Resolved. 9. Ruled out sepsis. Hospital Course: Gracia Crow is a 59-year-old female with a past medical history significant for alcohol dependence with previous alcohol withdrawal and delirium tremens who presented to the ED after being found down by her father for unknown amount of time and was admitted for alcohol withdrawal with seizures and delirium tremens, rhabdomyolysis, and UTI. 1. Acute alcohol withdrawal, alcohol withdrawal seizure, and DTs, secondary to alcohol dependence, present on admission. Resolved. -Patient reportedly drinks over 1 L of hard liquor daily and prefers vodka. Patient was found with 150 bottles of vodka underneath her bed. She lives at home with her father who reportedly had not heard movement from her in 2 days and when he checked on her found her down and minimally responsive. Her father does not believe she was intentionally trying to stop drinking alcohol but rather ran out of alcohol and was unable to obtain more due to weakness. Patient has a history of alcohol withdrawal with DTs. No history of seizure act ivity previously. -CT brain without contrast demonstrated greater than expected cerebral volume loss for age, with resultant ventricular and sulcal prominence and periventricular and deep white matter chronic small vessel ischemic changes with intracranial internal carotid artery atherosclerosis. -Alcohol level was undetectable at < 10 on admission. During previous ED visits, the patient has been coherent with an alcohol level of greater than 400. -Continued alcohol withdrawal/CIWA protocol. Continued seizure precautions as patient had likely two seizures in ED and patient received Keppra 500 mg IV x1 in ED (Keppra was not continued as alcohol withdrawal was treated which caused seizure). Completed slow Librium taper. Continued lorazepam as needed per CIWA score. -Continued to monitor electrolytes and replete as necessary. 2. Wernicke-Korsakoff syndrome, unclear acuity, present on admission. Improving. -Patient has confusion with anterograde/retrograde amnesia and confabulation, o pthalmoplegia, nystagmus and ataxia all improving with thiamine repletion. -CT brain without contrast demonstrated greater than expected cerebral volume loss for age, with resultant ventricular and sulcal prominence and periventricular and deep white matter chronic small vessel ischemic changes with intracranial internal carotid artery atherosclerosis. Could consider MRI to assess mammilary body degeneration. -Ammonia level negative at 11. -Continued thiamine 500 mg IV 3 times daily x 3 days then started and discharged on thiamine 100 mg PO 2 times daily for 2 weeks and then 100 mg PO daily th ereafter. -Continued physical and occupational therapy evaluation and treatment. 3. Acute rhabdomyolysis, present on admission. Resolving. -Possibly traumatic from fall and being down for unknown period of time. Patient with seizure activity that likely contributed. -Initial total creatinine kinase 50,155. Total creatinine kinase trending downward now 2340. -Continued IV fluids until adequately hydrated then discontinued. Continued to encourage PO intake of fluids. 4. Acute kidney injury, present on admission. Resolved. -Secondary to prerenal azotemia from severe dehydration, rhabdomyolysis and urinary tract infection. -Initial creatinine 1.0. Baseline creatinine 0.5. Creatinine trendinged down to baseline. -Continued IV fluids until adequately hydrated then discontinued. -Avoided nephrotoxic agents. -Abdominal ultrasound did not demonstrate any abnormalities of kidneys. -Continued to monitor creatinine daily. 5. Acute E. coli urinary tract infection, present on admission. Resolved. -Urine culture grew E. coli resistant to ampicillin and sulbactam. -Received cefepime 2 g IV x1 in the ED and continued ceftriaxone 1 g IV daily x 4 days to complete 5 days total of antibiotic treatment. 6. Acute likely on chronic alcoholic hepatitis, present on admission. Resolving. -Initial LFTs severely elevated in alcoholic induced pattern of 2:1 AST:ALT with: Total bili elevated at 2.4, AST severely elevated at 1116, ALT elevated at 316 and alk-phos normal at 75. LFTs improved with IV fluid hydration and abstinence from alcohol. Current LFTs: Total bilirubin 0.5, AST 182, ALT 139, alkaline phosphatase 45. -Abdominal ultrasound demonstrated normal liver size and homogeneous in echotexture. -Acetaminophen level negative at < 10 and salicylate level negative at 1.0. Urine drug screen negative. Alcohol level undetectable < 10. -Acute hepatitis panel negative. -Continued to monitor LFTs daily. 7. Acute hypernatremia, present on admission. Resolved. -Secondary to severe dehydration as evidence by concentrated labs and rhabdomyolysis. -Initial sodium level 147 and increased to 149 after 1 L NS bolus in ED. Sodium level normalized with IV fluid hydration now 142. Continued IV fluid hydration as above. -Continued to monitor sodium level daily. 8. Thrombocytopenia, unclear acuity, present on admission. Resolving. -Secondary to chronic alcohol dependence and bone marrow suppression and possibly infection with UTI as above. -Initial platelet level low at 87 and trended down to 69 and now trending up to 118. No overt signs of bleeding. -Continued to monitor platelet count daily. 9. Ruled out sepsis. -COVID-19 negative. Chest x-ray did not demonstrate any acute cardiopulmonary process. Afebrile. Blood cultures have no growth to date. -Patient's lactate was elevated at 5.4 and quickly resolved with IV fluid resuscitation. Patient's lactic acid was elevated due to seizures and being found down for unknown likely prolonged period of time. -Patient had urinary tract infection but does not appear septic and treated urinary tract infection as above. Exam Vital Signs (past 8 hours): - 09/30/19 04:30 09/30/19 04:55 09/30/19 07:54 Temperature 97.7 F 98.7 F Pulse Rate 85 93 H Respiratory Rate 18 18 Blood Pressure 156/88 H 163/81 H Pulse Oximetry 99 100 Oxygen Delivery Method Room Air Oxygen Flow Rate 0 Narrative Exam Narrative: General: Older female sitting in bedside chair and in no acute distress, appears older than stated age, well-developed, well-nourished, slowed mentation with confabulation otherwise appropriately interactive. HEENT: Normocephalic, atraumatic. External ears without defect. Pupils equal, round, and reactive to light. Ophthalmoplegia and nystagmus resolved. Anicteric sclerae, moist conjunctivae, and no lid lag. Oropharynx free of erythema and cobble stoning with moist mucosa. Large ecchymoses on right-sided chin healing and several small ecchymoses scattered over body. Neck: Supple with full range of motion. No lymphadenopathy or thyromegaly. Cardiovascular: Regular rate and rhythm without murmurs, rubs, or gallops appreciated. Pulmonary: Clear to auscultation bilaterally without crackles, wheezes, or rhonchi. Normal respiratory effort with no use of accessory muscles. Abdomen: Soft, bowel sounds present, nontender, nondistended. No hepatosplenomegaly or masses appreciated. Extremities: No clubbing, cyanosis, or edema. Skin: Normal temperature, turgor, and texture; no rash, ulcers, or subcutaneous nodules appreciated. Neurological: Cranial nerves grossly intact. Wernicke-Korsakoff syndrome with ophthalmoplegia (resolved), nystagmus (resolved), confusion (resolved) with anterograde/retrograde amnesia and confabulation, and ataxia. Generalized weakness but no focal neurological deficits. Psychiatric: Normal mood and flat and slightly anxious affect. Alert and oriented to person and place. Mentation slowed but improved. Mild cognitive impairment with confabultion as above. Objective Labs Result Diagrams: 09/30/19 04:45 09/30/19 04:45 Labs: Laboratory Results - last 24 hr 09/30/19 09/30/19 04:45 04:45 WBC 3.4 L RBC 3.69 L Hgb 12.1 Hct 36.4 MCV 98.7 MCH 32.8 MCHC 33.2 RDW 13.1 Plt Count 118 L Neut % (Auto) 47.9 L Lymph % (Auto) 23.2 L Ada % (Auto) 25.2 H Eos % (Auto) 3.0 Baso % (Auto) 0.7 Neut # (Auto) 1600 Lymph # (Auto) 800 L Ada # (Auto) 900 Eos # (Auto) 100 Baso # (Auto) 0 Sodium 142 Potassium 4.1 Chloride 106 Carbon Dioxide 31 BUN 11 Creatinine 0.48 L Estimated GFR > 60.0 BUN/Creatinine Ratio 22.9 H Glucose 97 Calcium 9.8 Magnesium 1.7 Total Bilirubin 0.5 AST 182 H ALT 139 H Alkaline Phosphatase 45 Total Protein 6.3 Albumin 3.5 Globulin 2.8 Albumin/Globulin Ratio 1.3 Discharge Plan Discharge Plan Patient Disposition: Home Health Service Discharge comment: You are being discharged home with home health for physical therapy, occupational therapy, nursing and hospice social worker. You were treated for alcohol withdrawal, alcohol withdrawal seizures, delirium tremens or DTs, Wernicke-Korsakoff syndrome (vitamin B1 or thiamine deficiency) and rhabdomyolysis. You have been prescribed thiamine 100 mg twice daily for 2 weeks then thiamine 100 mg daily thereafter. You have also been prescribed folic acid and multivitamin daily. Please try to stay well hydrated and drink plenty of water. Please follow-up with your primary care provider, Dr. Miles, at your scheduled appointment regarding your hospitalization. You have severe w eakness due to B1 deficiency and deconditioning and recommend using a walker at all times. Discharge orders & Medications Prescriptions: New multivitamin [Tab-A-Thompson] Tablet 1 tab PO DAILY Qty: 30 RF: 0 thiamine HCl (vitamin B1) [Vitamin B-1] 100 mg Tablet 100 mg PO BID Qty: 60 RF: 0 folic acid 1 mg Tablet 1 mg PO DAILY Qty: 30 RF: 0 Follow up/Referrals: Javier Miles MD [Primary Care Provider] - 10/07/19 12:00 pm (appt:10/06 @ 1200 (noon) with dr miles please arrive 15 minutes prior to your scheduled appointment ) Diet/Activity/Treatments Diet: Diet as Tolerated, Low-sodium, Low-cholesterol and Low-protein/Renal Activity: Activity as tolerated with a forward wheeled walker at all times and physical and occupational therapy Visit Report/Discharge Packet Instructions: Alcohol and Stress: There are Safer Ways to [place], Alcohol Use Disorder, DI for Delirium Tremens, DI for Alcohol Abuse, DI for Drug or Alcohol Withdrawal, DI for Rhabdomyolysis, Heavy Alcohol Use May Increase Risk Cancer Visit Report Forms: Patient Portal/API, Stroke Signs & Symptoms Discharge Data Primary Care Provider: Javier Miles
[2019-09-30 08:00] VITALS: O2SAT 100
[2019-09-30] MEDS: POTASSIUM CHLORIDE 20 MEQ TAB 40 MEQ PO (08:23)
[2019-09-30] MEDS: THIAMINE 100 MG TABLET PO (08:24)
[2019-09-30] MEDS: ENOXAPARIN 40 MG/0.4 ML SYRINGE SUBCUT (08:24)
[2019-09-30] MEDS: chlordiazePOXIDE 25 MG CAPSULE PO (08:24)
[2019-09-30] MEDS: MAGNESIUM CHLORIDE 64 MG TABLET 128 MG PO (08:24)
[2019-09-30] MEDS: MULTIVITAMIN 1 TABLET 1 TAB PO (08:24)
[2019-09-30] MEDS: FOLIC ACID 1 MG TABLET PO (08:24)
--- NOTE | 2019-09-30 11:13 | OT.IP.TRT ---
Current Diagnoses Alcohol dependence with withdrawal delirium (09/26/19) Occupational Therapy Treatment Note M2 OT-IP Current Condition Start: 09/27/19 14:41 Freq: Status: Active Protocol: Document 09/27/19 14:42 CGR (Rec: 09/27/19 15:00 CGR [email or web address]) Occupational Therapy Current Condition Current Condition Evaluation Date 09/27/19 Treatment Diagnosis ETOH withdrawl Diagnosis Onset Date 09/26/19 M3 OT- IP Subjective and Pain Start: 09/27/19 14:41 Freq: Status: Active Protocol: Document 09/30/19 12:17 [facility]3] (Rec: 09/30/19 12:43 [facility]3] [id number]) OT- Subjective Occupational Therapy Visit Type Type Treatment Note Visit Start Time 11:13 Visit Stop Time 12:06 Total Visit Minutes 53 Occupational Therapy Visit Comments Patient Comments Pt wanting to get dressed but does not have any clothes. Pt willing to retry SLUMS and do ACL Large Ronen Cognitive Screen Patient/Caregiver Goals To go home. OT Pain Assessment Pain When Pain Assessed At Rest Pain Present Pain Present Denied Pain M4 OT- IP ADL's Start: 09/27/19 14:41 Freq: Status: Active Protocol: Document 09/30/19 12:17 [facility]3] (Rec: 09/30/19 12:43 [facility]3] [id number]) OT ADL-Dressing General Eval Lower Body Dressing Ability Standby Assistance Comments OT Dressing Comments SBA for safety OT ADL-Toileting General Evaluation Toileting Ability Standby Assistance Comments OT Toileting Comments VC for completeness and safety , pt did not realize that the gown was in the toilet while trying to use the toilet and not aware that the brief was wet as well. M5 OT- IP IADL's Start: 09/27/19 14:41 Freq: Status: Active Protocol: Document 09/30/19 12:17 [facility]3] (Rec: 09/30/19 12:43 [facility]3] [email or web address]) OT-Instrumental Activities of Daily Living Deficits IADL Deficits Identified Deficits Home Safety Awareness Awareness of Need for Assistance at Home Decreased Awareness Ability to Problem Solve Emergency Unable to Problem Solve Situations Home Safety Comments Pt did not realize what to do in case of the toilet flooding and needing cues and final able to realize to turn the water off. Medication Management Medication Management Comments At this time pt would need assist to help manage medication needs. Money Management Money Management Comments At this time, pt would need assist to money management needs. Meal Preparation Meal Preparation Comments At this time due to decreased cognition and balance would need assist. Barrel Builder Barrel Builder Comments Pt will need assist. Driving Driving Comments NO driving at this time due to decreased cognition and safety awareness. M6 OT- IP Functional Cognition Start: 09/27/19 14:41 Freq: Status: Active Protocol: Document 09/30/19 12:17 [facility]3] (Rec: 09/30/19 12:43 [facility]3] [id number]) Cognitive Factors Limiting Selfcare Function Cognitive Ability Level of Alertness Alert Patient Orientation Name,Month,Date,Place, Situation Attention Span Ability Capable of Focused Attention, Capable of Sustained Attention Ability to Follow Commands Able to Follow One Step Commands with Increased Time, Able to Follow One Step Commands with Repetition Memory Description Short Term Impaired Safety Awareness Underestimates Need for Assistance Problem Solving Ability Unable to Identify Errors, Needs Assist to Identify Solutions Executive Function Ability Unable to Make Plans,Unable to Organize Plans,Unable to Remember Details Cognitive Tests SLUMS Redid SLUMs and pt scored 16/ 30 which still implies deficits with cognition. Cognitive Comments Cognitive Assessment Comments Pt scored 4.0 out of 6.0 which implies that pt will need 24 hour supervision to recognize and correct hazzards even in a routine activities. Pt needing prompts for self care and manage daily routine, provide meals/meds/finances/ and grooming supplies. M7 OT- IP Mobility and Balance Start: 09/27/19 14:41 Freq: Status: Active Protocol: Document 09/30/19 12:17 [facility]3] (Rec: 09/30/19 12:43 [facility]3] [id number]) OT-Transfer Assessment Sit to and From Stand Sit to and from Stand Contact Guard Assistance, Minimal Assistance Transfers Transfer Ability Contact Guard Assistance, Minimal Assistance Technique Transfer Destination Chair,Toilet Transfer Technique Stand Step Pivot Devices Transfer Assistive Devices Gait Belt,Front Wheeled Walker Comments Mobility Comments Pt needing CGA for balance as unsteady on her feet with FWW. Trial without FWW and pt needing from ANJEL to MODA as had loss of balance. Pt able to get down to the floor while holding the bench seating area and needing ANJEL to help get up. OT- Gait Assessment Gait Gait Assistance Required: Contact Guard Assist,Minimum Assistance Assistive Devices Assistive Device Gait Belt,Front Wheeled Walker OT- Balance Assessment Sitting Balance and Reactions Static Sitting Balance Ability Good Dynamic Sitting Balance Ability Fair Standing Balance and Reactions Static Standing Balance Ability Poor M8 OT- IP Objective Assessments Start: 09/27/19 14:41 Freq: Status: Active Protocol: Document 09/27/19 14:42 CGR (Rec: 09/27/19 15:00 CGR [email or web address]) OT Gross Range of Motion Upper Extremity Range of Motion Assessment Within Functional Limits OT Strength Upper Extremity Strength Assessment Within Functional Limits Comments Strength Comments 4/5 OT- Coordination Assessment Upper Extremity Finger to Nose Test Within Functional Limits Finger Tapping Test Within Functional Limits OT-Muscle Tone Assessment Muscle Tone WNL Yes M9 OT- IP Assessment and Plan Start: 09/27/19 14:41 Freq: Status: Active Protocol: Document 09/30/19 12:17 CCC (Rec: 09/30/19 12:43 CCC [email or web address]) OT Summary Assessment and Plan Potential Rehabilitation Potential Good Analytic Complexity at Evaluation Low Summary OT Impairments Pain,Balance,Functional Mobility,Grooming,Dressing, Toileting,Bathing,Toilet Transfers,Shower Transfers, Activity Tolerance Progress Towards Goals Progressing Toward Goals Assessment Summary Pt progressing but still unsteady on her feet, poor safety awareness and insight and will need assist/ supervision at all time at home. Pt scored 16/30 score improved from 14/30 yesterday which still implies significant cognitive deficits and per ACL 4.0 implies that pt will need 24/7 supervision to recognize and correct safety hazzards and for decreased insight and balance at this time. It is strongly recommended that pt would benefit from skilled rehab versus 24/7 assist at home. 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 Pt is a high fall risk Pt is far from baseline level of being completely independent. Goals Self-Feeding Goal Independent Grooming Goal Independent Dressing Goal Independent Toileting Goal Independent Bathing Goal Independent Toilet Transfer Goal Independent Shower Transfer Goal Independent Days to Meet Goals 7 Treatment Plan OT Treatment Plan ADL Training,Functional Cognition Training,Functional Mobility,Patient/Family Education,Discharge Planning Discharge Recommendations OT Discharge Recommendations SNF Rehab Home Equipment Needs TBD Transportation Needs at Discharge Private Vehicle,Wheelchair/ Cabulance
[2019-09-30 12:00] VITALS: O2SAT 99
--- NOTE | 2019-09-30 12:16 | PT.IPTN ---
Current Diagnoses Alcohol dependence with withdrawal delirium (09/26/19) Physical Therapy Treatment Note M2 PT-IP Current Condition Start: 09/27/19 10:23 Freq: NEEDED Status: Active Protocol: Document 09/27/19 11:59 AW (Rec: 09/27/19 12:41 AW [id number]) Physical Therapy Current Condition Current Condition Evaluation Date 09/27/19 Treatment Diagnosis alcohol withdrawal seizure; impaired mobility with ataxic gait Onset Date 09/26/19 Precautions Other Precautions seizure precautions M3 PT-IP Subjective Start: 09/27/19 10:23 Freq: NEEDED Status: Active Protocol: Document 09/30/19 11:23 KS (Rec: 09/30/19 11:54 KS [id number]) Subjective Physical Therapy Visit Type Type Treatment Note Visit Start Time 10:40 Visit Stop Time 12:16 Total Visit Minutes 45 Notes Split treatment, 10:40 - 11:04 , 11:55-12:16 Number of [employer] Visits 3 Physical Therapy Visit Comments Patient Comments Pt willing to participate with PT. Therapy Pain Assessment Pain Present Pain Present Denied Pain M4 PT-IP Mobility and Gait Start: 09/27/19 10:23 Freq: NEEDED Status: Active Protocol: Document 09/30/19 11:23 KS (Rec: 09/30/19 11:54 KS [id number]) PT-Bed Mobility Assessment Scooting Scooting to Edge of Bed Contact Guard Assistance PT-Transfer Assessment Sit to and From Stand Sit to and from Stand Contact Guard Assistance, Minimal Assistance,1 Person Assistance,Use of Upper Extremities Equipment Transfer Assistive Device Gait Belt,Front Wheeled Walker Transfers Transfer Destination Bed,Chair,Toilet Transfer Technique Pt ambulated w/ and w/o FWW Transfer Ability Level of Assist Minimal Assistance,1 Person Assistance,Use of Upper Extremities Comments Mobility Comments Pt was seated in chair upon arrival from therapy. Pt CGA for scooting to edge of chair and CGA to Min A sit<>stand w/ FWW. Pt then ambulated to BR w/ FWW and Min A/cues for FWW management and balance. Pt CGA and use of hand rail for stand<>sit. Pt demonstrated poor use of FWW, running into door frame upon entry to BR. Pt CGA for sit<>stand from toilet, she then ambulated outside of BR and towards bed before impulsively sitting on bed. Pt then agreed to ambulate further around her room w/ FWW and continued to demonstrate poor safety awareness, impulsivity, and FWW management and bumped into bed several times while using FWW. Pt ambulated w/ lateral lean and ataxic gait. Pt then stated that she does not need the FWW and ambulated ~15 ft w/o AD and Min A to Mod A to remain balanced. Pt immediately began grabbing furniture for balance and returned to chair to sit. Pt ambulated ~35 ft total w/ Min to Mod A and frequent verbal and tactile cues for balance and FWW management. Pt stated she does not need to utilize stairs at home. During second half of treatment, pt sit<>stand CGA from chair and ambulated in hallway ~100 ft w/ FWW and Min A for FWW management and balance. Pt then transported in w/c to stairs where she completed 3 steps x4 w/ bilateral handrails and CGA and Max cues. Pt caught foot on step ascending x3 and needed frequent cues to ascend/ descend w/ step to pattern for safety but pt would not perform. Pt brought in w/c back to room and CGA for sit<> stand from w/c and ambulated to chair w/ FWW Min A for FWW management. Pt stand<>sit impulsively, landing on arm rest of chair when sitting. Pt able to reposition herself in chair CGA. Pt left in chair w / all needs in reach and chair alarm on. Gait Assessment Gait Gait Assistance Required: Minimum Assistance,Moderate Assistance,1 Person Assist Distance (Feet) 135 Able to Maintain Weight Bearing Status Yes During Gait Assistive Devices Assistive Device Gait Belt,Front Wheeled Walker Gait Deviations General Gait Pattern Ataxic,Decreased Stride Length ,Decreased Feet Clearance, Flexed Trunk,Wide Based Gait Factors Limiting Gait Function Factors Limiting Gait Function Decreased Activity Tolerance, Decreased Sensation,Decreased Strength,Difficulty Following Directions,Incoordination,Pain ,Poor Balance,Poor Safety Awareness Comments Gait Comments Pt ambulated ~8 ft to BR w/ FWW and Min A for FWW management, running into doorframe when entering BR. Pt then ambulated ~15 ft w/ FWW around room and bumped into bed frame several times, needing Min A to Mod A for balance and FWW management. Pt then stated she does not need FWW and ambulated ~12 ft w/o AD and immediately grabbed onto furniture in room to remain balanced, needing Min A to Mod A and cues in addition to support from furniture to ambulate. During second half of treatment, pt ambulated ~ 100 ft w/ FWW and Min A for FWW management and balance. Pt again unable to avoid running into wall and food cart parked in hallway during ambulation and continues to have poor safety awareness and poor balance. Pt is high fall risk and is not safe to ambulate on her own at this time d/t poor balance, poor safety awareness, and impulsiveness. Stair Climbing Assessment Evaluation Level of Assist On Stairs Contact Guard Assistance,1 Person Assistance Devices Stair Climbing Assistive Devices Left Railing,Right Railing Technique/Endurance Stair Climbing Direction Ascend and Descend Stair Climbing Technique Step Over Step,Step to Step Number of Steps Climbed 3 Stair Climbing Set # Repetitions (reps) 4 Comments Stair Climbing Comments Pt completed 3 steps x4 w/ bilat handrails and CGA and max cues for sequencing and safety. Pt caught foot x3 throughout stair training. Cues for step to pattern for safety, but pt is impulsive and did not listen to cues and continued w/ step over step pattern ascending. During descent, pt adhered to step to pattern when blocked from advancing too quickly on stairs. Pt is not safe to perform stairs on her own at home d/t poor safety awareness and high fall risk. PT-Balance Assessment Sitting Balance and Reactions Static Sitting Balance Ability Fair Dynamic Sitting Balance Ability Poor Standing Balance and Reactions Static Standing Balance Ability Poor Dynamic Standing Balance Ability Poor Device Used FWW M5 PT-IP Objective Assessments Start: 09/27/19 10:23 Freq: NEEDED Status: Active Protocol: Document 09/27/19 11:59 AW (Rec: 09/27/19 12:41 AW [id number]) Orientation Orientation/Cognition Level of Alertness Confusional State Orientation Name,Place Language Function Ability Word Finding Difficulties Safety Awareness Decreased Safety Awareness Memory Description Short Term Impaired Comments Pt was oriented to self and place only. She had word finding difficulty and had significant challenges attending to task. She had difficulty following single- step instructions. Gross Range of Motion Lower Extremity ROM Assessment Bilaterally Impaired Impairments B ankles lack dorsiflexion past neutral. Strength Lower Extremity Strength Assessment Bilaterally Impaired Hip 3-/5 Knee 4-/5 Ankle 4-/5 Coordination Assessment Gross Coordination Gross Coordination Impaired Assessment Finger to Nose Test Severe Impairment Pronation/Supination Test Activity Impossible Foot Tapping Test Severe Impairment Coordination Comments Ataxic gait. Impaired motor planning and execution. Sensation Assessment Sensation Gross Sensation Right UE Impaired,Left UE Impaired,Right LE Impaired, Left LE Impaired Light Touch Impaired Proprioception (Position) Impaired Comments Sensation Comments Proprioception impaired with testing of bilateral ankles Muscle Tone Muscle Tone WNL No Muscle Tone Location Bilateral Lower Extremity Type of Tone Hypertonicity Severity of Tone Moderate Manifistation of Tone Resting Tremors,Ataxia M6 PT-IP Treatment Start: 09/27/19 10:23 Freq: NEEDED Status: Active Protocol: Document 09/30/19 11:23 KS (Rec: 09/30/19 11:54 KS [id number]) Physical Therapy Treatment Education Education Provided Precautions,Safety M7 PT-IP Assessment and Plan Start: 09/27/19 10:23 Freq: NEEDED Status: Active Protocol: Document 09/30/19 11:23 KS (Rec: 09/30/19 11:54 KS [id number]) PT Summary Assessment and Plan Potential Rehabilitation Potential Fair Status of Condition at Evaluation Evolving Summary Impairments Pain,ROM,Strength,Balance, Coordination,Sensation, Cognition,Bed Mobility, Transfers,Gait,Activity Tolerance Assessment Summary Pt CGA and cues for sit<>stand w/ FWW. Min to Mod A for ambulation w/ FWW. Pt has very poor FWW use and safety awareness and is very impulsive w/ movements. Pt bumped into door frame and bed frame several times during ambulation w/ FWW and then after reporting she does not need FWW, she proceeded to grab on to furniture in room to remain balanced on walk back to chair. During second half of treatment, pt able to ambulate ~100 ft w/ FWW and Min A, but still unable to avoid bumping into objects and barrios w/ FWW and needs frequent redirection/FWW management and Min A for balance. Pt completed 12 total steps CGA and Max cues w/ bilateral handrails and cues for safety and sequencing. Pt caught her foot x3 while ascending stairs and would not adhere to step to step gait pattern ascending. Pt w/c back to room and ambulated to chair w/ FWW and sat on arm rest when attempting to sit in chair. Pt unsafe to ambulate or perform stairs on her own at this time d/t poor balance, decreased safety awareness, and impulsivity. Pt would benefit from SNF to improve balance, safety awareness, and ambulation w/ FWW. Goals Bed Mobility Goal Standby Assistance Transfer Goal Contact Guard Assistance,Front Wheeled Walker Gait Goal Contact Guard Assistance,Front Wheel Walker Gait Distance 75 Other Goals - up/down 12 steps SBA Days to Meet Goals 20 Frequency of Treatment Frequency Of Treatment Once a Day Treatment Plan Physical Therapy Treatment Plan Bed Mobility Training,Transfer Training,Gait Training, Therapeutic Exercise,Balance Retraining,Discharge Planning, Neuromuscular Re-ed, Coordination Retraining Other Recommendations and Next Treatment bed mobility, transfers, gait, Focus 12-24 stair mgt Recommendations To Nursing Amount of Assist Needed 1 Person Assist Discharge Recommendations PT Discharge Recommendations Home with 14/10 Assist,Home Health,SNF Rehab Other Discharge Recommendations At this time recommending SNF vs 24/7 physical assistance support at home required at this time Equipment Needed for Home Before FWW Discharge Transportation Needs at Discharge Wheelchair/Cabulance,Stretcher /Ambulance
[2019-09-30 14:14] LABS: Creatine Kinase 2340 U/L (30-135)
[2019-09-30 15:15] VITALS: BP 129/77; PULSE 91; RESP 16; TEMP 37.4; O2SAT 99
--- NOTE | 2019-09-30 16:24 | CM.DPNOTE ---
Addendum entered by LAURA Loja 10/01/19 17:39: [facility] unable to take [facility] and provide services to this patient, d/t ETOH and mobility/cog issues. JW Original Note: DC Note DC order in place this AM. Worked on this DCP throughout the day. Attempted to reach admission staff at [facility] and [facility] beds, never heard from [place], checked VM from [facility] at 1630 that they wanted additional clinical and didn't know when they would have a bed available. [facility], [facility] and [facility] unable to accept patient. Placed call to patient's father Asher, he explained he would not drive to to complete cg training or transport patient home because he could barely walk w/o requiring a break to rest and sit down. Asher suggested that he could still drive but would need someone to help him in and out of his car (?) Asher then suggested that his son, patient's brother, Silviano be contacted at P# [phone]. Placed call to Silviano and spoke w/him this afternoon at approx 1400. He explained he could pick patient up at approx 1530. Silviano further explained that patient had been binge drinking off and on for years and when she wasn't drinking she was indp w/ADLs and cognitively completely intact. 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 Silviano suggested that patient has struggled w/alcohol dependence and psychiatric issues her entire life and family have not known how to assist, Silviano understand he and family cannot force patient anywhere but he is unsure how to get her the proper care (?) Suggested a few resource numbers out of the [facility] and discussed when/how to make an APS referral. Placed call to [facility] - unable to take [facility]. Placed call to [facility], unable to take [facility]. Placed call to [facility], faxed referral and now awaiting CB. May not have answer by this afternoon but will anticipate answer w/in 24 hrs and can communicate this w/patient and family. P: DC home w/family, hopefully [facility] will be able to provide HH RN/PT/OT/CHIEF OF PRODUCTION (BOOM CAT OPERATOR not available w/[facility]) close outpt f/u by private family vehicle. Ashly Higuera MSW
--- NOTE | 2019-09-30 16:44 | PC.NURSE ---
1630- Patient discharged to home with her brother. Patient IV removed. Patient discharge instruction and teaching material reviewed. Patient and brother verbalize understanding. Patient assisted with getting dressed and patient sent home with a front wheeled walker. Perscriptions picked up by brother prior to discharge home. Mary Ann from Social Service will f/u with patients brother with community resource information.
== END 2019-09-30 16:30 | disposition home health service (06) | DRG 775 ==
LOC: ED 15:09 → AC 15:10 → ICU 15:32
PROVIDERS: Internal Medicine; Nurse Practitioner Adult Health; Admitting Provider Internal Medicine; Emergency Provider Emergency Medicine; Family Provider Family Medicine; PCP Family Medicine; Referring Provider Emergency Medicine; Visit Provider Internal Medicine
DX: F10.231 Alcohol dependence with withdrawal delirium (principal); K70.10 Alcoholic hepatitis without ascites; Y90.0 Blood alcohol level of less than 20 mg/100 ml; N17.9 Acute kidney failure, unspecified; E87.0 Hyperosmolality and hypernatremia; M62.82 Rhabdomyolysis; D69.59 Other secondary thrombocytopenia; F10.26 Alcohol dependence with alcohol-induced persisting amnestic disorder; F10.259 Alcohol dependence with alcohol-induced psychotic disorder, unspecified; N39.0 Urinary tract infection, site not specified; B96.20 Unspecified Escherichia coli [E. coli] as the cause of diseases classified elsewhere; E86.0 Dehydration; Z03.818 Encounter for observation for suspected exposure to other biological agents ruled out
CPT/HCPCS: 36415; 36600; 51701; 70450; 71045; 72125; 76700; 80048; 80053; 80074; 80076; 80305; 80320; 80329; 81001; 82140; 82550; 82553; 82565; 82805; 82962; 83605; 83735; 84100; 84443; 84484; 85025; 85610; 85730; 86850; 86900; 86901; 87040; 87077; 87086; 87186; 87635; 87797; 93005; 94770; 96365; 96367; 96375; 97116; 97129; 97162; 97165; 97530; 97535; 99285; 99291; 99292; A9270; G0480; J0692; J1200; J1650; J1953; J2060; J2405; J3480; J7050